=== PATIENT | female | born 1940 | race Caucasian/White ===

== ENCOUNTER 2025-01-14 09:18 | Inpatient (IN) | payer OTHER ==
[2025-01-14] MEDS ORDERED: FAMOTIDINE 20 MG/2 ML VIAL IV ONE (09:40)
[2025-01-14] MEDS ORDERED: NA CHLORIDE 0.9% 1,000 ML ONE (09:40)
[2025-01-14 09:49] LABS: Absolute Lymphocytes (CBC) 0.6 K/uL (0.7-4.9); Absolute Monocytes 1.3 K/uL (0.1-1.3); Absolute Neutrophil 11.1 K/uL (1.8-8.0); Basophils % 0.2 % (0-1.3); Hemoglobin 16.8 g/dL (12.0-15.0); Lymphocytes % 4.7 % (15.3-44.8); MCH 31.3 pg (27.0-35.0); MCHC 34.3 g/dL (32.0-36.0); MCV 91.4 fL (80-100); Monocytes % 9.6 % (3.3-12.3); Neutrophils % 85.5 % (41.7-73.7); Nucleated Red Blood Cells % 0.1 % (0-0); Platelets 222 thou/uL (152-406); RBC Red Blood Cell Count 5.37 M/uL (3.86-4.86); Red Cell Distribution Width 13.2 % (12.1-15.2)
[2025-01-14 09:55] LABS: PT Prothrombin Time 12.5 SECONDS (10-13.0); Protime INR 1.1
[2025-01-14 10:16] LABS: Albumin 3.7 g/dL (3.4-5.0); Albumin/Globulin Ratio 0.9 (1.1-1.8); Anion Gap 11.5 mEq/L (5.0-15.0); Bilirubin Direct 0.7 mg/dL (0-0.2); Bilirubin Indirect, Calculated 1.1 mg/dL (0.2-0.8); Bilirubin Total 1.8 mg/dL (0.2-1.0); Magnesium 2.1 mg/dL (1.6-2.4); Potassium 3.5 mEq/L (3.5-5.1); Protein, Total 7.7 g/dL (6.4-8.2); Troponin High Sensitivity 14.8 pg/mL (<58.9)
--- NOTE | 2025-01-14 10:21 | RAD REPORT ---
Procedure: Chest Single View HISTORY: Abdominal pain COMPARISON: 2020 FINDINGS: The lungs appear clear of acute infiltrate. Lungs are mildly to moderately hyperaerated. No significant pleural effusion noted. The heart is normal size. IMPRESSION: No acute abnormality is displayed.
--- NOTE | 2025-01-14 10:50 | RAD REPORT ---
EXAMINATION: CT ABDOMEN AND PELVIS WITH CONTRAST CLINICAL INDICATION: Abdominal pain TECHNIQUE: CT abdomen and pelvis was performed, after the administration of 100 cc Isovue-300.. Sagit bill and coronal reconstructions were obtained. One or more of the following dose reduction techniques were used: Automated exposure control, adjustment of the mA and kV according to patient si ze, and iterative reconstruction. Unless otherwise specified, incidental findings do not require dedicated imaging follow-up. [id number]. Oral contrast was not given which limits evaluation of bowel and appendix. COMPARISON: .None FINDINGS: Liver, spleen, pancreas, adrenals and kidneys appear unremarkable No evidence of diverticulitis. Hysterectomy. Normal appendix. Moderate dilatation of jejunum and portion of ileum. Ileum enters a right inguinal hernia with a thomas sition point. Remainder of the ileum is decompressed. No free air. No abscess. Small amount of free fluid within the pelvis. Abdominal aorta 2.9 cm. Moderate anterior subluxation L5 on S1. Spondylolysis L5.. Mild chronic compression deformity L2 : IMPRESSION: Ileal obstruction as it enters a right inguinal hernia
[2025-01-14] MEDS ORDERED: PIPERACIL/TAZO 3.375 GM VIAL IV ONE (12:26)
[2025-01-14] MEDS ORDERED: NA CHLORIDE 0.9% 100 ML ONE (12:27)
--- NOTE | 2025-01-14 12:42 | EDPHYS ---
Physician Documentation [facility] Name: Carie Pham Age: 84 yrs Sex: Female : 1940 Arrival Date: 01/14/2025 Time: 09:18 Bed 19 Private MD: ED Physician Torres Bella HPI: 01/14 12:31 This 84 yrs old Female presents to ER via Ambulatory with complaints of js Abdominal Pain, Vomiting, not eating or drinking. 12:31 The patient presents to the emergency department with nausea, that is moderate, js vomiting, that is continuous. Historical: - Allergies: 09:29 No Known Allergies; ll1 - Home Meds: 09:57 Albuterol Inhl 1 inhalation every 4 Hours as needed [Active]; atorvastatin 20 mg oral aa5 tablet every day at bedtime [Active]; Breztri Aerosphere 160-9-4.8 mcg/actuation inhalation HFA Aerosol Inhaler 2 inhalations 2 times per day [Active]; dicyclomine 10 mg Oral capsule [Active]; meloxicam 15 mg oral tablet daily [Active]; Zofran Oral 4 mg PRN [Active]; propranolol 60 mg Oral tablet daily [Active]; Repatha SureClick 140 mg/mL subcutaneous Pen Injector 140 mg every 2 weeks [Active]; ropinirole 1 mg oral tablet every day at bedtime for restless leg syndrome [Active]; trazodone 50 mg oral tablet every day at bedtime [Active]; nicotine 21 mg/24 hr TD patch, transdermal 24 hours daily [Active]; acetaminophen 650 mg oral tablet, extended release every 12 hours for arthritic pain [Active]; - PMHx: 09:30 COPD; Hypertensive disorder; Hypercholesterolemia; Osteoarthritis; Acid Reflux; aa5 09:57 RLS; T1 Vertebral Fracture; aa5 - PSHx: 09:30 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 - Infectious Disease History:: Denies. - Social history:: Smoking status: Patient reports the use of cigarette tobacco products, smokes one pack cigarettes per day. ROS: 12:33 Constitutional: Negative for fever, chills, and weight loss, Eyes: Negative for injury, js pain, redness, and discharge, ENT: Negative for injury, pain, and discharge, Neck: Negative for injury, pain, and swelling, Cardiovascular: Negative for chest pain, palpitations, and edema, Respiratory: Negative for shortness of breath, cough, wheezing, and pleuritic chest pain, Back: Negative for injury and pain, : Negative for injury, bleeding, discharge, and swelling, MS/Extremity: Negative for injury and deformity, Skin: Negative for injury, rash, and discoloration, Neuro: Negative for headache, weakness, numbness, tingling, and seizure, Psych: Negative for depression, anxiety, suicide ideation, homicidal ideation, and hallucinations, Allergy/Immunology: Negative for hives, rash, and allergies, Endocrine: Negative for neck swelling, polydipsia, polyuria, polyphagia, and marked weight changes, Hematologic/Lymphatic: Negative for swollen nodes, abnormal bleeding, and unusual bruising, 12:33 Abdomen/GI: Positive for abdominal pain, nausea and vomiting, of the right lower quadrant, Exam: 12:33 Constitutional: This is a well developed, well nourished patient who is awake, alert, js and in no acute distress. Head/Face: Normocephalic, atraumatic. Eyes: Pupils equal round and reactive to light, extra-ocular motions intact. Lids and lashes normal. Conjunctiva and sclera are non-icteric and not injected. Cornea within normal limits. Periorbital areas with no swelling, redness, or edema. ENT: Nares patent. No nasal discharge, no septal abnormalities noted. Tympanic membranes are normal and external auditory canals are clear. Oropharynx with no redness, swelling, or masses, exudates, or evidence of obstruction, uvula midline. Mucous membranes moist. Neck: Trachea midline, no thyromegaly or masses palpated, and no cervical lymphadenopathy. Supple, full range of motion without nuchal rigidity, or vertebral point tenderness. No Meningismus. Chest/axilla: Normal chest wall appearance and motion. Nontender with no deformity. No lesions are appreciated. Cardiovascular: Regular rate and rhythm with a normal S1 and S2. No gallops, murmurs, or rubs. Normal PMI, no JVD. No pulse deficits. Respiratory: Lungs have equal breath sounds bilaterally, clear to auscultation and percussion. No rales, rhonchi or wheezes noted. No increased work of breathing, no retractions or nasal flaring. Back: No spinal tenderness. No costovertebral tenderness. Full range of motion. Skin: Warm, dry with normal turgor. Normal color with no rashes, no lesions, and no evidence of cellulitis. MS/ Extremity: Pulses equal, no cyanosis. Neurovascular intact. Full, normal range of motion., bilateral aka Neuro: Awake and alert, GCS 15, oriented to person, place, time, and situation. Cranial nerves II-XII grossly intact. Motor strength 5/5 in all extremities. Sensory grossly intact. Cerebellar exam normal. Normal gait. Psych: Awake, alert, with orientation to person, place and time. Behavior, mood, and affect are within normal limits. 12:33 ECG was reviewed by the Attending Physician. 12:33 Abdomen/GI: Inspection: abdomen appears normal, Bowel sounds: active, Palpation: moderate abdominal tenderness, in the left lower quadrant, Vital Signs: 09:29 BP 144 / 87; Pulse 104; Resp 18; Temp 98.1; Pulse Ox 99% ; Weight 58.97 kg; Height 5 ll1 ft. 2 in. ; Pain 10/10; 14:00 BP 127 / 75; Pulse 89; Resp 16; Pulse Ox 93% on R/A; jb4 09:29 Body Mass Index 23.78 (58.97 kg, 157.48 cm) ll1 09:29 Pain Scale: Adult ll1 MDM: 09:24 Medical Screening Exam initiated js 12:37 Differential diagnosis: Nonspecific abd pain, viral gastroenteritis. Data reviewed: [facility] vital signs, nurses notes, lab test result(s), EKG, radiologic studies, CT scan, plain films. Consideration of Admission/Observation Escalation of care including admission/observation considered. I considered the following discharge prescriptions or medication management in the emergency department Medications were administered in the Emergency Department. See MAR. Independent interpretation of the following test(s) in the Emergency Department EKG: See my EKG interpretation above. Test considered but Not performed: Ultrasound no abd usg. Historians other than the Patient: Family Member: multiple family members. Care significantly affected by the following chronic conditions: Hypertension, Chronic Obstructive Pulmonary Disease, gerd, high cholesterol. Counseling: I had a detailed discussion with the patient and/or guardian regarding the historical points, exam findings, and any diagnostic results supporting the discharge/admit diagnosis, lab results, radiology results, the need for further work-up and treatment in the hospital. 01/14 09:25 Order name: Basic Metabolic Panel; Complete Time: 12:02 js 01/14 09:25 Order name: CBC with Diff; Complete Time: 12:02 01/14 09:25 Order name: LFT's; Complete Time: 12:02 01/14 09:25 Order name: Magnesium; Complete Time: 12:02 js 01/14 09:25 Order name: NT PRO-BNP; Complete Time: 12:02 01/14 09:25 Order name: PT-INR; Complete Time: 12:02 01/14 09:25 Order name: Troponin HS; Complete Time: 12:02 js 01/14 09:25 Order name: Lipase; Complete Time: 12:02 js 01/14 09:25 Order name: Urinalysis w/ reflexes js 01/14 13:06 Order name: CBC with Automated Diff EDMS 01/14 13:06 Order name: CBC with Automated Diff EDMS 01/14 13:06 Order name: CBC with Automated Diff EDMS 01/14 13:06 Order name: CBC with Automated Diff EDMS 01/14 13:06 Order name: CBC with Automated Diff EDMS 01/14 13:06 Order name: Comprehensive Metabolic Panel EDMS 01/14 13:06 Order name: Comprehensive Metabolic Panel EDMS 01/14 13:06 Order name: Comprehensive Metabolic Panel EDMS 01/14 13:06 Order name: Comprehensive Metabolic Panel EDMS 01/14 13:06 Order name: Comprehensive Metabolic Panel EDMS 01/14 13:06 Order name: Magnesium EDMS 01/14 13:06 Order name: Magnesium EDMS 01/14 13:06 Order name: Magnesium EDMS 01/14 13:06 Order name: Magnesium EDMS 01/14 13:06 Order name: Magnesium EDMS 01/14 09:25 Order name: XRAY Chest (1 view); Complete Time: 12:02 js 01/14 09:25 Order name: CT Abd/Pelvis - IV Contrast Only; Complete Time: 12:02 js 01/14 09:25 Order name: Cardiac monitoring; Complete Time: 09:55 01/14 09:25 Order name: EKG - Nurse/Tech; Complete Time: 09:55 01/14 09:25 Order name: IV Saline Lock; Complete Time: 09:55 01/14 09:25 Order name: Labs collected and sent; Complete Time: : [facility] 01/14 09:25 Order name: O2 Per Protocol; Complete Time: [facility] 01/14 09:25 Order name: O2 Sat Monitoring; Complete Time: [facility] 01/14 12:29 Order name: NPO; Complete Time: 12:57 js EC:33 Rate is 96 beats/min. Rhythm is regular. QRS [place] is Normal. MT interval is normal. QRS js interval is normal. QT interval is normal. No Q waves. T waves are Normal. No ST changes noted. Clinical impression: NSR w/ Non-specific ST/T Changes and No evidence of ischemia. Interpreted by me. Reviewed by me. Administered Medications: : Drug: NS 0.9% IV 1000 ml IV at 1000 ml once; to be given as a bolus over 60 minutes aa5 Route: IV; Rate: 1000 ml; Site: right antecubital; 09:55 Drug: Famotidine IVP 20 mg IVP once; dilute with 10 mL 0.9% NaCl; give over 2 minutes aa5 Route: IVP; Site: right antecubital; 13:03 Drug: Piperacillin-Tazobactam IVPB 3.375 grams IVPB once over 60 mins; (mix in NS 100 jb4 mL) Route: IVPB; Infused Over: 60 mins; Site: right antecubital; 13:40 Drug: morphine IVP or IV 2 mg IVP once over 4 mins Route: IVP; Infused Over: 4 mins; jb4 Site: right antecubital; 13:40 Drug: Ondansetron IVP 4 mg IVP once; over 2 minutes Route: IVP; Site: right antecubital;jb4 15:13 Not Given (Patient Refused): morphineor iv 2 mg IVP once over 4 mins jb4 Disposition Summary: 01/14/25 12:42 Hospitalization Ordered Notes: Hospitalization Status: Inpatient Admission js Provider: Sherwin Uriostegui cha Location: Telemetry/MedSurg (Inpatient) js Condition: Stable js Problem: new js Symptoms: have improved js Bed/Room Type: Standard [facility] Room Assignment: js Diagnosis - Abdominal tenderness js - Other specified abdominal hernia with obstruction, without gangrene - right js inguinal , ileal obstruction - Vomiting js - COPD/ Chronic obstructive pulmonary disease with (acute) exacerbation js Forms: - Medication Reconciliation Form js - SBAR form js - Leadership Thank You Letter js Signatures: Dispatcher [employer] EDTorres De La Paz MD MD cha Calderon, Audri, RN RN aa5 Rodriguez Aly, RN RN jb4 Ranjit Maciel, SCARLETT RN ll1 Corrections: (The following items were deleted from the chart) 09: 09:25 BASIC METABOLIC PANEL+C.LAB.BRZ ordered. EDMS EDMS 09: 09:25 CBC+H.LAB.BRZ ordered. EDMS EDMS 09: 09:25 HEPATIC FUNCTION+C.LAB.BRZ ordered. EDMS EDMS 09: 09:25 MAGNESIUM+C.LAB.BRZ ordered. EDMS EDMS 09: 09:25 PROBNP+C.LAB.BRZ ordered. EDMS EDMS 09: 09:25 PROTIME (+INR)+COAG.LAB.BRZ ordered. EDMS EDMS 09: 09:25 Troponin High Sensitivity+C.LAB.BRZ ordered. EDMS EDMS 09: 09:25 LIPASE+C.LAB.BRZ ordered. EDMS EDMS 09: 09:25 Urinalysis+U.LAB.BRZ ordered. EDMS EDMS 09: 09:26 Chest Single View+RAD.RAD.BRZ ordered. EDMS EDMS 09: 09:26 Abdomen Pelvis W Con+CT.RAD.BRZ ordered. EDMS EDMS
--- NOTE | 2025-01-14 12:42 | ER ---
Nurse's Notes [facility] Name: Carie Pham Age: 84 yrs Sex: Female : 1940 Arrival Date: 01/14/2025 Time: 09:18 Bed 19 Private MD: Diagnosis: Abdominal tenderness;Other specified abdominal hernia with obstruction, without gangrene-right inguinal , ileal obstruction;Vomiting;COPD/ Chronic obstructive pulmonary disease with (acute) exacerbation Presentation: 01/14 09:29 Chief complaint: Patient states: Abdominal pain with N/V, and not eating well for 5 ll1 days. Coronavirus screen: Client denies travel out of the [place] in the last 14 days. At this time, the client does not indicate any symptoms associated with coronavirus-19. Ebola Screen: Patient denies travel to an Ebola-affected area in the 21 days before illness onset. Initial Sepsis Screen: Does the patient meet any 2 criteria? No. Patient's initial sepsis screen is negative. Does the patient have a suspected source of infection? No. Patient's initial sepsis screen is negative. Risk Assessment: Do you want to hurt yourself or someone else? Patient reports no desire to harm self or others. Onset of symptoms was January 09, 2025. 09:29 Method Of Arrival: Ambulatory ll1 09:29 Acuity: HI 3 ll1 Triage Assessment: 09:31 General: Appears uncomfortable, ill, slender, Behavior is calm, cooperative, ll1 appropriate for age. Pain: Complains of pain in abdomen Quality of pain is described as aching, crampy. Neuro: Reports weakness. GI: Reports lower abdominal pain, upper abdominal pain, bloating, cramping, nausea, vomiting. Historical: - Allergies: 09:29 No Known Allergies; ll1 - Home Meds: 09:57 Albuterol Inhl 1 inhalation every 4 Hours as needed [Active]; atorvastatin 20 mg oral aa5 tablet every day at bedtime [Active]; Breztri Aerosphere 160-9-4.8 mcg/actuation inhalation HFA Aerosol Inhaler 2 inhalations 2 times per day [Active]; dicyclomine 10 mg Oral capsule [Active]; meloxicam 15 mg oral tablet daily [Active]; Zofran Oral 4 mg PRN [Active]; propranolol 60 mg Oral tablet daily [Active]; Repatha SureClick 140 mg/mL subcutaneous Pen Injector 140 mg every 2 weeks [Active]; ropinirole 1 mg oral tablet every day at bedtime for restless leg syndrome [Active]; trazodone 50 mg oral tablet every day at bedtime [Active]; nicotine 21 mg/24 hr TD patch, transdermal 24 hours daily [Active]; acetaminophen 650 mg oral tablet, extended release every 12 hours for arthritic pain [Active]; - PMHx: 09:30 COPD; Hypertensive disorder; Hypercholesterolemia; Osteoarthritis; Acid Reflux; aa5 09:57 RLS; T1 Vertebral Fracture; aa5 - PSHx: 09:30 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 - Infectious Disease History:: Denies. - Social history:: Smoking status: Patient reports the use of cigarette tobacco products, smokes one pack cigarettes per day. Screenin:30 [facility] ED Fall Risk Assessment (Adult) History of falling in the last 3 months, aa5 including since admission No falls in past 3 months (0 pts) Confusion or Disorientation No (0 pts) Intoxicated or Sedated No (0 pts) Impaired Gait No (0 pts) Mobility Assist Device Used No (0 pt) Altered Elimination No (0 pt) Score/Fall Risk Level 0 - 2 = Low Risk Oriented to surroundings, Maintained a safe environment, Educated pt \T\ family on fall prevention, incl call for assistance when getting out of bed, Assessed \T\ reinforced patient's understanding of fall precautions. Abuse screen: Denies threats or abuse. Nutritional screening: No deficits noted. Tuberculosis screening: No symptoms or risk factors identified. Assessment: 09:30 General: Appears uncomfortable, Behavior is calm, cooperative. Pain: Complains of pain aa5 in right lower quadrant and left lower quadrant Pain currently is 10 out of 10 on a pain scale. Quality of pain is described as sharp, Pain began 2-3 days ago. Is continuous. Neuro: Level of Consciousness is awake, alert, obeys commands, Oriented to person, place, time, situation. Cardiovascular: Heart tones S1 S2 present Patient's skin is warm and dry. Rhythm is regular. Respiratory: Airway is patent Respiratory effort is even, unlabored, Respiratory pattern is regular, symmetrical. GI: Abdomen is round non-distended, Bowel sounds present X 4 quads. Abd is soft and non tender X 4 quads. Reports nausea, vomiting, decreased appetite x 5 days ago. : No signs and/or symptoms were reported regarding the genitourinary system. EENT: No signs and/or symptoms were reported regarding the EENT system. Derm: Skin is pink, warm \T\ dry. Musculoskeletal: Range of motion: intact in all extremities. 10:31 Reassessment: Patient is alert, oriented x 3, equal unlabored respirations, skin aa5 warm/dry/pink. Pt back from CT. Call light remains within reach. . 12:00 Reassessment: Patient appears in no apparent distress at this time. Patient and/or jb4 family updated on plan of care and expected duration. Pain level reassessed. Patient is alert, oriented x 3, equal unlabored respirations, skin warm/dry/pink. Vital Signs: 09:29 BP 144 / 87; Pulse 104; Resp 18; Temp 98.1; Pulse Ox 99% ; Weight 58.97 kg; Height 5 ll1 ft. 2 in. ; Pain 10/10; 14:00 BP 127 / 75; Pulse 89; Resp 16; Pulse Ox 93% on R/A; jb4 09:29 Body Mass Index 23.78 (58.97 kg, 157.48 cm) ll1 09:29 Pain Scale: Adult ll1 ED Course: 09:22 Patient arrived in ED. al6 09:23 Arm band placed on Patient placed in an exam room, on a stretcher. ll1 09:24 Torres Bella MD is Attending Physician. js 09:29 Bibiana Wall, RN is Primary Nurse. aa5 09:30 Patient has correct armband on for positive identification. Bed in low position. Call aa5 light in reach. 09:31 Triage completed. ll1 10:13 XRAY Chest (1 view) In Process Unspecified. EDMS 10:28 CT Abd/Pelvis - IV Contrast Only In Process Unspecified. EDMS 10:29 No provider procedures requiring assistance completed. aa5 12:00 Report given to Rodriguez Day RN. aa5 12:40 Sherwin Uriostegui MD is Hospitalizing Provider. [facility] 14:00 Provided Education on: need for admit. jb4 14:00 Patient admitted, IV remains in place. jb4 Administered Medications: 09:55 Drug: NS 0.9% IV 1000 ml IV at 1000 ml once; to be given as a bolus over 60 minutes aa5 Route: IV; Rate: 1000 ml; Site: right antecubital; 09:55 Drug: Famotidine IVP 20 mg IVP once; dilute with 10 mL 0.9% NaCl; give over 2 minutes aa5 Route: IVP; Site: right antecubital; 13:03 Drug: Piperacillin-Tazobactam IVPB 3.375 grams IVPB once over 60 mins; (mix in NS 100 jb4 mL) Route: IVPB; Infused Over: 60 mins; Site: right antecubital; 13:40 Drug: morphine IVP or IV 2 mg IVP once over 4 mins Route: IVP; Infused Over: 4 mins; jb4 Site: right antecubital; 13:40 Drug: Ondansetron IVP 4 mg IVP once; over 2 minutes Route: IVP; Site: right antecubital;jb4 15:13 Not Given (Patient Refused): morphineor iv 2 mg IVP once over 4 mins jb4 Medication: 10:29 VIS not applicable for this client. aa5 Outcome: 12:42 Decision to Hospitalize by Provider. js 14:00 Admitted to OR accompanied by nurse, via stretcher, jb4 14:00 Condition: stable 14:00 Discharge instructions given to patient, family, Instructed on the need for admit, Demonstrated understanding of instructions, 15:15 Patient left the ED. jb4 Signatures: Dispatcher [employer] Torres Walsh MD MD cha Calderon, Audri RN RN aa5 Rodriguez Aly RN RN jb4 Ranjit Maciel RN RN ll1 Chelly Merritt ne6
[2025-01-14] MEDS ORDERED: MORPHINE 2 MG/ML SYR IV PRN (13:02)
[2025-01-14] MEDS ORDERED: ONDANSETRON 4 MG/2 ML VIAL ONE ×2 (13:35→17:14)
[2025-01-14] MEDS ORDERED: MORPHINE 2 MG/ML SYR ONE (13:35)
[2025-01-14] MEDS: Ringers Lactate 1,000 ML IV ONE ×2 (14:58→19:32)
--- NOTE | 2025-01-14 15:41 | P.HP ---
Certification for Inpatient Patient admitted to: Inpatient With expected LOS: >2 Midnights Patient will require the following post-hospital care: None Practitioner: I am a practitioner with admitting privileges, knowledge of patient current condition, hospital course, and medical plan of care. Services: Services provided to patient in accordance with Admission requirements found in Title 42 Section 412.3 of the Code of Federal Regulations Patient History Date of Service: 01/14/25 Reason for admission: SBO/hernia History of Present Illness: 84-year-old female with history of COPD, hypertension, osteoarthritis, GERD presents to the emergency department chief complaint of abdominal pain, nausea and poor oral intake for the past few days. She was evaluated in the emergency department and her labs were significant for a white blood cell count of 13 hemoglobin 16.8 hematocrit 49.0 sodium 135 chloride 93 bicarb 34 glucose 156 T. bili 1.8 BNP 579 EKG shows normal sinus rhythm. CT of the abdomen pelvis was performed which demonstrated ileal obstruction as it enters a right inguinal hernia. General surgery was contacted by emergency department staff who has evaluated patient at bedside and will be taking him to the operating room for surgical intervention. Allergies No Known Allergies Allergy (Unverified 03/03/12 14:41) - Past Medical/Surgical History -: COPD -: Hyperlipidemia -: Osteoarthritis -: GERD -: Partial hysterectomy -: Stomach mass removal-noncancerous Psychosocial/ Personal History: Lives at home with her daughter - Family History Family History: Reviewed- Non-Contributory - Social History Alcohol use: No CD- Drugs: No Caffeine use: Yes Place of Residence: Home Review of Systems 10-point ROS is otherwise unremarkable Gastrointestinal: Nausea, Vomiting, Abdominal Pain Physical Examination - Vital Signs Temperature: 97.6 F Blood Pressure: 131/66 Pulse: 86 Respirations: 18 - Physical Exam General: Alert, In no apparent distress, Oriented x3 HEENT: Atraumatic, PERRLA, EOMI Neck: Supple, 2+ carotid pulse no bruit, No LAD Respiratory: Clear to auscultation bilaterally, Normal air movement Cardiovascular: Regular rate/rhythm, Normal S1 S2 Gastrointestinal: Normal bowel sounds, Tenderness (Moderate generalized abdominal tenderness) Musculoskeletal: No tenderness Integumentary: No rashes Neurological: Normal speech, Normal strength at 5/5 x4 extr, Normal affect - Studies Laboratory Data (last 24 hrs) 01/14/25 01/14/25 01/14/25 09:37 09:37 09:37 WBC 13.00 H Hgb 16.8 H Hct 49.0 H Plt Count 222 PT 12.5 INR 1.10 Sodium 135 L Potassium 3.5 BUN 30 H Creatinine 0.84 Glucose 156 H Magnesium 2.1 Total Bilirubin 1.8 H AST 24 ALT 19 Alkaline Phosphatase 79 Lipase 17 Assessment and Plan - Plan Assessment: Ileal obstruction/right inguinal hernia History of COPD Hyperlipidemia Osteoarthritis GERD Plan: Ileal obstruction/right inguinal hernia Taken to operating room for operative management Continue empiric antibiotics with Zosyn IV fluids, as needed pain medications and antiemetics Further planning per general surgery History of COPD As needed nebulizer treatments Hyperlipidemia Osteoarthritis GERD Continue home medications when verified DVT PPX:SCD Code status:Full Discharge Plan: Home Plan to discharge in: Greater than 2 days - Advance Directives Does patient have a Living Will: No Does patient have a Durable POA for Healthcare: No - Code Status/Comfort Care Code Status Assessed: Yes (Full code) Critical Care: No Time Spent Managing Pts Care (In Minutes): 65
--- NOTE | 2025-01-14 15:50 | P.CNS ---
Date of Consult: 01/14/25 Reason for consult: Abdominal pain History of present illness: Patient is a 84-year-old female comes in with 4-day history of diffuse abdominal pain localizing in the right lower quadrant. Patient has had nausea and vomiting. Patient denies any bowel movement or flatus for the last 4 days. Patient denies any blood per rectum, dysuria or hematuria. Patient denies any sore throat, runny nose, cough, headache, dizziness, chest pain, fever or chills. Review of systems: Otherwise unremarkable Past medical history: COPD, hyperlipidemia, GERD and osteoarthritis Past surgical history: Partial hysterectomy and removal of a large mass via Pfannenstiel incision 15 years ago. Patient and family do not remember the pathology report but were told it was benign. Allergies: None none Social history: She does smoke 1 pack a day for the last 70+ yearspatient was counseled, patient denies drinking alcohol Family history: Noncontributory Vital signs: Stable, afebrile Physical exam: Awake, alert and oriented x 3 Head and neck exam: No neck masses, no JVD, throat clear and neck supple Chest: Clear Heart: S1-S2 Abdomen: Soft, hypoactive bowel sounds, minimal distention with diffuse tenderness and right lower quadrant/right groin hard mass with red skin extremely tender and tense Extremity: Neurovascular intact Neuro: Nonfocal Diagnostic data: CT of the abdomen and pelvis reviewed. Findings are consistent with a incarcerated right inguinal hernia with ileum as a transition point. White count is 13,000 with a left shift remainder of laboratory data reviewed Assessment: Incarcerated right inguinal hernia with possible strangulation given the clinical findings Plan/recommendation: Admit, n.p.o., aggressive hydration and IV antibiotics. To the OR for diagnostic laparoscopy possible exploratory laparotomy possible bowel resection and repair of incarcerated possible strangulated right inguinal hernia. Patient and family understand risk, benefits and alternatives and agreed to procedure. CC:
[2025-01-14] MEDS ORDERED: ROCURONIUM 50 MG/5 ML VIAL IV ONE (16:03)
[2025-01-14] MEDS ORDERED: FENTANYL CITR 250 MCG/5 ML ONE (16:03)
[2025-01-14] MEDS ORDERED: propofoL 200 MG/20 ML VIAL IV ONE (16:03)
[2025-01-14] MEDS: CEFOXITIN SODIUM 1 GM/VIAL ONE (16:23)
[2025-01-14] MEDS ORDERED: dexAMETHasone 4 MG/ML VIAL ONE (17:14)
[2025-01-14] MEDS ORDERED: NEOSTIGMINE 1 MG/ML -10 ML VIAL ONE (17:18)
[2025-01-14] MEDS ORDERED: GLYCOPYRROLATE 0.2 MG/ML SYR ONE (17:19)
--- NOTE | 2025-01-14 17:44 | P.OP ---
Date of Service: 01/14/25 Preop diagnosis: Abdominal pain, incarcerated right inguinal hernia Postop diagnosis: Same with extensive adhesions Procedure performed: Diagnostic laparoscopy, extensive lysis of adhesion, repair of incarcerated right inguinal hernia Surgeon: Ronnie Stovall MD Escalator Mechanic: Cony DIAMOND Estimated blood loss: Minimal Specimen: Hernia sac Findings: As above Anesthesia: General Complications: None Drains: None Fluids and blood products: Nonapplicable Disposition: Recovery room Operative note: Patient brought to the OR and placed in the supine position. General anesthesia began. Patient prepped and draped in usual sterile fashion. Marcaine 0.5% infiltrated locally for postop pain control. 15 blade used to make 1 cm supraumbilical midline incision. Subcutaneous tissue divided and fascia identified and divided. Bleeding controlled cautery. #1 Vicryl stay suture placed. Peritoneal cavity entered with sharp and blunt dissection. 12 mm trocar placed into the peritoneal cavity under direct vision. Pneumoperitoneum established. And under direct vision two 5 mm trocars placed 1 in the right middle quadrant and the other in the right lower quadrant. Laparoscopy revealed extensive adhesions in the midline and the right lower quadrant. LigaSure, scissors and blunt dissection utilized to lyse all of the adhesions for an extended period of time. Bowel was carefully handled while being dissected. The right inguinal hernia was identified. There was incarcerated ileum in the hernia with proximal dilatation and distal collapse. Gentle manipulation of the intestines was utilized to reduce the hernia intraperitonealy. The reduced bowel was carefully examined. There was good color and motility noted. The proximal dilatation began to reduce itself. There was no evidence of bleeding or bowel injury appreciated. Subsequently all trocars were removed under direct vision. Stay sutures were tied to each other to reapproximate the fascial defect. Subcu is wound irrigated and bleeding controlled cautery. 3-0 chromic used to approximate subcutaneous tissue and close skin. A 4 cm incision was made over the hernia site in the right groin. There was still a palpable mass in the right groin. This was the remaining hernia sac. Subcutaneous tissue divided and Chloe's fascia identified and d ivided. Bleeding controlled cautery. Aponeurosis of the external abdominal bleak was greatly attenuated. The hernia sac however was hemorrhagic and had areas of necrosis. The entire hernia sac was excised and sent to pathology as specimen. A 2 cm defect remained. A Marlex mesh plug was placed and secured with absorbable stapler. Onlay mesh was placed on top of the plug and secured with absorbable stapler as well. Complete coverage of the hernia site was accomplished. 3-0 chromic was used to reapproximate Chloe's fascia. 3-0 chromic was also used to close skin. Sterile dressing applied and patient awakened. Patient taken to recovery room in good general condition. CC:
[2025-01-14] MEDS: NA CHLORIDE 0.9% 1,000 ML IV SCH (18:54)
[2025-01-14] MEDS: ONDANSETRON 4 MG/2 ML VIAL IV PRN (18:56)
[2025-01-14] MEDS: PIPER TAZO 3.375 GM in NA CHLORIDE 0.9% 100 ML IV SCH (18:56)
[2025-01-14] MEDS: SUCCINYLCHOLINE 20 MG/ML (10 ML) IV ONE (19:33)
[2025-01-14] MEDS: HYDROMORPHONE HCL 1 MG/ML INJ IV PRN (19:43)
[2025-01-15 06:08] LABS: Absolute Lymphocytes (CBC) 0.3 K/uL (0.7-4.9); Absolute Monocytes 0.5 K/uL (0.1-1.3); Absolute Neutrophil 4.5 K/uL (1.8-8.0); Albumin 2.6 g/dL (3.4-5.0); Albumin/Globulin Ratio 0.9 (1.1-1.8); Anion Gap 11.3 mEq/L (5.0-15.0); Basophils % 0.5 % (0-1.3); Bilirubin Total 1.7 mg/dL (0.2-1.0); Eosinophils % 0.1 % (0-4.4); Hematocrit 42.6 % (36.0-45.0); Hemoglobin 14.6 g/dL (12.0-15.0); Lymphocytes % 5.8 % (15.3-44.8); MCH 31.5 pg (27.0-35.0); MCHC 34.2 g/dL (32.0-36.0); MCV 92.1 fL (80-100); MPV 9.4 fL (7.6-11.3); Magnesium 1.7 mg/dL (1.6-2.4); Monocytes % 9.4 % (3.3-12.3); Neutrophils % 84.2 % (41.7-73.7); Phosphorus 4.4 mg/dL (2.5-4.9); Platelets 181 thou/uL (152-406); Potassium 3.3 mEq/L (3.5-5.1); Protein, Total 5.6 g/dL (6.4-8.2); RBC Red Blood Cell Count 4.63 M/uL (3.86-4.86); Red Cell Distribution Width 13.3 % (12.1-15.2)
[2025-01-15 06:35] LABS: Specific Gravity > 1.030 (1.005-1.030); Urine Bacteria None Seen /HPF (<20); Urine Bilirubin 1+ (Negative); Urine Blood Trace (Negative); Urine Clarity Extremely Turbid (Clear); Urine Color Yellow (Yellow); Urine Culture Reflex Order REFLEXED; Urine Glucose TRACE (Negative); Urine Ketones 1+ (Negative); Urine Microscopic Reflex YN ORDER UMIC; Urine Nitrite NEGATIVE (Negative); Urine Protein 1+ (Negative); Urine Urobilinogen Normal (Normal); Urine pH 5.5 (5.0-7.0)
[2025-01-15 08:00] LABS: Differential Total Cells Count 100; Lymphocytes 12 % (15-42); Monocytes 11 % (0-10); Platelet Estimate ADEQ; Segmented Neutrophils 77 % (40-80)
[2025-01-15 08:01] LABS: Blood Morphology Comment NOT SEEN (NOT SEEN)
[2025-01-15] MEDS: POTASSIUM CL SA 10 MEQ TAB PO ONE (08:31)
--- NOTE | 2025-01-15 09:35 | P.PN ---
Date of Service: 01/15/25 Subjective: Doing well overnight Reports some abdominal soreness but better than yesterday Tolerating clear liquids ROS: 10 point ROS as noted above, otherwise negative Physical exam GEN: Alert, oriented, NAD HEENT: Normal conjunctiva, sclera anicteric CV: Regular rate and rhythm, no edema Pulm: Nonlabored respirations on room air ABD: Soft, mild generalized abdominal tenderness, nondistended, surgical dressings in place MSK: No joint tenderness Integumentary: No rashes Neuro: Normal speech, normal affect Vitals reviewed Assessment: Incarcerated right inguinal hernia with small bowel obstruction status post laparoscopy, adhesion lysis, repair of incarcerated right inguinal hernia 01/14 History of COPD Hyperlipidemia Osteoarthritis GERD Plan: Incarcerated right inguinal hernia with small bowel obstruction status post laparoscopy, adhesion lysis, repair of incarcerated right inguinal hernia 01/14 Status post surgical intervention 01/14 Procedure was able to be done laparoscopically Patient doing well postoperatively, tolerating clear liquids at this time Likely stable for downgrade from ICU pending surgical evaluation Per general surgery, possible discharge in 1 to 2 days History of COPD As needed nebulizer treatments Hyperlipidemia Osteoarthritis GERD Continue home medications DVT PPX:SCD Code status:Full Discharge Plan: Home Plan to discharge in: 1-2 days Time Spent Managing Pts Care (In Minutes): 35
--- NOTE | 2025-01-15 10:40 | PN ---
Date of Progress Note: 01/15/2025 Subjective: The patient is awake, alert. Complaining of incisional pain. Tolerating clear liquids. Has not had a bowel movement or passed any gas yet. Her white count is normal. H and H are stabl e. She was dehydrated, and her H and H had dropped a little bit secondary to hydration. Objective: Vital Signs: Stable. She is afebrile. Abdomen: Soft, nondistended. Positive bowel sounds. Dressings are clean, dry, intact. There is mi nimal incisional tenderness. There is no evidence of peritonitis. Assessment: Status post diagnostic laparoscopy, lysis of adhesions, and repair of incarcerated right inguinal hernia. Recommendation: Clear liquids today. Transfer to regular floor. Continue incentive spirometry and DVT prophylaxis with Lovenox and SCDs. PT if needed for ambulation. The patient is clinically stabl e, slowly improving. Hopefully home in 24 to 48 hours. /MODL Voice ID: [id number] Report ID: [id number]
[2025-01-15] MEDS: ENOXAPARIN 40 MG/0.4 ML SQ SCH (11:25)
[2025-01-15] MEDS: MAGNESIUM SULFATE 1 gm IVPB 1 GM/100 ML BAG IV ONE (11:25)
[2025-01-15] MEDS: HYDROCODONE/APAP 7.5/325 MG TAB PO PRN (11:27)
--- NOTE | 2025-01-15 14:19 | EKG ---
Test Date: 2025-01-14 Test Time: 09:49:19 Machine Carton Marker: DEB MEASUREMENT RESULTS: Intervals: Rate: 96 ND: 132 QRSD: 76 QT: 346 QTc: 437 [place]: P: 74 ND: 132 QRS: 23 T: 12 INTERPRETIVE STATEMENTS: Sinus rhythm Nonspecific ST abnormality Abnormal ECG Compared to ECG 06/28/2009 12:17:55 ST (T wave) deviation now present Sinus bradycardia no longer present Electronically Signed On 01-15-25 14:13:51 CDT by Ethan Earl
[2025-01-15] MEDS: PANTOPRAZOLE 40MG TABLET PO SCH (23:30)
[2025-01-16 05:45] LABS: Hematocrit 41.6 % (36.0-45.0); Hemoglobin 14.2 g/dL (12.0-15.0); MCH 31.9 pg (27.0-35.0); MCHC 34.2 g/dL (32.0-36.0); MCV 93.2 fL (80-100); MPV 10.2 fL (7.6-11.3); Nucleated Red Blood Cells % 0.1 % (0-0); Platelets 164 thou/uL (152-406); RBC Red Blood Cell Count 4.46 M/uL (3.86-4.86); Red Cell Distribution Width 13.3 % (12.1-15.2)
[2025-01-16 06:05] LABS: AST/SGOT 22 U/L (15-37); Albumin 2.3 g/dL (3.4-5.0); Albumin/Globulin Ratio 0.7 (1.1-1.8); Alkaline Phosphatase 49 U/L (45-117); Anion Gap 15.2 mEq/L (5.0-15.0); BUN Blood Urea Nitrogen 53 mg/dL (7-18); Bicarbonate 24 mEq/L (21-32); Bilirubin Total 2.3 mg/dL (0.2-1.0); Globulin 3.3 g/dL (2.3-3.5); Glomerular Filtration Rate 21 ml/min (=/>90); Glucose Level 88 mg/dL (74-106); Potassium 4.2 mEq/L (3.5-5.1); Protein, Total 5.6 g/dL (6.4-8.2); Sodium Level 128 mEq/L (136-145)
[2025-01-16 06:08] LABS: ALT/SGPT < 14 U/L (13-56)
[2025-01-16 08:45] LABS: Band Neutrophils 54 % (0-1); Differential Total Cells Count 100; Lymphocytes 7 % (15-42); Monocytes 8 % (0-10); Myelocytes 2 % (0-0); Segmented Neutrophils 29 % (40-80)
[2025-01-16 08:46] LABS: Blood Morphology Comment NOT SEEN (NOT SEEN); Platelet Estimate ADEQ; Platelets, Giant PRESENT
[2025-01-16] MEDS: BREZTRI IH SCH (09:36)
--- NOTE | 2025-01-16 10:05 | PN ---
Date of Progress Note: 01/16/2025 Subjective: The patient is awake, alert, tolerating clear liquids. No nausea, no vomiting. She is passing gas now. Objective: Vital Signs: Stable. She is afebrile. General: She is awake and alert. Abdomen: Soft, nondistended. Positive bowel sounds. Minimal incisional tenderness. No peritonitis . Dressings are clean, dry, intact. Assessment: Status post diagnostic laparoscopy, lysis of adhesions, and repair of incarcerated right inguinal hernia. Recommendations: Advance diet. Encourage ambulation. Incentive spirometry. The patient is clinica lly improving. Hopefully discharge tomorrow morning if she continues to progress. Please note, I re viewed her laboratory data. White count is normal. /MODL Voice ID: [id number] Report ID: [id number]
[2025-01-16 15:45] VITALS: BMI 23.9
[2025-01-16 15:56] LABS: Anion Gap 13.2 mEq/L (5.0-15.0); Potassium 4.2 mEq/L (3.5-5.1)
[2025-01-16] MEDS: NA CHLORIDE 0.9% 500 ML IV ONE (17:08)
--- NOTE | 2025-01-16 18:03 | RAD REPORT ---
EXAMINATION: US RENAL CLINICAL INDICATION: Acute renal insufficiency TECHNIQUE: Real-time ultrasonography of the kidneys performed. COMPARISON: January 14, 2025 FINDINGS: Right kidney measures 10 cm with a normal echotexture. Left kidney measures 9 cm with normal echotexture. No hydronephrosis No gross abnormality bladder. IMPRESSION: No significant abnormalities displayed
--- NOTE | 2025-01-16 19:03 | P.PN ---
Date of Service: 01/16/25 Subjective: Feeling better, reportedly sits at the bedside chair but leaning forward Creatinine worsening no new complaints ROS: 10 point ROS as noted above, otherwise negative Physical exam GEN: Alert, oriented, NAD HEENT: Normal conjunctiva, sclera anicteric CV: mild tachycardia, no edema Pulm: Nonlabored respirations on room air ABD: mild generalized abdominal tenderness, surgical dressings CDI MSK: No joint tenderness Integumentary: No rashes Neuro: Normal speech, normal affect Vitals reviewed Assessment: Incarcerated right inguinal hernia with small bowel obstruction status post laparoscopy, adhesion lysis, repair of incarcerated right inguinal hernia 01/14 History of COPD Hyperlipidemia Osteoarthritis GERD Plan: Incarcerated right inguinal hernia with small bowel obstruction status post laparoscopy, adhesion lysis, repair of incarcerated right inguinal hernia 01/14 Status post surgical intervention 01/14 Procedure was able to be done laparoscopically Patient doing well postoperatively, tolerating clear liquids at this time Likely stable for downgrade from ICU pending surgical evaluation Per general surgery, possible discharge in 1 to 2 days FRANCIE -Worsening creatinine, 500 ml bolus -redraw BMP at 2000 -bladder scan showing 350 ml -urine output monitoring for the need of a diaz -US bilateral kidney reports "Right kidney measures 10 cm with a normal echotexture. Left kidney measures 9 cm with normal echotexture. No hydronephrosis No gross abnormality bladder." -nephrology consulted History of COPD As needed nebulizer treatments Hyperlipidemia Osteoarthritis GERD Continue home medications DVT PPX:SCD Code status:Full Discharge Plan: Home Plan to discharge in: 1-2 days Time Spent Managing Pts Care (In Minutes): 35
[2025-01-16 20:26] LABS: Anion Gap 14.3 mEq/L (5.0-15.0)
[2025-01-16 20:27] LABS: Potassium 5.3 mEq/L (3.5-5.1)
[2025-01-16] MEDS: D10W 250 ML IV ONE (20:43)
[2025-01-16] MEDS: D10W 125 ML IV PRN (20:45)
[2025-01-16] MEDS ORDERED: D10W 250 ML BAG IV PRN (20:49)
[2025-01-16] MEDS ORDERED: GLUCAGON 1 MG/VIAL IM PRN (20:53)
[2025-01-16 21:59] LABS: Anion Gap 14.2 mEq/L (5.0-15.0); Potassium 4.2 mEq/L (3.5-5.1)
[2025-01-16] MEDS ORDERED: PANTOPRAZOLE 40MG TABLET PO SCH (23:19)
[2025-01-17] MEDS: D5 0.9 NS 1,000 ML IV SCH (00:35)
[2025-01-17 05:55] LABS: Albumin 1.7 g/dL (3.4-5.0); Albumin/Globulin Ratio 0.5 (1.1-1.8); Anion Gap 13.9 mEq/L (5.0-15.0); Bilirubin Total 1.5 mg/dL (0.2-1.0); Globulin 3.2 g/dL (2.3-3.5); Magnesium 1.7 mg/dL (1.6-2.4); Potassium 3.9 mEq/L (3.5-5.1); Protein, Total 4.9 g/dL (6.4-8.2)
[2025-01-17 06:06] LABS: Absolute Lymphocytes (CBC) 0.3 K/uL (0.7-4.9); Absolute Monocytes 0.1 K/uL (0.1-1.3); Absolute Neutrophil 5.4 K/uL (1.8-8.0); Basophils % 0.1 % (0-1.3); Eosinophils % 0.9 % (0-4.4); Hematocrit 34.4 % (36.0-45.0); Hemoglobin 11.9 g/dL (12.0-15.0); Lymphocytes % 4.7 % (15.3-44.8); MCHC 34.4 g/dL (32.0-36.0); MCV 93.1 fL (80-100); MPV 9.9 fL (7.6-11.3); Monocytes % 0.9 % (3.3-12.3); Neutrophils % 93.4 % (41.7-73.7); Nucleated Red Blood Cells % 0.1 % (0-0); Platelets 78 thou/uL (152-406); Red Cell Distribution Width 13.4 % (12.1-15.2)
[2025-01-17] MEDS: POTASSIUM 25 MEQ EFFERV TAB PO ONE (08:25)
[2025-01-17 08:36] LABS: Band Neutrophils 41 % (0-1); Blood Morphology Comment NOT SEEN (NOT SEEN); Differential Total Cells Count 100; Lymphocytes 5 % (15-42); Monocytes 2 % (0-10); Myelocytes 2 % (0-0); Platelet Estimate DECR; Segmented Neutrophils 50 % (40-80); Toxic Granulation 1+
[2025-01-17 08:39] LABS: Dohle Bodies PRESENT
[2025-01-17] MEDS: ATROPINE SULF 1 MG/10 ML SYR IV ONE (09:30)
--- NOTE | 2025-01-17 10:16 | PN ---
Date of Progress Note: 01/17/2025 Subjective: The patient is awake and alert. She is tolerating her regular diet. Objective: Vital Signs: Stable. Blood pressure is a little bit on the low side with systolics betw een 97 and 107, otherwise unremarkable and she is afebrile. She has had decreased urine output, but the urine that she is having is clear. Laboratory Data: Reviewed. Her white count is normal. Her platelet count went down to 78,000 and h er glucose was went down to 59. Sodium is low at 128. Her BUN and creatinine are up at 52 and 3.01. She did have a renal ultrasound done, which showed right kidney and left kidney with normal echotex ture. No hydronephrosis. No gross abnormality in the bladder. No significant abnormalities were fo und. Her abdomen is benign. Her dressing is clean, dry, intact. She does not have peritonitis. Ab domen is not distended, soft. Positive bowel sounds. Please note, she is passing gas and has not saldana d a bowel movement. Assessment: Status post repair of incarcerated right inguinal hernia with acute renal failure/diseas e. Etiology unclear at this time. Appears to be prerenal. Recommendations: We will continue current medical management. Awaiting Nephrology recommendations. From a surgical standpoint, I would encourage the patient to ambulate and use incentive spirometry. Again, this may be related to medications or prerenal. The ultrasound of the abdomen does not show any etiology related to surgery at this time. However, we will follow this patient closely. Plan of care discussed in detail with the hospitalist team and family as well as the patient. /MODL Voice ID: [id number] Report ID: [id number]
--- NOTE | 2025-01-17 11:07 | P.PN ---
Date of Service: 01/17/25 Subjective: Awake eating with family in the room Family is concerned that she is not eating enough Kidney function and sodium level decreased Hypoglycemic overnight, decreased PO intake, changed IVF ROS: 10 point ROS as noted above, otherwise negative Physical exam GEN: Alert andoriented x2, NAD HEENT: Normal conjunctiva, sclera anicteric CV: mild tachycardia, no edema Pulm: Symmetrical chest wall movement, on 2LNC ABD: mild generalized abdominal tenderness, surgical dressings CDI MSK: No joint tenderness Integumentary: No rashes Neuro: Normal speech, normal affect Vitals reviewed Assessment: Incarcerated right inguinal hernia with small bowel obstruction status post laparoscopy, adhesion lysis, repair of incarcerated right inguinal hernia 01/14 FRANCIE Hyponatremia Decreased PO intake Hypoglycemic History of COPD Hyperlipidemia Osteoarthritis GERD Plan: Incarcerated right inguinal hernia with small bowel obstruction status post laparoscopy, adhesion lysis, repair of incarcerated right inguinal hernia 01/14 -Status post surgical intervention 01/14 -Procedure was able to be done laparoscopically -Patient doing well postoperatively, tolerating clear liquids at this time -Likely stable for downgrade from ICU pending surgical evaluation -Per general surgery, possible discharge in 1 to 2 days FRANCIE Hyponatremia -Worsening creatinine, 500 ml bolus -repeat BMP in the afternoon -Diaz catheter in place -US bilateral kidney reports "Right kidney measures 10 cm with a normal echotexture. Left kidney measures 9 cm with normal echotexture. No hydronephrosis No gross abnormality bladder." -nephrology consulted, sodium tablets Decreased PO intake Hypoglycemic -Encourage po intake -Ensure TID -D5 NS IVF History of COPD -As needed nebulizer treatments Hyperlipidemia Osteoarthritis GERD -Continue home medications DVT PPX:SCD Code status:Full Discharge Plan: Home Plan to discharge in: 1-2 days Time Spent Managing Pts Care (In Minutes): 35 <Ally Blair - Last Filed: 01/17/25 15:56> DOS: 01/17/25 Patient seen and examined on rounds 01/17 morning. I performed a substantial part of the MDM during this patient's care today as noted above in the plan of care. I agree with plan of care as noted above with the following additions / corrections: Renal function seems to be plateauing urine starting to become clear this morning unclear etiology of FRANCIE - urine was reportedly very dark pre-op, now starting to clear, could be very behind UOP low renal U/S - unremarkable diaz placed 01/16 nephrology following <Sherwin Uriostegui - Last Filed: 01/18/25 06:50>
[2025-01-17 13:47] LABS: Albumin 1.7 g/dL (3.4-5.0); Albumin/Globulin Ratio 0.5 (1.1-1.8); Anion Gap 11.5 mEq/L (5.0-15.0); Bilirubin Total 1.3 mg/dL (0.2-1.0); Globulin 3.1 g/dL (2.3-3.5); Potassium 4.5 mEq/L (3.5-5.1); Protein, Total 4.8 g/dL (6.4-8.2)
[2025-01-17] MEDS: SODIUM CHLORIDE 1 GM TAB PO SCH (16:16)
[2025-01-17] MEDS: HEPARIN 5000 UNIT/ML 1 ML VIAL SQ SCH (20:36)
--- NOTE | 2025-01-17 21:02 | CON ---
Date of Consultation: 01/17/2025 Chief Complaint: Acute kidney injury. History Of Present Illness: The patient is an 84-year-old woman with history of COPD, hypertension, osteoarthritis, GERD, who presented to emergency room because of abdominal pain, nausea, and decrease d p.o. intake of at least 3-4 days' duration. She was evaluated in the emergency room and her lab wo rk was significant for elevated white count of 13, hemoglobin 16.8, hematocrit 49. Sodium level 135, chloride 93, bicarbonate 34, glucose 156. CT scan of the abdomen and pelvis was performed which dem onstrated ileal obstruction as it enters to right inguinal hernia. General Surgery was consulted by emergency department for ileal obstruction with hernia complication. Review of Systems: Constitutional: The patient denies fevers, chills. Eyes: Denies vision changes. Ears, Nose, Mouth, and Throat: Denies sore throat, earache. Respiratory: Denies PND, orthopnea. Cardiovascular: Denies syncope. GI: Denies nausea, vomiting. She has had abdominal pain. : Denies dysuria or hematuria. All other systems reviewed and all are negative. Past Medical History: COPD, hyperlipidemia, osteoarthritis EB/MODL Voice ID: [id number] Report ID: [id number]
[2025-01-18 01:45] LABS: Specific Gravity 1.011 (1.005-1.030); Urine Bacteria <20 /HPF (<20); Urine Bilirubin NEGATIVE (Negative); Urine Blood 2+ (Negative); Urine Clarity Extremely Turbid (Clear); Urine Color Yellow (Yellow); Urine Culture Reflex Order NOT NEEDED; Urine Glucose NEGATIVE (Negative); Urine Granular Casts >20 /LPF (None Seen); Urine Ketones NEGATIVE (Negative); Urine Microscopic Reflex YN ORDER UMIC; Urine Mucus Slight /HPF (None Seen); Urine Nitrite NEGATIVE (Negative); Urine Protein 1+ (Negative); Urine Urobilinogen Normal (Normal); Urine WBC <5 /HPF (<5); Urine pH 5.5 (5.0-7.0)
[2025-01-18 04:52] LABS: Albumin 1.6 g/dL (3.4-5.0); Albumin/Globulin Ratio 0.5 (1.1-1.8); Anion Gap 11.8 mEq/L (5.0-15.0); Bilirubin Total 1.3 mg/dL (0.2-1.0); Globulin 3.5 g/dL (2.3-3.5); Magnesium 1.8 mg/dL (1.6-2.4); Potassium 3.8 mEq/L (3.5-5.1); Protein, Total 5.1 g/dL (6.4-8.2)
[2025-01-18 07:21] LABS: Absolute Eosinophils 0.1 K/uL (0-0.5); Absolute Lymphocytes (CBC) 0.3 K/uL (0.7-4.9); Absolute Monocytes 0.1 K/uL (0.1-1.3); Absolute Neutrophil 9.6 K/uL (1.8-8.0); Basophils % 0.1 % (0-1.3); Eosinophils % 1.1 % (0-4.4); Hematocrit 33.8 % (36.0-45.0); Hemoglobin 11.6 g/dL (12.0-15.0); Lymphocytes % 2.5 % (15.3-44.8); MCH 31.5 pg (27.0-35.0); MCHC 34.2 g/dL (32.0-36.0); MCV 92.1 fL (80-100); MPV 10.5 fL (7.6-11.3); Monocytes % 0.9 % (3.3-12.3); Neutrophils % 95.4 % (41.7-73.7); Nucleated Red Blood Cells % 0.1 % (0-0); RBC Red Blood Cell Count 3.67 M/uL (3.86-4.86); Red Cell Distribution Width 13.5 % (12.1-15.2)
[2025-01-18 07:25] LABS: Platelets 32 thou/uL (152-406)
[2025-01-18 08:56] LABS: Blood Morphology Comment NOT SEEN (NOT SEEN); Platelet Estimate DECR; White Blood Cell Scan OK (OK)
[2025-01-18 16:10] LABS: Absolute Basophils 0.4 K/uL (0-0.5); Absolute Eosinophils 0.1 K/uL (0-0.5); Absolute Lymphocytes (CBC) 0.3 K/uL (0.7-4.9); Absolute Neutrophil 9.9 K/uL (1.8-8.0); Basophils % 3.8 % (0-1.3); Eosinophils % 0.8 % (0-4.4); Hemoglobin 13.8 g/dL (12.0-15.0); Lymphocytes % 2.9 % (15.3-44.8); MCH 34.8 pg (27.0-35.0); MCHC 37.9 g/dL (32.0-36.0); MCV 91.8 fL (80-100); MPV 9.6 fL (7.6-11.3); Monocytes % 0.2 % (3.3-12.3); Neutrophils % 92.3 % (41.7-73.7); Nucleated Red Blood Cells % 0.2 % (0-0); Platelets 62 thou/uL (152-406); RBC Red Blood Cell Count 3.96 M/uL (3.86-4.86); Red Cell Distribution Width 13.9 % (12.1-15.2)
[2025-01-18 16:11] LABS: Blood Morphology Comment NOT SEEN (NOT SEEN); Platelet Estimate DECR; White Blood Cell Scan OK (OK)
[2025-01-18 16:12] LABS: Hematocrit 38.3 % (36.0-45.0)
--- NOTE | 2025-01-18 16:21 | PN ---
Date of Progress Note: 01/18/2025 Subjective: Patient is awake and alert. Having urine now. Tolerating diet. Pain is well controlle d. Objective: Vital Signs: Stable. She is afebrile. Abdomen: Soft. Dressing is clean, dry, intact. There is no peritonitis. Laboratory Data: Reviewed. White count is 10.1, platelets are still low at 32, and neutrophil perce ntages are high. Her chemistry shows a BUN and creatinine have stabilized at 62 and 3.09. Assessment: Status post diagnostic laparoscopy, lysis of adhesions, and repair of incarcerated right inguinal hernia. Recommendations: Continue medical management. Discussed with the hospitalist team regarding the nee d for possible CT to make sure everything is fine intraperitoneally as her neutrophil percentage is h igh and platelets are low and glucose was on the low side, a day ago. Clinically, she looks better t ramirez her numbers, but we will continue to monitor her until she is stabilized prior to consideration f or discharge. /MODL Voice ID: [id number] Report ID: [id number]
[2025-01-18 16:29] LABS: Anion Gap 12.7 mEq/L (5.0-15.0); Potassium 3.7 mEq/L (3.5-5.1)
--- NOTE | 2025-01-18 16:40 | P.PN ---
Date of Service: 01/18/25 Subjective: awake, eating breakfast in the bedside chair no new complaints attempt to wean oxygen, likely order home oxygen Thrombocytopenia Afternoon rounds, family reports more confusion and hallucinations Nurse reports hypoxia while ambulating to the bathroom ROS: 10 point ROS as noted above, otherwise negative Physical exam GEN: AAOx2, afebrile CV: mild tachycardia, no edema Pulm: Clear BBS, on 2LNC ABD: soft on palpation, surgical dressings CDI MSK: No joint tenderness Integumentary: No rashes Neuro: Normal speech, normal affect Vitals reviewed Assessment: Incarcerated right inguinal hernia with small bowel obstruction status post laparoscopy, adhesion lysis, repair of incarcerated right inguinal hernia 01/14 Hypoxia Thrombocytopenia FRANCIE Hyponatremia Decreased PO intake Hypoglycemic History of COPD Hyperlipidemia Osteoarthritis GERD Plan: Incarcerated right inguinal hernia with small bowel obstruction status post laparoscopy, adhesion lysis, repair of incarcerated right inguinal hernia 01/14 -Status post surgical intervention 01/14 -Procedure was able to be done laparoscopically -Patient doing well postoperatively, tolerating clear liquids at this time -Likely stable for downgrade from ICU pending surgical evaluation -Per general surgery, possible discharge in 1 to 2 days -CT abd/pelvis ordered, results pending Hypoxia -Continue oxygen protocol -Chest xray ordered, result pending Thrombocytopenia -Stop heparin -redraw labs this afternoon and in the AM FRANCIE Hyponatremia -continue D5 NS 75ml/hr -repeat BMP in the afternoon -Rocha catheter in place -US bilateral kidney reports "Right kidney measures 10 cm with a normal echotexture. Left kidney measures 9 cm with normal echotexture. No hydronephrosis No gross abnormality bladder." -nephrology consulted, sodium tablets Decreased PO intake Hypoglycemic -Encourage po intake -Ensure TID -D5 NS IVF History of COPD -As needed nebulizer treatments Hyperlipidemia Osteoarthritis GERD -Continue home medications DVT PPX:SCD Code status:Full Discharge Plan: Home Plan to discharge in: 1-2 days Time Spent Managing Pts Care (In Minutes): 35
--- NOTE | 2025-01-18 20:43 | RAD REPORT ---
EXAMINATION: ONE VIEW CHEST XR CLINICAL INDICATION: Female, 84 years old.,hypoxia / dyspnea on exertion TECHNIQUE: Frontal chest projection is submitted. Examination is limited by patient positioning and t echnique. COMPARISON: 01/14/2025 FINDINGS: Bibasilar hazy opacities and layering effusions larger on the left. Elevation of the left hemidiaphra gm, which appears new since the prior exam. No pneumothorax. The heart is normal in size. Mediastinal contours are unremarkable. IMPRESSION: Bibasilar airspace opacities with effusions larger on the left, could reflect ongoing pulmonary edema . Underlying pneumonia cannot be excluded.
--- NOTE | 2025-01-18 23:32 | RAD REPORT ---
EXAM: CT CHEST, ABDOMEN AND PELVIS WITHOUT CONTRAST CLINICAL INDICATION: Female, 84 years old. [facility] MA[facility] aliza, s/p hernia repair, dyspnea, hypoxia TECHNIQUE: CT chest, abdomen and pelvis was performed, without IV contrast, as per department protoco l. Axial, sagittal and coronal reconstructions were obtained. One or more of the following dose reduction techniques were used: Automated exposure control, adjustment of the mA and/or kV according to the patient size, and/or iterative reconstruction. Unless otherwise specified, incidental findings do not require dedicated imaging follow-up. COMPARISON: 01/14/2025 CT abdomen and pelvis FINDINGS: The lack of intravenous contrast limits the sensitivity of this exam for evaluation of solid visceral organs, vascular structures, and retroperitoneum. Chest: LOWER NECK/CHEST WALL: Visualized thyroid gland and soft tissues are normal. LUNGS AND AIRWAYS: Airways are clear. Left basal subsegmental airspace opacification. Background mode rate centrilobular emphysematous changes.. PLEURA: Small bilateral layering pleural effusions. No pneumothorax. Hemidiaphragms are normally posi tioned. MEDIASTINUM AND LYMPH NODES: No mediastinal mass or fluid collection. Normal size mediastinal, hilar, and axillary lymph nodes. THORACIC AORTA: Normal caliber and configuration. PULMONARY ARTERIES: Normal caliber. HEART: Unremarkable. Abdomen/Pelvis LIVER: Normal in size and contour. No focal lesion. GALLBLADDER/BILE DUCTS: Layering hyperdense sludge. No biliary ductal dilatation. PANCREAS: No mass, ductal dilation, or meredith-pancreatic fluid. SPLEEN: Normal size. No focal lesion. ADRENALS: Normal; no mass. KIDNEYS AND URETERS: Normal size and contour. No hydronephrosis. GASTROINTESTINAL TRACT: Stomach is non-dilated. Proximal small bowel dilation especially along the le ft flank, with progressive gradual transition to nondistended small bowel in the right lower quadrant.. No colonic wall thickening or pericolonic inflammatory changes. PERITONEUM: Trace pelvic free fluid. LYMPH NODES: No lymphadenopathy. ABDOMINAL AORTA AND OTHER VESSELS: Normal caliber aorta and IVC. URINARY BLADDER: Decompressed limiting evaluation. REPRODUCTIVE ORGANS: No pathologic process. MUSCULOSKELETAL: Grade 1 spondylolisthesis at L5-S1. Mild to moderate superior endplate compression d eformities most notably at T4, T7, and L2. The L2 finding appears stable. ADDITIONAL FINDINGS: Moderate diffuse body wall edema. Sequelae of right inguinal hernia repair, with no localized collections or hernias of bowel in the region of the repair. IMPRESSION: Proximal small bowel dilation along the left flank progressive gradual transition to nondistended bow el, suggesting ileus. Bilateral pleural effusions. Left basal subsegmental airspace opacification, favoring atelectasis. No evidence of complications in the right inguinal hernia repair bed. An incidental findings as above .
--- NOTE | 2025-01-19 00:56 | PN ---
Date of Progress Note: 01/18/2025 Chief Complaint: Acute kidney injury. History Of Present Illness: The patient is an 84-year-old woman with history of COPD, hypertension, osteoarthritis, and GERD, who presented to emergency room because of abdominal pain, nausea, and decr eased p.o. intake of at least 3-4 days' duration. She was evaluated in the emergency room and workup showed elevated white count of 13, hemoglobin 16.8, hematocrit 49. Sodium level was 135, chloride 9 3, bicarbonate 34, glucose 156. CT scan of the abdomen and pelvis was performed, which demonstrated ileal obstruction as it enters to right inguinal hernia. Surgery consulted by emergency department f or ileal obstruction with hernia complication. The patient underwent surgery. Review of Systems: Denies chest pain, palpitation. Physical Examination: Lungs: Clear to auscultation bilaterally. HEART: S1 and S2. Abdomen: Soft, benign. Extremities: No edema. Impression And Plan: Acute kidney injury secondary to acute tubular necrosis. Monitor renal functio n and electrolytes. Continue IV fluids. Avoid nephrotoxic medication. Avoid IV contrast exposure. Renal ultrasound will be done to rule out obstructive uropathy. Urinalysis shows hematuria and workup is pending, although patient had a Rocha catheter, wh ich was removed. I discussed with the family further a workup for acute kidney injury. Urine cultur e also was obtained to monitor for urinary tract infection. Continue IV fluids for volume management. Monitor electrolytes daily. CK level checked to rule out rhabdomyolysis and CK level wa s to significant rhabdomyolysis . Continue normal saline. EB/MODL Voice ID: [id number] Report ID: [id number]
[2025-01-19 07:46] LABS: Absolute Eosinophils 0.1 K/uL (0-0.5); Absolute Lymphocytes (CBC) 0.4 K/uL (0.7-4.9); Absolute Monocytes 0.4 K/uL (0.1-1.3); Absolute Neutrophil 10.4 K/uL (1.8-8.0); Basophils % 0.2 % (0-1.3); Eosinophils % 0.8 % (0-4.4); Hematocrit 33.5 % (36.0-45.0); Hemoglobin 11.5 g/dL (12.0-15.0); Lymphocytes % 3.6 % (15.3-44.8); MCH 31.2 pg (27.0-35.0); MCHC 34.2 g/dL (32.0-36.0); Monocytes % 3.6 % (3.3-12.3); Neutrophils % 91.8 % (41.7-73.7); Nucleated Red Blood Cells % 0.1 % (0-0); Platelets 37 thou/uL (152-406); RBC Red Blood Cell Count 3.68 M/uL (3.86-4.86); Red Cell Distribution Width 13.8 % (12.1-15.2)
[2025-01-19 08:00] LABS: Anion Gap 10.6 mEq/L (5.0-15.0); Phosphorus 3.3 mg/dL (2.5-4.9); Potassium 3.6 mEq/L (3.5-5.1)
[2025-01-19] MEDS: FUROSEMIDE 40 MG/4 ML VIAL IV ONE (09:26)
[2025-01-19] MEDS: POTASSIUM CL SA 10 MEQ TAB PO ONE (09:26)
[2025-01-19] MEDS: CALCIUM CARBONATE CHEW 500MG TAB PO PRN (10:01)
--- NOTE | 2025-01-19 10:25 | PN ---
Date of Progress Note: 01/19/2025 Subjective: The patient was admitted to the hospital with small bowel obstruction. The patient had acute kidney injury secondary to prerenal complicated with hyponatremia. Kidney function started imp roving. The patient is feeling better. Physical Examination: Vital Signs: Blood pressure 141/72, pulse of 81, afebrile. Chest: Clear to auscultation. Heart: S1, S2. Systolic murmur. Abdomen: Mild tenderness. Extremities: No edema. Neurologic: Alert. No focality. Laboratory Data: Sodium 135, potassium 3.6, bicarb 23, BUN 62, creatinine down to 2.6, GFR of 17, ca lcium 8.3, phosphorus 3.3, magnesium of 2, hemoglobin 11.5, WBC 11.3. Current Medications: The patient is on include: 1. Zosyn. 2. Calcium carbonate. 3. Lasix, given dose today. 4. Pantoprazole. 5. IV fluid. 6. KCl. Assessment And Plan: 1. Acute kidney injury secondary to prerenal. Continue to improve. I am going to continue to monito r the patient. The patient look on the wet side. I agree with dose of Lasix. We will discontinue I V fluid and we will monitor the patient. 2. Hyponatremia, depletional, resolved, discontinue IV fluid. 3. Hypokalemia. We will supplement. 4. Small bowel obstruction as by primary. ALEXIS Voice ID: [id number] Report ID: [id number]
--- NOTE | 2025-01-19 11:11 | PN ---
Date of Progress Note: 01/19/2025 Subjective: Patient is awake, alert, tolerating diet, ambulating with Physical Therapy, having bowel movements, passing gas. Objective: Vital Signs: Stable. She is afebrile. General: She is not in any pain. Abdomen: Benign. Dressing is clean, dry, intact Laboratory Data: Shows a white count 11.3, platelets are still low at 37, with a left shift. Her ch emistries reviewed. Her BUN and creatinine have improved to 62 and 2.64, and she has adequate urine output. Assessment: Status post repair of right inguinal incarcerated hernia. Recommendation: Please note that the patient did have a CT of the abdomen and pelvis, which did not show any intraabdominal source of infection. The patient does have some atelectasis, however. Zoe numiguel angel present management and medical management. Please consult Surgery on a p.r.n. basis. At this po int, there is no surgical intervention nor recommendation to be made. /MODL Voice ID: [id number] Report ID: [id number]
--- NOTE | 2025-01-19 18:01 | P.PN ---
Date of Service: 01/19/25 Subjective: Awake sitting in the chair home oxygen ordered likely discharge in the AM ROS: 10 point ROS as noted above, otherwise negative Physical exam GEN: Alert and orientedx2, NAD CV: mild tachycardia, no edema Pulm: nonlabored breathing, on 3 LNC ABD: soft on palpation, surgical dressings CDI MSK: No joint tenderness Integumentary: No rashes Neuro: Normal speech, normal affect Vitals reviewed Assessment: Incarcerated right inguinal hernia with small bowel obstruction status post lapa roscopy, adhesion lysis, repair of incarcerated right inguinal hernia 01/14 Hypoxia Thrombocytopenia FRANCIE Hyponatremia Decreased PO intake Hypoglycemic History of COPD Hyperlipidemia Osteoarthritis GERD Plan: Incarcerated right inguinal hernia with small bowel obstruction status post laparoscopy, adhesion lysis, repair of incarcerated right inguinal hernia 01/14 -Status post surgical intervention 01/14 -Procedure was able to be done laparoscopically -Patient doing well postoperatively, tolerating clear liquids at this time -Likely stable for downgrade from ICU pending surgical evaluation -Per general surgery, possible discharge in 1 to 2 days -CT abd/pelvis ordered, results pending Hypoxia -Continue oxygen protocol -Chest xray ordered, result pending -ordered home oxygen Thrombocytopenia -Stop heparin -redraw labs this afternoon and in the AM FRANCIE Hyponatremia -continue D5 NS 75ml/hr -repeat BMP in the afternoon -Rocha catheter in place -US bilateral kidney reports "Right kidney measures 10 cm with a normal echotexture. Left kidney measures 9 cm with normal echotexture. No hydronephrosis No gross abnormality bladder." -nephrology consulted, sodium tablets, stopped IVF, Decreased PO intake Hypoglycemic -Encourage po intake -Ensure TID -IVF stopped History of COPD -As needed nebulizer treatments Hyperlipidemia Osteoarthritis GERD -Continue home medications DVT PPX:SCD Code status:Full Discharge Plan: Home Plan to discharge in: 24hours
[2025-01-20 06:14] LABS: Absolute Eosinophils 0.1 K/uL (0-0.5); Absolute Lymphocytes (CBC) 0.6 K/uL (0.7-4.9); Absolute Monocytes 0.5 K/uL (0.1-1.3); Absolute Neutrophil 10.8 K/uL (1.8-8.0); Eosinophils % 0.8 % (0-4.4); Hematocrit 35.9 % (36.0-45.0); Hemoglobin 12.2 g/dL (12.0-15.0); Lymphocytes % 4.7 % (15.3-44.8); MCH 31.1 pg (27.0-35.0); MCHC 34.1 g/dL (32.0-36.0); MCV 91.1 fL (80-100); MPV 9.5 fL (7.6-11.3); Neutrophils % 90.5 % (41.7-73.7); Platelets 50 thou/uL (152-406); RBC Red Blood Cell Count 3.94 M/uL (3.86-4.86); Red Cell Distribution Width 13.8 % (12.1-15.2)
[2025-01-20 06:34] LABS: Magnesium 1.8 mg/dL (1.6-2.4); Phosphorus 3.2 mg/dL (2.5-4.9)
[2025-01-20] MEDS: POTASSIUM CL SA 10 MEQ TAB PO ONE ×3 (08:23→13:25)
[2025-01-20 08:47] VITALS: O2SAT 95
[2025-01-20 09:23] LABS: Band Neutrophils 2 % (0-1); Differential Total Cells Count 100; Eosinophils 2 % (0-3); Lymphocytes 6 % (15-42); Monocytes 4 % (0-10); Segmented Neutrophils 86 % (40-80)
[2025-01-20 09:24] LABS: Blood Morphology Comment NOT SEEN (NOT SEEN); Platelet Estimate ADEQ
[2025-01-20 10:51] LABS: Complement C3 81 mg/dL (***)
--- NOTE | 2025-01-20 11:36 | PN ---
Date of Progress Note: 01/20/2025 Subjective: The patient was admitted to the hospital with acute kidney injury, small bowel obstructi on. The patient is status post surgery. The patient had hypokalemic kidney function continue to imp rove. IV fluid has been discontinued. Physical Examination: Vital Signs: Blood pressure 130/61, pulse of 80, afebrile. Chest: Clear to auscultation. Heart: S1, S2. Regular. Abdomen: Soft, nontender. Extremities: Trace edema. Neurologic: Alert. No focality. Laboratory Data: WBC 11.9, hemoglobin 12.2. Sodium 134, potassium 3, bicarb 25, BUN 61, creatinine down to 2.1, GFR 22, calcium 8.6, phosphorus 3.2. Current Medications: The patient is on include Zosyn, heparin, Lasix 40, pantoprazole, Zofran, hydro morphone, KCl. Assessment And Plan: 1. Acute kidney injury secondary to prerenal, slightly on the over volume side. I am going to give e xtra dose of Lasix today of hydration. The patient cleared from the renal standpoint for discharge tameka contreras. Follow up in the office in 2 to 3 weeks. 2. Hypokalemia. Continue supplement orally. 3. Small bowel obstruction. The patient cleared from surgical standpoint. 4. Hyponatremia, depletional, resolved. ALEXIS Voice ID: [id number] Report ID: [id number]
[2025-01-20 12:29] VITALS: BP 132/62; TEMP 97.9
[2025-01-20] MEDS: FUROSEMIDE 40 MG/4 ML VIAL IV ONE ×2 (13:02→13:25)
[2025-01-20 13:38] LABS: Complement (CH50), Total 36 U/mL (31-60)
--- NOTE | 2025-01-20 13:57 | P.DS ---
Admission Date: 01/14/25 Discharge Date: 01/20/25 Disposition: ROUTINE DISCHARGE Discharge Condition: GOOD Reason for Admission: SBO/hernia Brief History of Present Illness: Diagnosis Incarcerated right inguinal hernia with small bowel obstruction status post laparoscopy, adhesion lysis, repair of incarcerated right inguinal hernia 01/14 Hypoxia Thrombocytopenia FRANCIE Hyponatremia Decreased PO intake Hypoglycemic History of COPD Hyperlipidemia Osteoarthritis GERD HPI 01/14/25 84-year-old female with history of COPD, hypertension, osteoarthritis, GERD presents to the emergency department chief complaint of abdominal pain, nausea and poor oral intake for the past few days. She was evaluated in the emergency department and her labs were significant for a white blood cell count of 13 hemoglobin 16.8 hematocrit 49.0 sodium 135 chloride 93 bicarb 34 glucose 156 T. bili 1.8 BNP 579 EKG shows normal sinus rhythm. CT of the abdomen pelvis was performed which demonstrated ileal obstruction as it enters a right inguinal hernia. General surgery was contacted by emergency department staff who has evaluated patient at bedside and will be taking him to the operating room for surgical intervention. Hospital Course: Carie was admitted and treated for the following diagnoses Incarcerated right inguinal hernia with small bowel obstruction status post la paroscopy, adhesion lysis, repair of incarcerated right inguinal hernia 01/14 Hypoxia Thrombocytopenia FRANCIE Hyponatremia Decreased PO intake Hypoglycemic-resolved History of COPD Hyperlipidemia Osteoarthritis GERD Diagnostic laparoscopy, extensive lysis of adhesion, repair of incarcerated right inguinal hernia with Dr. Stovall (01/14) Able to tolerate PO intake advancement Repeat CT abd/pelvis reports "Proximal small bowel dilation along the left flank progressive gradual transition to nondistended bowel, suggesting ileus. Bilateral pleural effusions. Left basal subsegmental airspace opacification, favoring atelectasis. No evidence of complications in the right inguinal hernia repair bed. An incidental findings as above." Oxygen protocol, Carie reports using oxygen in the past, set up home oxygen for discharge Chest xray reports "Bibasilar airspace opacities with effusions larger on the left, could reflect ongoing pulmonary edema. Underlying pneumonia cannot be excluded." Stopped heparin continue D5 NS 75ml/hr Rocha catheter removed with appropriate UOP US bilateral kidney reports "Right kidney measures 10 cm with a normal echotexture. Left kidney measures 9 cm with normal echotexture. No hydronephrosis No gross abnormality bladder." nephrology recommended, sodium tablets, stopped IVF Encourage po intake, Ensure TID As needed nebulizer treatments provided Continued home medications On 01/20/25, Carie was seen on morning rounds hemodynamically stable. Dr. Romero has evaluated and cleared her for discharge with follow-up to his clinic in 2 weeks. Amoxicillin and Protonix prescribed. Follow-up with Dr. Turner, Dr. Romero, and Dr. Stovall. Physical exam GEN: AAO x2, NAD CV: RRR, no edema Pulm: Symmetrical chest wall movement, on 3 LNC ABD: soft on palpation, surgical dressings CDI MSK: No joint tenderness Integumentary: No rashes Neuro: Normal speech, normal affect Vital Signs/Physical Exam: Temp Pulse Resp BP Pulse Ox 97.9 F 69 14 132/62 92 01/20/25 12:00 01/20/25 12:00 01/20/25 12:00 01/20/25 12:00 01/20/25 12:00 Laboratory Data at Discharge: WBC 11.90 thou/uL (4.3-10.9) H 01/20/25 06:08 Hgb 12.2 g/dL (12.0-15.0) 01/20/25 06:08 Hct 35.9 % (36.0-45.0) L 01/20/25 06:08 Plt Count 50 thou/uL (152-406) L D 01/20/25 06:08 PT 12.5 SECONDS (10-13.0) 01/14/25 09:37 INR 1.10 01/14/25 09:37 Sodium 134 mEq/L (136-145) L 01/20/25 06:08 Potassium 3.0 mEq/L (3.5-5.1) L D 01/20/25 06:08 BUN 61 mg/dL (7-18) H 01/20/25 06:08 Creatinine 2.14 mg/dL (0.55-1.02) H 01/20/25 06:08 Glucose 123 mg/dL (74-106) H 01/20/25 06:08 Phosphorus 3.2 mg/dL (2.5-4.9) 01/20/25 06:08 Magnesium 1.8 mg/dL (1.6-2.4) 01/20/25 06:08 Total Bilirubin 1.3 mg/dL (0.2-1.0) H 01/18/25 04:18 AST 42 U/L (15-37) H 01/18/25 04:18 ALT 20 U/L (13-56) 01/18/25 04:18 Alkaline Phosphatase 75 U/L (45-117) D 01/18/25 04:18 Lipase 17 U/L (13-75) 01/14/25 09:37 Home Medications: Budesonide/Glycopyr/Formoterol [Breztri Aerosphere Inhaler] 2 puff IH DAILY 01/16/25 Acetaminophen [8 Hour Pain Relief] 650 mg PO 12 PRN 01/17/25 Propranolol [Inderal LA*] 60 mg PO DAILY 01/17/25 Ropinirole HCl [Requip*] 1 mg PO 1X 01/17/25 Amox/Clavulanate [Augmentin 875-125 Tab] 875 mg PO BID 5 Days #10 tab 01/20/25 Pantoprazole [Protonix Tab*] 40 mg PO DAILYAC 30 Days #30 tab 01/20/25 New Medications: Amox/Clavulanate [Augmentin 875-125 Tab] 875 mg PO BID 5 Days #10 tab Pantoprazole [Protonix Tab*] 40 mg PO DAILYAC 30 Days #30 tab Physician Discharge Instructions: 1. Please call and schedule a follow-up appointment with your PCP in 3-5 days - Please follow-up with your PCP for medication refills/adjustments 2. Please call and schedule a follow-up appointment with Dr. Turner in one week -Dr. Turner will manage your oxygen use 3. Please call and schedule a follow-up appointment with Dr. Stovall in one week 4. Please call and schedule a follow-up appointment with Dr. Romero in 2 weeks for monitoring kidney function 5. Continue heart healthy diet 6. activity restrictions fall precautions 7. Return to the ED if symptoms worsen New medications Protonix 40 mg daily Augmentin 875m g twice daily x 5 days Patient may shower Keep Steri-Strips on at all times Incentive spirometry as instructed Follow-up office 1 week, call for appointment Antibiotics per hospitalist team No heavy lifting or strenuous exercise Diet: AHA Activity: Fall precautions Followup: Gerardo Turner MD [ACTIVE - CAN ADMIT] - 1 Week Conor Romero MD [ACTIVE - CAN ADMIT] - 1 Week NONE,NONE [Primary Care Provider] - Ronnie Stovall MD [ACTIVE - CAN ADMIT] - 1 Week
[2025-01-21 20:54] LABS: C-ANCA Anti-Proteinase 3 <1.0 AI (<1.0); P-ANCA Anti-Myeloperoxidase Ab <1.0 AI (<1.0)
== END 2025-01-20 15:45 | disposition home or self-care (01) | DRG 335 ==
LOC: ER 09:18 → ERHOLD 13:01 → 3RD-ICU 16:00 → 2ND 01-17 15:52
PROVIDERS: ADMIT Hospitalist; ATTEND Internal Medicine
PROC: 0YQ50ZZ Repair Right Inguinal Region, Open Approach (ICD-10-PCS; 2025-01-14)
PROC: 0T9B70Z Drainage of Bladder with Drainage Device, Via Natural or Artificial Opening (ICD-10-PCS; 2025-01-14)
PROC: 0DNW4ZZ Release Peritoneum, Percutaneous Endoscopic Approach (ICD-10-PCS; principal; 2025-01-14 15:30)
DX: K40.30 Unilateral inguinal hernia, with obstruction, without gangrene, not specified as recurrent (principal); N17.0 Acute kidney failure with tubular necrosis; E87.1 Hypo-osmolality and hyponatremia; I10 Essential (primary) hypertension; E87.6 Hypokalemia; E78.00 Pure hypercholesterolemia, unspecified; G25.81 Restless legs syndrome; D69.6 Thrombocytopenia, unspecified; M19.90 Unspecified osteoarthritis, unspecified site; J44.9 Chronic obstructive pulmonary disease, unspecified; K21.9 Gastro-esophageal reflux disease without esophagitis; K66.0 Peritoneal adhesions (postprocedural) (postinfection); E11.649 Type 2 diabetes mellitus with hypoglycemia without coma; F17.210 Nicotine dependence, cigarettes, uncomplicated; R31.9 Hematuria, unspecified; Z71.6 Tobacco abuse counseling; Z79.899 Other long term (current) drug therapy
CPT/HCPCS: 36415; 71045; 71250; 74176; 74177; 76770; 80048; 80053; 80076; 81001; 82550; 82570; 82947; 83690; 83735; 83880; 84100; 84156; 84484; 85025; 85610; 86021; 86038; 86160; 86162; 86225; 87086; 87088; 88302; 93005; 94010; 96374; 96375; 97110; 97116; 97161; 97530; 99285; J0461; J0694; J1100; J1171; J1644; J1650; J1938; J2270; J2405; J2543; J2704; J2710; J3010; J3475; J7030; J7042; J7120; Q9967

== ENCOUNTER 2025-01-28 21:59 | Inpatient (IN) | payer OTHER ==
[2025-01-28] MEDS ORDERED: ALBUTEROL 2.5 MG/3 ML NEB SOL NEB PRN (23:16)
[2025-01-28] MEDS ORDERED: SODIUM CHLORIDE 0.9% 10ML INJ IV PRN (23:16)
[2025-01-28] MEDS: METRONIDAZOLE 500mg IVPB 500 MG/100 ML BAG IV SCH (23:25)
[2025-01-28] MEDS ORDERED: VANCOMYCIN 1.5 GM in NA CHLORIDE 0.9% 500 ML IVPB SCH (23:25)
--- NOTE | 2025-01-28 23:28 | P.HP ---
Certification for Inpatient Patient admitted to: Inpatient With expected LOS: >2 Midnights Practitioner: I am a practitioner with admitting privileges, knowledge of patient current condition, hospital course, and medical plan of care. Services: Services provided to patient in accordance with Admission requirements found in Title 42 Section 412.3 of the Code of Federal Regulations Patient History Date of Service: 01/28/25 Reason for admission: Wound dehiscence History of Present Illness: Patient is a 84-year-old female with a past medical history of COPD, hypertension and osteoarthritis and GERD. She returned to the hospital 8 days after recent surgery for right inguinal hernia. Patient underwent laparoscopic lysis of adhesion and repair of her incarcerated hernia on 01/14. She now returns with abdominal pain, feculent discharge out of the surgical site. She initially went to an outside hospital where a CT abdomen and pelvis revealed right inguinal peripherally enhancing fluid collection containing gas. This is concerning for abscess. Patient also has peripherally enhancing fluid collection in the posterior pelvis, also concerning for abscess. CT also shows mildly dilated loops of small bowel concerning for ileus, and abdominal aortic aneurysm measuring 3 cm. Surveillance ultrasound recommended in 3 years Allergies No Known Allergies Allergy (Unverified 03/03/12 14:41) Home Medications: Budesonide/Glycopyr/Formoterol [Breztri Aerosphere Inhaler] 2 puff IH DAILY 01/16/25 Acetaminophen [8 Hour Pain Relief] 650 mg PO 12 PRN 01/17/25 Propranolol [Inderal LA*] 60 mg PO DAILY 01/17/25 Ropinirole HCl [Requip*] 1 mg PO 1X 01/17/25 Amox/Clavulanate [Augmentin 875-125 Tab] 875 mg PO BID 5 Days #10 tab 01/20/25 Pantoprazole [Protonix Tab*] 40 mg PO DAILYAC 30 Days #30 tab 01/20/25 - Past Medical/Surgical History Diabetic: No -: COPD -: Hyperlipidemia -: Osteoarthritis -: GERD -: Partial hysterectomy -: Stomach mass removal-noncancerous -: Hernia repair 01/14 Psychosocial/ Personal History: Lives at home with her daughter - Social History Alcohol use: No CD- Drugs: No Caffeine use: Yes Physical Examination - Vital Signs Temperature: 97.7 F Blood Pressure: 116/56 Pulse: 63 Respirations: 18 Pulse Ox (%): 98 - Physical Exam General: In no apparent distress HEENT: Atraumatic, Normocephalic Respiratory: Clear to auscultation bilaterally, Normal air movement Cardiovascular: No edema, Normal pulses, Regular rate/rhythm, Normal S1 S2 Gastrointestinal: Other (Right lower quadrant with feculent drainage.), Distended, Tenderness Neurological: Normal speech Assessment and Plan - Problems (Diagnosis) (1) Wound dehiscence Current Visit: Yes Status: Acute (2) Abscess, intra-abdominal, postoperative Current Visit: Yes Status: Acute (3) Small bowel obstruction Current Visit: Yes Status: Acute (4) Abdominal aortic aneurysm Current Visit: Yes Status: Acute (5) COPD (chronic obstructive pulmonary disease) Current Visit: Yes Status: Acute (6) Hypertension Current Visit: Yes Status: Acute (7) GERD (gastroesophageal reflux disease) Current Visit: Yes Status: Acute - Plan Assessment This is a 84-year-old female 7 days postop after she required laparoscopic lysis of adhesion and hernia repair for strangulated right inguinal hernia. She now returns to the hospital complaining of abdominal pain and purulent drainage out of the right lower quadrant. CT abdomen pelvis at an outside hospital revealed multifocal areas of abscess collection, and possible small bowel obstruction. Patient had a WBC of more than 12,000 at the outside hospital. She received ciprofloxacin and Flagyl prior to arrival. During my evaluation, she is hemodynamically stable, alert and awake. Postoperative intra-abdominal abscess Small bowel obstruction Abdominal aortic aneurysm COPD Hypertension Osteoarthritis GERD Plan: Will admit inpatient telemetry Start patient on broad-spectrum antibiotics including cefepime, vancomycin and Flagyl IV fluid infusion Obtain blood culture Repeat blood work including lactic acid Multimodal pain regimen Consult general surgery N.p.o. after midnight - Advance Directives Does patient have a Living Will: No Does patient have a Durable POA for Healthcare: No
[2025-01-28] MEDS: NA CHLORIDE 0.9% 1,000 ML IV SCH (23:45)
[2025-01-29] MEDS: HYDROMORPHONE HCL 1 MG/ML INJ IV PRN (00:30)
[2025-01-29 00:46] LABS: Absolute Neutrophil 8.5 K/uL (1.8-8.0); Basophils % 0.4 % (0-1.3); Eosinophils % 0.3 % (0-4.4); Hemoglobin 11.5 g/dL (12.0-15.0); Lymphocytes % 9.1 % (15.3-44.8); MCH 31.3 pg (27.0-35.0); MCV 92.1 fL (80-100); MPV 8.7 fL (7.6-11.3); Monocytes % 9.5 % (3.3-12.3); Neutrophils % 80.7 % (41.7-73.7); Platelets 313 thou/uL (152-406); RBC Red Blood Cell Count 3.69 M/uL (3.86-4.86); Red Cell Distribution Width 13.7 % (12.1-15.2)
[2025-01-29 00:55] LABS: Anion Gap 5.8 mEq/L (5.0-15.0); Magnesium 1.5 mg/dL (1.6-2.4); Phosphorus 3.4 mg/dL (2.5-4.9); Potassium 2.8 mEq/L (3.5-5.1)
[2025-01-29] MEDS: CEFEPIME 1 GM in NA CHLORIDE 0.9% 100 ML IV SCH (01:42)
[2025-01-29] MEDS: VANCOMYCIN 1 GM in NA CHLORIDE 0.9% 250 ML IVPB ONE (02:42)
[2025-01-29] MEDS ORDERED: POTASSIUM CL 40 MEQ in NA CHLORIDE 0.9% 500 ML IV SCH (04:00)
[2025-01-29] MEDS: Magnesium Sulfate 2gm IVPB 2 G/50 ML BAG IV ONE (04:38)
[2025-01-29] MEDS: KCL 20 MEQ/100 mL IVPB 100 ML IV SCH (05:43)
[2025-01-29] MEDS: SUCCINYLCHOLINE 20 MG/ML (10 ML) IV ONE (06:01)
[2025-01-29] MEDS ORDERED: ROCURONIUM 50 MG/5 ML VIAL IV ONE (06:09)
[2025-01-29] MEDS ORDERED: propofoL 200 MG/20 ML VIAL IV ONE (06:09)
[2025-01-29] MEDS ORDERED: FENTANYL CITR 100 MCG/2 ML ONE (06:09)
--- NOTE | 2025-01-29 06:16 | P.CNS ---
Date of Consult: 01/29/25 Reason for consult: Enterocutaneous fistula and intra-abdominal abscess, status for post diagnostic laparoscopy, lysis of adhesion and repair of incarcerated right inguinal hernia on 01/14/2025 History of present illness: Patient is a 84-year-old female who had diagnostic laparoscopy, lysis of adhesions and repair of incarcerated right inguinal hernia with small bowel reduction on 01/14. Postoperatively, her stay in the hospital was prolonged because her kidney function went up but they slowly came back down. 5 days after surgery she had a CT of the chest abdomen pelvis which did not show any evidence of surgical complications at that time. She was doing well up until a couple of days ago in [place], [place]. However yesterday she started having increasing right lower quadrant pain associated with a feculent discharge. She went to the ER in [place], [place] and was evaluated. I was contacted by the emergency room with the following findings: Intra-abdominal and intrapelvic abscess and early small bowel obstruction. Patient denies any nausea, vomiting, diarrhea, constipation, blood in her stool, dysuria or hematuria. Patient denies any sore throat, runny nose, cough, headache, dizziness, chest pain, fever or chills. As this is a known surgical complication, I accepted the patient to our hospital for further management and treatment. Patient was flown from [place] to our hospital in the middle of the night. She is awake and alert and in no distress at this time. Her vitals have remained stable. Her potassium is low and is being replaced. Review of systems: Otherwise unremarkable Past medical history: COPD, hyperlipidemia, osteoarthritis, GERD Past surgical history: Partial hysterectomy and mass of unknown etiology that was removed many years ago from the abdomen and the recent hernia repair per HPI Allergies: None Social history: Patient does not smoke or drink alcohol Family history: Noncontributory Vital signs: Stable, afebrile Physical exam: Awake, alert and oriented x 3 Head and neck exam: No neck masses, no JVD, throat clear and neck supple Chest: Clear Heart: S1-S2 Abdomen: Soft, minimal distention, hypoactive bowel sounds, tenderness in the lower abdomen more on the right side but no evidence of peritonitis : Right inguinal region has a indurated wound with small opening and succus entericus exiting on pressure. There is surrounding erythema. Extremity: Neurovascular intact Neuro: Nonfocal Diagnostic data: Laboratory data reviewed potassium is low is being replaced. 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 Then, diagnostic laparoscopy, possible exploratory laparotomy possible bowel resection, drainage of intra-abdominal pelvic abscess and removal of mesh in the right groin. Patient and daughter understand risk, benefits and alternatives and agreed to procedure. CC:
[2025-01-29] MEDS ORDERED: Phenylephrine HCl 10 MG/ML 1 ML VIAL ONE (06:32)
[2025-01-29] MEDS: CEFOXITIN SODIUM 1 GM/VIAL ONE (06:36)
[2025-01-29] MEDS ORDERED: BUPIVACAINE 0.5% PF 10 ML VIAL ONE (06:44)
[2025-01-29] MEDS ORDERED: dexAMETHasone 4 MG/ML VIAL ONE (06:57)
[2025-01-29] MEDS ORDERED: ONDANSETRON 4 MG/2 ML VIAL ONE (06:57)
[2025-01-29] MEDS ORDERED: EPHEDRINE SULF 50 MG/ML VIAL ONE (07:38)
[2025-01-29] MEDS ORDERED: GLYCOPYRROLATE 0.2 MG/ML SYR ONE (07:45)
[2025-01-29] MEDS ORDERED: NEOSTIGMINE 1 MG/ML -10 ML VIAL ONE (07:45)
--- NOTE | 2025-01-29 07:58 | P.OP ---
Date of Service: 01/29/25 Preop diagnosis: Enterocutaneous fistula, abdominal and pelvic abscess, status post diagnostic lap, lysis of adhesion, repair of incarcerated right inguinal hernia with 2 weeks ago Postop diagnosis: Same Procedure performed: Diagnostic laparoscopy, lysis of adhesions, exploratory laparotomy, drainage of intra-abdominal abscess, exploration of right groin wound and removal of mesh Surgeon: Ronnie Stovall MD Fruit Harvester Machine Operator: Cony DIAMOND Estimated blood loss: Minimal Specimen: Manage for culture and sensitivity Findings: As above Anesthesia: General Complications: None Drains: None none Fluids and blood products: Nonapplicable Disposition: Recovery room Operative note: Patient brought to the OR placed in supine position. General anesthesia began. Patient prepped and draped in usual sterile fashion. Marcaine 0.5% gel locally. 15 blade used to make a 1 cm supraumbilical midline incision. Subcutaneous tissue divided and bleeding controlled with cautery. Fascia identified and divided. #1 Vicryl stay suture placed. Peritoneal cavity entered with sharp and blunt dissection. 12 mm trocar placed into the perit gonzales cavity under direct vision. Pneumoperitoneum established. A 5 mm trocar placed in the right upper quadrant, left upper quadrant and left lower quadrant. Laparoscopy revealed extensive adhesions to the midline. LigaSure was used to divide as much as the omental adhesions safely that we could. Enough adhesions were taken down so midline incision in the lower abdomen could be made. 10 tita de used to extend the umbilicus incision down to near the pubis. Subcutaneous tissue divided and fascia identified and divided. Bleeding controlled cautery. Upon exploration of the abdomen, it was apparent there was extensive inflammation in the tissue and the bowel was very soft the abscess in the right lower quadrant was accessed and pus was evacuated, it was mostly succus entericus. It was the same as succus material that was coming out of the right groin. The cavity was thoroughly irrigated with saline. As this seemed to be the safer route, I felt that more dissection would lead to more intestinal injuries. I considered the risk and benefits of proceeding with an attempt to identify the source of the small bowel injury. Based on the evidence I had at the time, I felt it was safer to drain the abscess and treat the patient medically rather than exploring further and risking more damage and injury to the patient's intestines. Ty-Guan drain #10 flat was placed in the ab scess cavity and secured with 3-0 nylon. The midline fascia was closed with #2 nylon. Subcutaneous wound irrigated and bleeding controlled cautery. Staple used to close skin. The right groin wound was then opened. There was succus entericus present. The mesh was identified and removed. Entire wound was thoroughly irrigated. A small drain, Ty-Guan drain #10 flat was placed and secured with 3-0 nylon. Wound irrigated bleeding controlled cautery. 3-0 chromic used approximate subcutaneous tissue. Luis Antonio used to close the skin loosely. Sterile dressing applied. Patient awakened and taken to recovery room in good general condition. All surgical findings and plan of care was discussed with the daughters in detail. CC:
[2025-01-29] MEDS: Ringers Lactate 1,000 ML IV ONE (08:24)
--- NOTE | 2025-01-29 08:52 | RAD REPORT ---
Exam:Abdomen 1 View (KUB) Clinical history: Nasogastric tube placement FINDINGS: Tip of a nasogastric tube lies 4 cm into the stomach. It should be advanced.
[2025-01-29] MEDS ORDERED: AMINO AC 8 %/D10W/ELECTROLYTES 2,000 ML IV.SOLN IV SCH (09:00)
--- NOTE | 2025-01-29 09:26 | RAD REPORT ---
Exam:Abdomen 1 View (KUB) Clinical history: Nasogastric tube placement FINDINGS: Tip of a nasogastric tube lies 3.7 cm into the stomach. It should be advanced.
[2025-01-29] MEDS: PANTOPRAZOLE 40 MG INJ IVP SCH (10:44)
[2025-01-29 12:10] LABS: Anion Gap 7.1 mEq/L (5.0-15.0); Potassium 4.1 mEq/L (3.5-5.1)
--- NOTE | 2025-01-29 12:16 | P.PN ---
Date of Service: 01/29/25 Subjective: Sitting upright in daughter at bedside. We discussed starting TPN after obtaining PICC. No new complaints. Denies fevers and chills Review of system: 10 point review of systems otherwise negative - Past Medical/Surgical History Diabetic: No -: COPD -: Hyperlipidemia -: Osteoarthritis -: GERD -: Partial hysterectomy -: Stomach mass removal-noncancerous -: Hernia repair 01/14 Psychosocial/ Personal History: Lives at home with her daughter - Social History Alcohol use: No CD- Drugs: No Caffeine use: Yes Physical Examination - Vital Signs Temperature: 97.7 F Blood Pressure: 116/56 Pulse: 63 Respirations: 18 Pulse Ox (%): 98 - Physical Exam General: In no apparent distress HEENT: Atraumatic, Normocephalic Respiratory: Clear to auscultation bilaterally, Normal air movement Cardiovascular: No edema, Normal pulses, Regular rate/rhythm, Normal S1 S2 Gastrointestinal: Other (Right lower quadrant with feculent drainage.), Distended, Tenderness Neurological: Normal speech Assessment and Plan - Problems (Diagnosis) (1) Wound dehiscence Current Visit: Yes Status: Acute (2) Abscess, intra-abdominal, postoperative Current Visit: Yes Status: Acute (3) Small bowel obstruction Current Visit: Yes Status: Acute (4) Abdominal aortic aneurysm Current Visit: Yes Status: Acute (5) COPD (chronic obstructive pulmonary disease) Current Visit: Yes Status: Acute (6) Hypertension Current Visit: Yes Status: Acute (7) GERD (gastroesophageal reflux disease) Current Visit: Yes Status: Acute - Plan Assessment This is a 84-year-old female 7 days postop after she required laparoscopic lysis of adhesion and hernia repair for strangulated right inguinal hernia. She now returns to the hospital complaining of abdominal pain and purulent drainage out of the right lower quadrant. CT abdomen pelvis at an outside hospital revealed multifocal areas of abscess collection, and possible small bowel obstruction. Patient had a WBC of more than 12,000 at the outside hospital. She received ciprofloxacin and Flagyl prior to arrival. During my evaluation, she is hemodynamically stable, alert and awake. Postoperative intra-abdominal abscess Small bowel obstruction Abdominal aortic aneurysm COPD Hypertension Osteoarthritis GERD Plan: Insert PICC line Start TPN Start patient on broad-spectrum antibiotics including cefepime, vancomycin and Flagyl Obtain blood culture Repeat blood work including lactic acid Multimodal pain regimen Appreciate surgery recommendations Pain control with IV Dilaudid - Advance Directives Does patient have a Living Will: No Does patient have a Durable POA for Healthcare: No
--- NOTE | 2025-01-29 12:34 | RAD REPORT ---
Exam:Abdomen 1 View (KUB) Clinical history: Nasogastric tube placement FINDINGS: A nasogastric tube has its tip 2 cm into the stomach. The upper portion of the image demonstrates lacho t a portion of the tube may be coiled within the upper tracheal esophagus.
[2025-01-29] MEDS: AA 5%/D20W/ELECTROLYTES-TPN 2,000 ML, Lipids 20% 250 ML with MULTIVITAMINS INJ 10 ML IV SCH (16:38)
--- NOTE | 2025-01-29 17:35 | RAD REPORT ---
EXAMINATION: ONE VIEW CHEST XR CLINICAL INDICATION: Female, 84 years old.,PICC line placement (right side) TECHNIQUE: Frontal chest projection is submitted. Examination is limited by patient positioning and t echnique. COMPARISON: 01/29/2025 FINDINGS: Right arm PICC in place with tip at the level of the distal SVC. The lungs are well inflated. Central interstitial prominence and perihilar/basilar fluffy opacities.. No pneumothorax or sizable effusion. The heart is normal in size. Mediastinal contours are unremarkable. IMPRESSION: Satisfactory right arm PICC positioning. Interstitial and basilar opacities, concerning for a degree of pulmonary edema.
[2025-01-29] MEDS: NA CHLORIDE 0.9% 1,000 ML IV SCH (19:00)
[2025-01-29] MEDS: Mupirocin NASAL 2 APPL/1 GM TUBE NAS SCH (20:32)
[2025-01-30] MEDS: VANCOMYCIN 1 GM in NA CHLORIDE 0.9% 250 ML IVPB SCH (02:39)
[2025-01-30] MEDS: HYDROMORPHONE HCL 1 MG/ML INJ IV PRN (03:39)
[2025-01-30 05:19] LABS: Absolute Lymphocytes (CBC) 0.8 K/uL (0.7-4.9); Absolute Monocytes 0.8 K/uL (0.1-1.3); Absolute Neutrophil 7.8 K/uL (1.8-8.0); Basophils % 0.4 % (0-1.3); Eosinophils % 0.5 % (0-4.4); Hematocrit 27.3 % (36.0-45.0); Hemoglobin 9.1 g/dL (12.0-15.0); Lymphocytes % 8.9 % (15.3-44.8); MCH 31.5 pg (27.0-35.0); MCHC 33.2 g/dL (32.0-36.0); MCV 94.8 fL (80-100); MPV 8.9 fL (7.6-11.3); Monocytes % 8.3 % (3.3-12.3); Neutrophils % 81.9 % (41.7-73.7); Nucleated Red Blood Cells % 0.1 % (0-0); Platelets 257 thou/uL (152-406); RBC Red Blood Cell Count 2.88 M/uL (3.86-4.86); Red Cell Distribution Width 13.6 % (12.1-15.2)
[2025-01-30 05:36] LABS: Anion Gap 8.1 mEq/L (5.0-15.0); Magnesium 1.9 mg/dL (1.6-2.4); Potassium 3.1 mEq/L (3.5-5.1)
[2025-01-30] MEDS: KCL 20 MEQ/100 mL IVPB 20 MEQ/100 ML BAG IV SCH ×2 (06:23→22:14)
[2025-01-30 06:29] LABS: Specific Gravity 1.021 (1.005-1.030); Sqamous Epithelial <5 /HPF (None Seen); Urine Bacteria <20 /HPF (<20); Urine Bilirubin NEGATIVE (Negative); Urine Blood Negative (Negative); Urine Clarity Extremely Turbid (Clear); Urine Color Yellow (Yellow); Urine Culture Reflex Order REFLEXED; Urine Glucose NEGATIVE (Negative); Urine Ketones NEGATIVE (Negative); Urine Microscopic Reflex YN ORDER UMIC; Urine Mucus 2+ /HPF (None Seen); Urine Nitrite NEGATIVE (Negative); Urine Protein 1+ (Negative); Urine Urobilinogen Normal (Normal); Urine WBC 20-50 /HPF (<5); Urine Yeast (Budding) Many /HPF (None Seen); Urine pH 5.5 (5.0-7.0)
--- NOTE | 2025-01-30 07:49 | P.PN ---
Date of Service: 01/30/25 Subjective: She denies pain. Sitting upright in daughter at bedside. PICC in place. started TPN. no new complaints. Denies fevers and chills. Discussed with ICU nursing staff Review of system: 10 point review of systems otherwise negative - Past Medical/Surgical History Diabetic: No -: COPD -: Hyperlipidemia -: Osteoarthritis -: GERD -: Partial hysterectomy -: Stomach mass removal-noncancerous -: Hernia repair 01/14 Psychosocial/ Personal History: Lives at home with her daughter - Social History Alcohol use: No CD- Drugs: No Caffeine use: Yes Physical Examination - Vital Signs Temperature: 97.7 F Blood Pressure: 116/56 Pulse: 63 Respirations: 18 Pulse Ox (%): 98 - Physical Exam General: In no apparent distress HEENT: Atraumatic, Normocephalic Respiratory: Clear to auscultation bilaterally, Normal air movement Cardiovascular: No edema, Normal pulses, Regular rate/rhythm, Normal S1 S2 Gastrointestinal: Other (Right lower quadrant with feculent drainage.), Distended, Tenderness Neurological: Normal speech Assessment and Plan - Problems (Diagnosis) (1) Wound dehiscence Current Visit: Yes Status: Acute (2) Abscess, intra-abdominal, postoperative Current Visit: Yes Status: Acute (3) Small bowel obstruction Current Visit: Yes Status: Acute (4) Abdominal aortic aneurysm Current Visit: Yes Status: Acute (5) COPD (chronic obstructive pulmonary disease) Current Visit: Yes Status: Acute (6) Hypertension Current Visit: Yes Status: Acute (7) GERD (gastroesophageal reflux disease) Current Visit: Yes Status: Acute - Plan Assessment This is a 84-year-old female 7 days postop after she required laparoscopic lysis of adhesion and hernia repair for strangulated right inguinal hernia. She now returns to the hospital complaining of abdominal pain and purulent drainage out of the right lower quadrant. CT abdomen pelvis at an outside hospital revealed multifocal areas of abscess collection, and possible small bowel obstruction. Patient had a WBC of more than 12,000 at the outside hospital. She received ciprofloxacin and Flagyl prior to arrival. During my evaluation, she is hemodynamically stable, alert and awake. Postoperative intra-abdominal abscess Small bowel obstruction Abdominal aortic aneurysm COPD Hypertension Osteoarthritis GERD Plan: Continue TPN Continue cefepime, Vanc, and Flagyl Blood cultures and urine culture pending Abnormal urinalysis Elevated procalcitonin and CRP, continue antibiotics Multimodal pain regimen Dr. Stovall following and appreciate recommendations Pain control with IV Dilaudid IV calcium gluconate Replace potassium DVT prophylaxis with SCDs - Advance Directives Does patient have a Living Will: No Does patient have a Durable POA for Healthcare: No
[2025-01-30] MEDS: ENOXAPARIN 40 MG/0.4 ML SQ SCH (07:54)
[2025-01-30] MEDS: CALCIUM GLUCONATE 1 GM IVPB 1 GM/50 ML BAG IV ONE (09:06)
--- NOTE | 2025-01-30 09:20 | PN ---
Date of Progress Note: 01/30/2025 Subjective: The patient is awake, alert, no nausea. NG tube came out, we did not replace it as the patient requested not to and was very uncomfortable for her in several attempts. She states that she is passing a little bit of gas, but no bowel movement. Her vital signs are stable. She is afebrile. Her laboratory data reviewed. Her white count is 9.6, there is slight left shift. Chemistry reviewed. Potassium is at 3.1, being replaced. C-reactive and procalcitonin are elevated. Her abdomen is benign. DENNIS output shows 30 cc of dark fluid, but no succus entericus and noted probably some purulence that was in the abscess cavity. Assessment: Status post exploratory laparotomy, drainage of intraabdominal abscess, and removal of infected mesh. Recommendation: Continue present care, IV antibiotics, TPN, n.p.o. It will be discussed with the radiologist on Saturday-- regarding doing either a small bowel series or CAT scan of the abdomen and pelvis to assess the integrity of the small bowel and see if there is damage that needs further intervention or not. This is a complex case and we will move accordingly based on the patient's progress and condition. DAMIEN/MODPaul Voice ID: [id number] Report ID: [id number] EVANS
[2025-01-30] MEDS: AA 5%/D20W/ELECTROLYTES-TPN 2,000 ML IV SCH (16:48)
[2025-01-30] MEDS ORDERED: AA 5%/D20W/ELECTROLYTES-TPN 2,000 ML, Lipids 20% 250 ML with MULTIVITAMINS INJ 10 ML IV SCH (17:00)
[2025-01-30 21:22] LABS: Anion Gap 6.6 mEq/L (5.0-15.0); Potassium 3.6 mEq/L (3.5-5.1)
[2025-01-31 05:46] LABS: Absolute Eosinophils 0.2 K/uL (0-0.5); Absolute Monocytes 1.2 K/uL (0.1-1.3); Absolute Neutrophil 7.8 K/uL (1.8-8.0); Basophils % 0.4 % (0-1.3); Eosinophils % 2.1 % (0-4.4); Hematocrit 25.6 % (36.0-45.0); Hemoglobin 8.5 g/dL (12.0-15.0); Lymphocytes % 9.7 % (15.3-44.8); MCH 31.1 pg (27.0-35.0); MCHC 33.3 g/dL (32.0-36.0); MCV 93.5 fL (80-100); MPV 9.2 fL (7.6-11.3); Monocytes % 11.8 % (3.3-12.3); Platelets 206 thou/uL (152-406); RBC Red Blood Cell Count 2.73 M/uL (3.86-4.86); Red Cell Distribution Width 13.4 % (12.1-15.2)
[2025-01-31 05:58] LABS: Anion Gap 5.8 mEq/L (5.0-15.0); Potassium 3.8 mEq/L (3.5-5.1)
[2025-01-31 05:59] LABS: Magnesium 1.9 mg/dL (1.6-2.4)
[2025-01-31] MEDS: KCL 20 MEQ/100 mL IVPB 20 MEQ/100 ML BAG IV SCH (08:37)
--- NOTE | 2025-01-31 09:11 | PN ---
Date of Progress Note: 01/31/2025 Subjective: The patient is awake, alert. Complaining of incisional pain. No nausea or vomiting. H as not had a bowel movement yet. She thinks she is passing some gas. Her vitals are stable. She is afebrile. Her laboratory data reviewed, shows a white count of 10.2, H and H are 8.5 and 25.6. The left shift is improved. Her abdomen is soft. Hypoactive bowel sounds. Wound is clean, dry, intact in all of them except the wound in the right groin, which has slight opening. It may be brownish li quid, may be bowel contents. Succus entericus coming in mixed in with the purulence is draining. Th ere is no surrounding erythema or warmth. It is draining through the drain as well as through the sm all opening in the incision. The skin was then closed very tightly. This was expected. Assessment: Status post exploratory laparotomy, drainage of intraabdominal abscess, and removal of m esh. Recommendation: I discussed the case with the hospitalist, and we are going to start octreotide that did diminish the small bowel output and I will discuss the case with the radiologist to see which te st is most appropriate; CAT scan or small bowel series and proceed accordingly. In the meantime, we will continue TPN and p.o. and broad-spectrum antibiotics. /MODL Voice ID: [id number] Report ID: [id number]
[2025-01-31] MEDS: OCTREOTIDE ACETATE 100 MCG/ML IV SCH (11:05)
--- NOTE | 2025-01-31 16:59 | P.PN ---
Date of Service: 01/31/25 Subjective: Has more pain today. Daughter remains at bedside. Discussed with Dr. Stovall this morning. No fevers and. Review of system: 10 point review of systems otherwise negative - Past Medical/Surgical History Diabetic: No -: COPD -: Hyperlipidemia -: Osteoarthritis -: GERD -: Partial hysterectomy -: Stomach mass removal-noncancerous -: Hernia repair 01/14 Psychosocial/ Personal History: Lives at home with her daughter - Social History Alcohol use: No CD- Drugs: No Caffeine use: Yes Physical Examination - Vital Signs Temperature: 97.7 F Blood Pressure: 116/56 Pulse: 63 Respirations: 18 Pulse Ox (%): 98 - Physical Exam General: In no apparent distress HEENT: Atraumatic, Normocephalic Respiratory: Clear to auscultation bilaterally, Normal air movement Cardiovascular: No edema, Normal pulses, Regular rate/rhythm, Normal S1 S2 Gastrointestinal: Other (Right lower quadrant with feculent drainage.), Distended, Tenderness Neurological: Normal speech Assessment and Plan - Problems (Diagnosis) (1) Wound dehiscence Current Visit: Yes Status: Acute (2) Abscess, intra-abdominal, postoperative Current Visit: Yes Status: Acute (3) Small bowel obstruction Current Visit: Yes Status: Acute (4) Abdominal aortic aneurysm Current Visit: Yes Status: Acute (5) COPD (chronic obstructive pulmonary disease) Current Visit: Yes Status: Acute (6) Hypertension Current Visit: Yes Status: Acute (7) GERD (gastroesophageal reflux disease) Current Visit: Yes Status: Acute - Plan Assessment This is a 84-year-old female 7 days postop after she required laparoscopic lysis of adhesion and hernia repair for strangulated right inguinal hernia. She now returns to the hospital complaining of abdominal pain and purulent drainage out of the right lower quadrant. CT abdomen pelvis at an outside hospital revealed multifocal areas of abscess collection, and possible small bowel obstruction. Patient had a WBC of more than 12,000 at the outside hospital. She received ciprofloxacin and Flagyl prior to arrival. During my evaluation, she is hemodynamically stable, alert and awake. Postoperative intra-abdominal abscess Small bowel obstruction Abdominal aortic aneurysm COPD Hypertension Osteoarthritis GERD Plan: Continue TPN Continue cefepime, Vanc, and Flagyl Blood cultures and urine culture pending Abnormal urinalysis Elevated procalcitonin and CRP, continue antibiotics Multimodal pain regimen Dr. Stovall following and appreciate recommendations Pain control with IV Dilaudid IV calcium gluconate Replace potassium Start octreotide to decrease small bowel output, pending CT or small bowel series DVT prophylaxis with SCDs - Advance Directives Does patient have a Living Will: No Does patient have a Durable POA for Healthcare: No
[2025-01-31] MEDS: FUROSEMIDE 20 MG/ 2ML VIAL IV ONE (17:33)
--- NOTE | 2025-01-31 19:20 | RAD REPORT ---
EXAMINATION: ONE VIEW CHEST XR CLINICAL INDICATION: Dyspnea TECHNIQUE: Frontal chest projection is submitted. Examination is limited by patient positioning and t echnique. COMPARISON: 01/29/2025 FINDINGS: Moderate airspace opacity is seen in the right lung base likely pneumonia. The heart is mildly promin ent in size. Right-sided venous catheters tip in SVC. IMPRESSION: Moderate airspace opacity in the right lung base likely pneumonia.
[2025-02-01 05:50] LABS: Absolute Basophils 0.1 K/uL (0-0.5); Absolute Eosinophils 0.3 K/uL (0-0.5); Absolute Lymphocytes (CBC) 1.3 K/uL (0.7-4.9); Absolute Monocytes 1.2 K/uL (0.1-1.3); Basophils % 0.6 % (0-1.3); Hematocrit 26.2 % (36.0-45.0); Hemoglobin 8.8 g/dL (12.0-15.0); Lymphocytes % 15.1 % (15.3-44.8); MCH 31.4 pg (27.0-35.0); MCHC 33.7 g/dL (32.0-36.0); MCV 93.2 fL (80-100); MPV 8.8 fL (7.6-11.3); Monocytes % 13.8 % (3.3-12.3); Neutrophils % 67.5 % (41.7-73.7); Platelets 187 thou/uL (152-406); RBC Red Blood Cell Count 2.81 M/uL (3.86-4.86); Red Cell Distribution Width 13.8 % (12.1-15.2)
[2025-02-01 06:11] LABS: Anion Gap 5.9 mEq/L (5.0-15.0); Magnesium 1.8 mg/dL (1.6-2.4); Potassium 3.9 mEq/L (3.5-5.1)
[2025-02-01] MEDS: FUROSEMIDE 20 MG/ 2ML VIAL IV ONE (08:07)
[2025-02-01] MEDS: KCL 20 MEQ/100 mL IVPB 20 MEQ/100 ML BAG IV SCH ×2 (11:35→23:12)
[2025-02-01] MEDS: MAGNESIUM SULFATE 1 gm IVPB 1 GM/100 ML BAG IV ONE ×2 (11:36→23:13)
--- NOTE | 2025-02-01 12:01 | P.PN ---
Subjective Date of Service: 02/01/25 Chief Complaint: Wound dehiscence Subjective: No chest pain or shortness of breath. No nausea or vomiting. c/o abdominal pain. No obvious bleeding. Looks comfortable in the bed. Objective: General appearance: Alert and comfortable CVS: Normal S1 and S2 Lungs: Clear to auscultation bilaterally Abdomen: Soft, dresing present Extremities: mild lower extremity edema Physical Examination - Vital Signs Temperature: 98.9 F Blood Pressure: 171/87 Pulse: 93 Respirations: 22 Pulse Ox (%): 100 - Studies Laboratory Data (last 24 hrs) 02/01/25 02/01/25 02/01/25 Unknown 05:00 05:00 WBC 8.80 Hgb 8.8 L Hct 26.2 L Plt Count 187 Sodium 144 Potassium Cancelled 3.9 BUN 23 H Creatinine 0.52 L Glucose 170 H Magnesium 1.8 Microbiology Data (last 24 hrs): 01/30/25 05:41 Clean Catch Urine [place] Count - Final No growth. 01/30/25 05:41 Clean Catch Urine - Final No growth. Assessment And Plan - Plan This is a 84-year-old female s/p laparoscopic lysis of adhesion and hernia repair for strangulated right inguinal hernia. She now returns to the hospital complaining of abdominal pain and purulent drainage out of the right lower quadrant. CT abdomen pelvis at an outside hospital revealed multifocal areas of abscess collection, and possible small bowel obstruction. Patient had a WBC of more than 12,000 at the outside hospital. She received ciprofloxacin and Flagyl prior to arrival. 1. Postoperative intra-abdominal abscess: s/p surgery and drainage of the absc ess, cultures e.coli - Currently on TPN, IV antibiotics, surgery is following -Started on octreotide to decrease small bowel output, 2. Small bowel obstruction: s/p surgery, repeat CT scan pending today 3. Abdominal aortic aneurysm: Follow-up with PCP 4. COPD: Continue inhalers/nebs 5. Hypertension: As needed IV medications for now. 6. Osteoarthritis: As needed pain medications 7. GERD: cont PPI 8. Acute blood loss anemia: Monitor closely 9. Pneumonia versus CHF: Could be volume overload, stop fluids, give Lasix, already on IV antibiotics. Plan discussed with patient and family at bedside, discussed with nursing staff. Discussed with surgical team.
--- NOTE | 2025-02-01 12:22 | PN ---
Date of Progress Note: 02/01/2025 Subjective: The patient is awake, alert. No new complaints. Objective: Vital Signs: Stable. She is afebrile. Abdomen: Benign. She was started on octreotide yesterday and she has minimal output from her DENNIS génesis in. Her abdomen is soft, nondistended, nontender. Positive bowel sounds. Dressing is clean, dry, i ntact. Laboratory Data: Reviewed. White count is 8.8, left shift has normalized. Electrolytes reviewed. Assessment: Status post exploratory laparotomy and drainage of intraabdominal abscess. Patient with enterocutaneous fistula. Recommendation: We will continue antibiotics, octreotide, TPN. We will get a CT of the abdomen and pelvis. I discussed this with the radiologist and we will make further recommendations after the CAT scan is done. DAMIEN/MAXWELLL Voice ID: [id number] Report ID: [id number]
--- NOTE | 2025-02-01 14:28 | P.CNS ---
Date of Consult: 02/01/25 Chief Complaint: Wound dehiscence History of Present Illness: Patient with no significant PMH presented with abdominal pain, incarcerated inguinal hernia, s/p abscess drainage and surgery, cardiology were consulted due to arrhythmia on tele, patient denies having any cardiac symptoms, no chest pain, no palpitations, no dizzy spells, no syncope. Allergies No Known Allergies Allergy (Unverified 03/03/12 14:41) Home medications list reviewed: Yes Home Medications: Budesonide/Glycopyr/Formoterol [Breztri Aerosphere Inhaler] 2 puff IH DAILY 01/16/25 Acetaminophen [8 Hour Pain Relief] 650 mg PO 12 PRN 01/17/25 Propranolol [Inderal LA*] 60 mg PO DAILY 01/17/25 Ropinirole HCl [Requip*] 1 mg PO BEDTIME 01/17/25 Pantoprazole [Protonix Tab*] 40 mg PO DAILYAC 30 Days #30 tab 01/20/25 - Past Medical/Surgical History Diabetic: No -: COPD -: Hyperlipidemia -: Osteoarthritis -: GERD -: hernia -: Partial hysterectomy -: Stomach mass removal-noncancerous -: Hernia repair 01/14 Psychosocial/ Personal History: Lives at home with her daughter - Social History Smoking Status: Current every day smoker Alcohol use: No CD- Drugs: No Caffeine use: Yes Place of Residence: Home Review of Systems 10-point ROS is otherwise unremarkable Physical Examination Temp Pulse Resp BP Pulse Ox 98.9 F 70 16 152/57 H 100 02/01/25 12:01 02/01/25 14:00 02/01/25 14:00 02/01/25 14:00 02/01/25 14:00 General: Alert, In no apparent distress HEENT: Atraumatic, PERRLA, Mucous membr. moist/pink, EOMI, Sclerae nonicteric Neck: Supple, 2+ carotid pulse no bruit, No LAD, Without JVD or thyroid abnormality Respiratory: Clear to auscultation bilaterally, Normal air movement Cardiovascular: Regular rate/rhythm, Normal S1 S2 Gastrointestinal: Normal bowel sounds, No tenderness Musculoskeletal: No tenderness Integumentary: No rashes Neurological: Normal gait, Normal speech, Normal tone, Normal affect Lymphatics: No axilla or inguinal lymphadenopathy Laboratory Data (last 24 hrs) 02/01/25 02/01/25 02/01/25 Unknown 05:00 05:00 WBC 8.80 Hgb 8.8 L Hct 26.2 L Plt Count 187 Sodium 144 Potassium Cancelled 3.9 BUN 23 H Creatinine 0.52 L Glucose 170 H Magnesium 1.8 - Problems (1) Sinus arrhythmia Current Visit: Yes Status: Acute Plan: EKG reviewed and shows sinus rhythm with sinus arrhythmia recommend IV metoprolol 2.5 mg q6 hours if patient able to take PO then start Lopressor 25 mg po BID Continue to monitor on tele get echo (2) Swelling of lower extremity Current Visit: Yes Status: Acute Plan: continue lasix, continue to monitor input and output and electrolytes get echo (3) Hypertension Current Visit: Yes Status: Acute Plan: as above.
[2025-02-01] MEDS ORDERED: DEXTROSE IVPB SCH ×2 (16:00)
[2025-02-01] MEDS ORDERED: SMZ IVPB SCH ×2 (16:00)
[2025-02-01] MEDS ORDERED: WATER IVPB SCH ×2 (16:00)
[2025-02-01] MEDS ORDERED: TMP IVPB SCH ×2 (16:00)
[2025-02-01] MEDS: HYDRALAZINE HCL 20 MG/ML VIAL IV PRN (16:08)
[2025-02-01] MEDS: MICAFUNGIN SODIUM 100 MG in NA CHLORIDE 0.9% 100 ML IV SCH (16:08)
[2025-02-01] MEDS: FUROSEMIDE 20 MG/ 2ML VIAL IV SCH (16:08)
[2025-02-01] MEDS: WATER IVPB SCH (17:50)
[2025-02-01] MEDS: TMP IVPB SCH (17:50)
[2025-02-01] MEDS: SMZ IVPB SCH (17:50)
[2025-02-01] MEDS: DEXTROSE IVPB SCH (17:50)
--- NOTE | 2025-02-01 18:20 | RAD REPORT ---
EXAMINATION: CT Abdomen Pelvis W Contrast CLINICAL INDICATION: Female, 84 years old. Abdominal Surgery TECHNIQUE: CT abdomen and pelvis was performed, after the administration of IV contrast, as per depar tment protocol. Axial, sagittal and coronal reconstructions were obtained. One or more of the following dose reduction techniques were used: Automated exposure control, adjustment of the mA and k V according to patient size, and iterative reconstruction. Unless otherwise specified, incidental findings do not require dedicated imaging follow-up. COMPARISON: 01/18/2025 and 01/14/[address] FINDINGS: LOWER CHEST: Stable small layering pleural effusions with underlying atelectasis. LIVER: Normal in size and contour. No focal lesion. BILIARY SYSTEM: No suspicious abnormalities. SPLEEN: Normal size. No focal lesion. PANCREAS: No mass, ductal dilation, or meredith-pancreatic fluid. ADRENALS: Normal; no mass. KIDNEYS: Normal size and contour. No hydronephrosis. URINARY BLADDER: Decompressed with Rocha catheter in place.. GASTROINTESTINAL TRACT: Postsurgical changes centered on the right inguinal region, with interval barry cement of surgical drains. The uppermost right flank drain extends through the peritoneum, but terminates within the lower aspect of a sizable collection of fluid and gas within the layers of the anterior abdominal wall, centered on the right rectus abdominis, measuring 8.9 x 4.4 x 9.8 cm in greatest transverse, AP, and CC dimensions. Contrast opacification of the dependent aspect of the col lection. A small tract extends caudally from the lateral posterior aspect of the collection (see series 203 images 60-63), communicating with a surgical tract that extends near the right inguinal ri ng, along the course of the lowermost surgical drain, nearly extending towards the right inguinal skin christine. No clear opacified tract between the bowel and the dominant collection component, altho ugh focal wall prominence of small bowel is seen on axial image 63 series 201, beyond which the course of the bowel cannot be clearly followed Small volume of intra-abdominal free air along the right flank and suprahepatic space. Trace free flu id in the deep dependent pelvis, and trace fluid along the paracolic gutters. No evidence of bowel obstruction or abscess. APPENDIX: Appendix not visualized, but no inflammatory changes in region of appendix. LYMPH NODES: No lymphadenopathy. MUSCULOSKELETAL: No acute or suspicious osseous abnormality. Stable grade 1 anterolisthesis of L5 ove r S1. Stable mild superior endplate compression deformity at L2. ADDITIONAL FINDINGS: Stable mild fusiform infrarenal aneurysmal dilation of the abdominal aorta.. IMPRESSION: Postsurgical changes centered on the right inguinal region. Collection of fluid and gas seen within t he anterior abdominal wall, measuring up to 8.9 x 9.8 x 4.4 cm, containing an air-fluid level, with some contrast opacification. No clear tract between the collection and bowel lumen. Small tract extending from the posterior lateral aspect of the collection towards the more caudal werner gical tract, along the course of the inferior surgical drain, towards the subcutaneous right inguinal region. Bilateral layering small pleural effusions. Other findings as above.
[2025-02-01] MEDS ORDERED: NALOXONE 0.4 MG/ML VIAL IV PRN (19:06)
--- NOTE | 2025-02-01 20:36 | P.CNS ---
Date of Consult: 02/01/25 Chief Complaint: Wound dehiscence History of Present Illness: Patient is a 84-year-old female who had diagnostic laparoscopy, lysis of adhesions and repair of incarcerated right inguinal hernia with small bowel reduction on 01/14. 5 days after surgery she had a CT of the chest abdomen pelvis which did not show any evidence of surgical complications at that time. Family report pt was having RLQ pain and feculent discharge from her surgery area. She went to the ER in [place], [place] and these are the following findings: Intra-abdominal and intrapelvic abscess and early small bowel obstruction. Patient denies any nausea, vomiting, diarrhea, constipation, blood in her stool, dysuria or hematuria. Allergies No Known Drug Allergies - Past Medical/Surgical History Diabetic: No -: COPD -: Hyperlipidemia -: Osteoarthritis -: GERD -: hernia -: Partial hysterectomy -: Stomach mass removal-noncancerous -: Hernia repair 01/14 Psychosocial/ Personal History: Lives at home with her daughter - Social History Smoking Status: Current every day smoker Alcohol use: No CD- Drugs: No Caffeine use: Yes Place of Residence: Home Review of Systems 10-point ROS is otherwise unremarkable except pain in abdomen Physical Examination Temp Pulse Resp BP Pulse Ox 98.9 F 83 28 H 141/51 H 99 02/01/25 18:00 02/01/25 18:00 02/01/25 19:30 02/01/25 17:00 02/01/25 19:30 General: Alert, In no apparent distress HEENT: Atraumatic, PERRLA, Mucous membr. moist/pink, EOMI, Sclerae nonicteric Neck: Supple, 2+ carotid pulse no bruit, No LAD, Without JVD or thyroid abnormality Respiratory: Clear to auscultation bilaterally, Normal air movement Cardiovascular: Regular rate/rhythm, Normal S1 S2 Gastrointestinal: tenderness to RLQ. DENNIS drain and surgical dressing noted Extremity: mild lower extremity edema Neurological: AO x 3 Laboratory Data (last 24 hrs) 02/01/25 02/01/25 02/01/25 Unknown 05:00 05:00 WBC 8.80 Hgb 8.8 L Hct 26.2 L Plt Count 187 Sodium 144 Potassium Cancelled 3.9 BUN 23 H Creatinine 0.52 L Glucose 170 H Magnesium 1.8 Chest xray: Moderate airspace opacity in the right lung base likely pneumonia Assessment and Planning 1. Postoperative intra-abdominal abscess s/p surgery and drainage of the abscess 2. Small bowel obstruction 3.Abdominal aortic aneurysm 4. PNA 5. COPD vs CHF Tissue right groin culture grew E coli, Staph Aureus and María Albican CT abdomen and pelvis pending Pt was tx with cefepime and flagyl for 4 days. Recommend Bactrim and Micafungin due to culture sensitivity. End date january 12. Dr rAiza aware of abx changes and agreed to plan. blood culture negative monitor WBC and fever trend case round and in agreement with Dr barahona thank you for the consult
[2025-02-01] MEDS: HYDROMORPHONE/PCA 10 MG/50 ML SYR IV PRN (21:08)
[2025-02-01 22:35] LABS: Albumin 1.6 g/dL (3.4-5.0); Albumin/Globulin Ratio 0.4 (1.1-1.8); Alkaline Phosphatase 73 U/L (45-117); Anion Gap 4.6 mEq/L (5.0-15.0); BUN Blood Urea Nitrogen 22 mg/dL (7-18); Bicarbonate 34 mEq/L (21-32); Bilirubin Total 0.3 mg/dL (0.2-1.0); Glomerular Filtration Rate 89 ml/min (=/>90); Glucose Level 207 mg/dL (74-106); Potassium 3.6 mEq/L (3.5-5.1); Protein, Total 5.6 g/dL (6.4-8.2); Sodium Level 140 mEq/L (136-145)
[2025-02-01 22:38] LABS: ALT/SGPT < 14 U/L (13-56); AST/SGOT < 10 U/L (15-37)
[2025-02-02] MEDS: TMP IVPB SCH (01:00)
[2025-02-02] MEDS: SMZ IVPB SCH (01:00)
[2025-02-02] MEDS: D5 NS IVPB SCH (01:00)
[2025-02-02] MEDS: ALBUTEROL 2.5 MG/3 ML NEB SOL NEB PRN (02:40)
[2025-02-02] MEDS: IPRATROPIUM BROM 0.5MG/2.5ML NEB PRN (02:40)
[2025-02-02 05:35] LABS: Absolute Basophils 0.1 K/uL (0-0.5); Absolute Eosinophils 0.2 K/uL (0-0.5); Absolute Lymphocytes (CBC) 1.2 K/uL (0.7-4.9); Absolute Monocytes 1.9 K/uL (0.1-1.3); Absolute Neutrophil 6.5 K/uL (1.8-8.0); Basophils % 0.7 % (0-1.3); Eosinophils % 1.6 % (0-4.4); Hematocrit 28.5 % (36.0-45.0); Hemoglobin 9.6 g/dL (12.0-15.0); Lymphocytes % 11.9 % (15.3-44.8); MCH 31.2 pg (27.0-35.0); MCHC 33.7 g/dL (32.0-36.0); MCV 92.6 fL (80-100); MPV 8.5 fL (7.6-11.3); Monocytes % 19.3 % (3.3-12.3); Neutrophils % 66.5 % (41.7-73.7); Platelets 197 thou/uL (152-406); RBC Red Blood Cell Count 3.08 M/uL (3.86-4.86); Red Cell Distribution Width 13.3 % (12.1-15.2)
[2025-02-02 06:44] LABS: Atypical Lymphocytes 2 %; Differential Total Cells Count 100; Eosinophils 3 % (0-3); Lymphocytes 12 % (15-42); Monocytes 14 % (0-10); Segmented Neutrophils 69 % (40-80)
[2025-02-02 06:45] LABS: Blood Morphology Comment NOT SEEN (NOT SEEN); Platelet Estimate ADEQ
[2025-02-02] MEDS: NA CHLORIDE 0.9% 500 ML ONE (08:11)
[2025-02-02] MEDS: ONDANSETRON 4 MG/2 ML VIAL IV PRN (08:19)
[2025-02-02] MEDS ORDERED: D5 NS IVPB SCH (09:00)
[2025-02-02] MEDS ORDERED: SMZ IVPB SCH (09:00)
[2025-02-02] MEDS ORDERED: TMP IVPB SCH (09:00)
[2025-02-02] MEDS: CIPROFLOXACIN 400 MG/200 ML IVPB IV SCH (09:08)
[2025-02-02] MEDS: METRONIDAZOLE 500mg IVPB 500 MG/100 ML BAG IV SCH (09:09)
--- NOTE | 2025-02-02 09:23 | ECHO ---
HEIGHT: 5 ft 2 in WEIGHT: 166 lb 6.4 oz DATE OF STUDY: 02/01/[address]: Ethan Earl MD 2-DIMENSIONAL: YES M.MODE: YES DOPPLER: YES COLOR FLOW: YES TDS: YES PORTABLE: YES DEFINITY: BUBBLE STUDY: DIAGNOSIS: HEART FUNCTION CARDIAC HISTORY: CATHERIZATION: NO SURGERY: NO PROSTHETIC VALVE: NO PACEMAKER: NO MEASUREMENTS (cm) DIASTOLIC (NORMALS) SYSTOLIC (NORMALS) IVSd 1.0 (0.6-1.2) LA Diam 2.2 (1.9-4.0) LVEF 60-65% LVIDd 2.6 (3.5-5.7) LVIDs 1.7 (2.0-3.5) %FS 37% LVPWd 1.1 (0.6-1.2) Ao Diam 2.2 (2.0-3.7) 2 DIMENSIONAL ASSESSMENT: RIGHT ATRIUM: NORMAL LEFT ATRIUM: NORMAL RIGHT VENTRICLE: NORMAL LEFT VENTRICLE: NORMAL TRICUSPID VALVE: TRACE TRICUSPID REGURGITATION MITRAL VALVE: NORMAL PULMONIC VALVE: NORMAL AORTIC VALVE: NORMAL PERICARDIAL EFFUSION: NONE AORTIC ROOT: NORMAL LEFT VENTRICULAR WALL MOTION: NORMAL DOPPLER/COLOR FLOW: NORMAL COMMENTS: 1. NORMAL LEFT VENTRICULAR SYSTOLIC FUNCTION, EJECTION FRACTION 60-65%, NORMAL WALL MOTION TECHNOLOGIST: CAITLIN PEARCE
[2025-02-02 10:04] LABS: Anion Gap 7.7 mEq/L (5.0-15.0); Potassium 3.7 mEq/L (3.5-5.1)
[2025-02-02] MEDS: KCL 20 MEQ/100 mL IVPB 20 MEQ/100 ML BAG IV SCH (10:33)
--- NOTE | 2025-02-02 10:46 | P.PN ---
Subjective Date of Service: 02/02/25 Chief Complaint: Wound dehiscence Subjective: No new changes Review of Systems 10-point ROS is otherwise unremarkable Physical Examination - Vital Signs Temperature: 97.0 F Blood Pressure: 147/68 Pulse: 76 Respirations: 18 Pulse Ox (%): 94 - Physical Exam General: Alert, In no apparent distress HEENT: Atraumatic, PERRLA, EOMI Neck: Supple, JVD not distended Respiratory: Clear to auscultation bilaterally, Normal air movement Cardiovascular: Regular rate/rhythm, Normal S1 S2 Gastrointestinal: Normal bowel sounds, No tenderness Musculoskeletal: No tenderness Integumentary: No rashes Neurological: Normal speech, Normal tone, Normal affect Lymphatics: No axilla or inguinal lymphadenopathy - Studies Laboratory Data (last 24 hrs) 02/02/25 02/02/25 02/02/25 05:15 05:15 05:15 WBC 9.70 Hgb 9.6 L D Hct 28.5 L Plt Count 197 Sodium 141 Potassium 3.7 BUN 21 H Creatinine 0.58 Glucose 152 H Magnesium 2.0 Total Bilirubin AST ALT Alkaline Phosphatase 02/01/25 02/01/25 02/01/25 Unknown 22:10 22:10 WBC Hgb Hct Plt Count Sodium 140 Potassium Cancelled 3.6 BUN 22 H Creatinine 0.60 Glucose 207 H Magnesium 1.7 Total Bilirubin 0.3 AST < 10 L ALT < 14 Alkaline Phosphatase 73 02/01/25 15:05 WBC Hgb Hct Plt Count Sodium 143 Potassium 4.0 BUN 23 H Creatinine 0.59 Glucose 177 H Magnesium Total Bilirubin AST ALT Alkaline Phosphatase Microbiology Data (last 24 hrs): 01/29/25 07:25 Tissue - Right Groin Gram Stain - Final 01/29/25 07:25 Tissue - Right Groin Culture & Sensitivity - Final Escherichia Coli Staph Aureus María Albicans 01/30/25 05:41 Clean Catch Urine [place] Count - Final No growth. 01/30/25 05:41 Clean Catch Urine - Final No growth. Medications List Reviewed: Yes Assessment And Plan - Current Problems (Diagnosis) (1) Sinus arrhythmia Current Visit: Yes Status: Acute Plan: EKG reviewed and shows sinus rhythm with sinus arrhythmia recommend IV metoprolol 2.5 mg q6 hours if patient able to take PO then start Lopressor 25 mg po BID Continue to monitor on tele get echo (2) Swelling of lower extremity Current Visit: Yes Status: Acute Plan: continue lasix, continue to monitor input and output and electrolytes get echo (3) Hypertension Current Visit: Yes Status: Acute Plan: as above.
--- NOTE | 2025-02-02 11:40 | P.PN ---
Subjective Date of Service: 02/02/25 Chief Complaint: Wound dehiscence Subjective: No chest pain or shortness of breath. No nausea or vomiting. c/o abdominal pain. No obvious bleeding. Looks comfortable in the bed. Objective: General appearance: Alert and comfortable CVS: Normal S1 and S2 Lungs: Clear to auscultation bilaterally Abdomen: Soft, BS+, dresing present, tendeerness present Extremities: mild lower extremity edema Physical Examination - Vital Signs Temperature: 97.0 F Blood Pressure: 147/68 Pulse: 76 Respirations: 18 Pulse Ox (%): 94 - Studies Laboratory Data (last 24 hrs) 02/02/25 02/02/25 02/02/25 05:15 05:15 05:15 WBC 9.70 Hgb 9.6 L D Hct 28.5 L Plt Count 197 Sodium 141 Potassium 3.7 BUN 21 H Creatinine 0.58 Glucose 152 H Magnesium 2.0 Total Bilirubin AST ALT Alkaline Phosphatase 02/01/25 02/01/25 02/01/25 22:10 22:10 15:05 WBC Hgb Hct Plt Count Sodium 140 143 Potassium 3.6 4.0 BUN 22 H 23 H Creatinine 0.60 0.59 Glucose 207 H 177 H Magnesium 1.7 Total Bilirubin 0.3 AST < 10 L ALT < 14 Alkaline Phosphatase 73 Microbiology Data (last 24 hrs): 01/29/25 07:25 Tissue - Right Groin Gram Stain - Final 01/29/25 07:25 Tissue - Right Groin Culture & Sensitivity - Final Escherichia Coli Staph Aureus María Albicans 01/30/25 05:41 Clean Catch Urine [place] Count - Final No growth. 01/30/25 05:41 Clean Catch Urine - Final No growth. Medications List Reviewed: Yes Assessment And Plan - Plan This is a 84-year-old female s/p laparoscopic lysis of adhesion and hernia repair for strangulated right inguinal hernia. She now returns to the hospital complaining of abdominal pain and purulent drainage out of the right lower quadrant. CT abdomen pelvis at an outside hospital revealed multifocal areas of abscess collection, and possible small bowel obstruction. Patient had a WBC of more than 12,000 at the outside hospital. She received ciprofloxacin and Flagyl prior to arrival. 1. Postoperative intra-abdominal abscess: s/p surgery and drainage of the abscess, cultures e.coli, staph and maría - Currently on TPN, IV antibiotics, surgery and ID is following -Started on octreotide to decrease small bowel output, 2. Small bowel obstruction: s/p surgery, repeat CT scan 02/01 showe stable abscess 3. Abdominal aortic aneurysm: Follow-up with PCP 4. COPD: Continue inhalers/nebs 5. Hypertension: schedule IV metoprolol 6. Osteoarthritis: As needed pain medications 7. GERD: cont PPI 8. Acute blood loss anemia: Monitor closely 9. Pneumonia versus CHF: Could be volume overload, stopped fluids, continue Lasix, already on IV antibiotics, check lower extremity doppler. Plan discussed with patient, discussed with nursing staff. Discussed with surgical team, need LTACH.
--- NOTE | 2025-02-02 11:47 | EKG ---
Test Date: 2025-02-01 Test Time: 10:54:05 Chemical Checker: HOLLY MEASUREMENT RESULTS: Intervals: Rate: 72 WI: 138 QRSD: 76 QT: 372 QTc: 407 King: P: 91 WI: 138 QRS: -3 T: 33 INTERPRETIVE STATEMENTS: Sinus rhythm with premature atrial complexes Otherwise normal ECG Compared to ECG 01/17/2025 03:03:45 Myocardial infarct finding no longer present Electronically Signed On 02-02-25 11:46:29 CDT by Ethan Earl
[2025-02-02] MEDS: METOPROLOL TARTRATE 5 MG/5 ML INJ IV SCH (12:09)
[2025-02-02] MEDS: FUROSEMIDE 40 MG/4 ML VIAL IV SCH (12:09)
--- NOTE | 2025-02-02 15:28 | PN ---
Date of Progress Note: 02/02/2025 Subjective: The patient is awake, alert. 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 Her CT of the abdomen and pelvis was reviewed with the radiologist and basically it shows a collection of fluid and gas within the anterior abdominal wall measuring up to 8.9 x 9.8 x 4.4 cm containing air-fluid level with some contrast deposition. No clear tract between the collection and bowel movement. Small tract extends from the posterior lateral aspect of the collection toward the more caudal surgical tract along the course of the inferior surgical drain toward the subcutaneous right inguinal region. Bilateral layering of the small pleural effusion. So it appears that the drain is in the right place for drainage purposes. Objective: Vital Signs: Stable. She is afebrile. Her I's and O's are reviewed. Her drains put out 190 cc in the last 24 hours. Abdomen: Benign. Laboratory Data: Reviewed. Her white count is 9.7. There is no left shift. Chemistry reviewed, essentially unremarkable. Her cultures are growing out E coli, Staph aureus, and María albicans. ID has seen the patient and adjusted the antibiotics accordingly. Assessment: A low output enterocutaneous fistula. Recommendations: Continue IV antibiotics per ID, TPN, octreotide. Discussed in detail the plan with the family. The patient is appropriate for LTAC for all of her needs. I would recommend a trial of conservative treatment prior to any consideration for surgical intervention as she has a very difficult abdomen to operate in. /MODL Voice ID: [id number] Report ID: [id number] [facility]ITALKelly
--- NOTE | 2025-02-02 17:37 | RAD REPORT ---
EXAMINATION: US LOWER EXTREMITY VENOUS DOPPLER BILATERAL CLINICAL INDICATION: Female, 84 years old.swelling lower extremeties TECHNIQUE: Complete bilateral duplex sonography of the lower extremity veins was performed. The exami nation included compression for vein patency, color Doppler imaging and flow augmentation in response to distal compression of the distal external iliac, common femoral, femoral, popliteal, sheila ten, tibial and great saphenous veins. [id number]. COMPARISON: No prior exams FINDINGS: Duplex sonography imaging demonstrates all deep examined to be fully compressible with spontaneous, p hasic and augmented flow bilaterally. IMPRESSION: No evidence of deep venous thrombosis seen in either lower extremity.
--- NOTE | 2025-02-02 22:44 | PN ---
Subjective: The patient is lying in bed, in ICU bed 1. Daughter by the bedside. Opens eyes spontan eously. Continued to have abdominal discomfort. No chest pain or shortness of breath. No nausea, v omiting. According to staff, the patient has not passed any bowel or gas since the surgery. Objective: Vital Signs: Temperature 97, pulse 75, respirations 18, blood pressure 132/46. Lungs: Basal crackles. Heart: S1, S2. Regular. Abdomen: Soft, nontender. Bowel sounds present. Extremities: Trace edema. Laboratory Data: WBC 9.7, hemoglobin 9.6, platelets are 197. Chemistry shows BUN of 21, creatinine 0.5. CT abdomen and pelvis done yesterday showed the patient has postsurgical changes centered on th e right inguinal region, collection of fluid and gas seen within the anterior abdominal wall, measuri ng up to 8.9 x 9.8 x 4.4 cm, containing an air-fluid level with some contrast opacification. No maru r tract between the collection and bowel lumen. A small tract extending from the posterolateral aspe ct of the collection toward the more caudal surgical tract along the course of the inferior surgical drain towards the subcutaneous right inguinal region. Bilateral layering small pleural effusions not ed. Assessment And Plan: The patient is status post laparoscopy, lysis of adhesion, and hernia repair fo r strangulated right inguinal hernia, who came back to hospital with abdominal discomfort to the righ t lower quadrant. CT scan is showing that the patient has multifocal area of abscess collection and small bowel obstruction. Currently on IV antibiotics, including cefoxitin, Cipro, Flagyl, and vancom ycin. We will recommend to either stop cefoxitin, or stop Cipro and Flagyl, and continue cefoxitin a nd vancomycin. Anemia of chronic disease, pyuria, hematuria, severe protein-calorie malnourishment. The patient is currently on TPN. Pending LTAC transfer. We will continue to follow. Monitor the patient closely. No other recommendation. NF/MODL Voice ID: [id number] Report ID: [id number]
[2025-02-03 05:26] LABS: Absolute Basophils 0.1 K/uL (0-0.5); Absolute Eosinophils 0.3 K/uL (0-0.5); Absolute Lymphocytes (CBC) 1.5 K/uL (0.7-4.9); Absolute Monocytes 1.6 K/uL (0.1-1.3); Absolute Neutrophil 5.4 K/uL (1.8-8.0); Eosinophils % 3.6 % (0-4.4); Hematocrit 27.3 % (36.0-45.0); Hemoglobin 9.4 g/dL (12.0-15.0); MCH 31.7 pg (27.0-35.0); MCHC 34.5 g/dL (32.0-36.0); MPV 8.9 fL (7.6-11.3); Monocytes % 18.1 % (3.3-12.3); Neutrophils % 60.3 % (41.7-73.7); Platelets 181 thou/uL (152-406); RBC Red Blood Cell Count 2.97 M/uL (3.86-4.86); Red Cell Distribution Width 13.5 % (12.1-15.2)
[2025-02-03 05:43] LABS: Anion Gap 4.3 mEq/L (5.0-15.0); Potassium 4.3 mEq/L (3.5-5.1)
--- NOTE | 2025-02-03 08:39 | P.PN ---
Subjective Date of Service: 02/03/25 Chief Complaint: Wound dehiscence Subjective: No new changes, No C/O voiced, Tolerating diet, Ambulating, Improving Review of Systems 10-point ROS is otherwise unremarkable Physical Examination - Vital Signs Temperature: 97.2 F Blood Pressure: 130/56 Pulse: 67 Respirations: 11 Pulse Ox (%): 96 - Physical Exam General: Alert, In no apparent distress HEENT: Atraumatic, PERRLA, EOMI Neck: Supple, JVD not distended Respiratory: Clear to auscultation bilaterally, Normal air movement Cardiovascular: Regular rate/rhythm, Normal S1 S2 Gastrointestinal: Normal bowel sounds, No tenderness Musculoskeletal: No tenderness Integumentary: No rashes Neurological: Normal speech, Normal tone, Normal affect Lymphatics: No axilla or inguinal lymphadenopathy - Studies Laboratory Data (last 24 hrs) 02/03/25 02/03/25 02/03/25 12:00 05:00 05:00 WBC 9.00 Hgb 9.4 L Hct 27.3 L Plt Count 181 Sodium Cancelled 139 Potassium Cancelled 4.3 D BUN Cancelled 21 H Creatinine Cancelled 0.53 L Glucose Cancelled 116 H 02/02/25 05:15 WBC Hgb Hct Plt Count Sodium 141 Potassium 3.7 BUN 21 H Creatinine 0.58 Glucose 152 H Microbiology Data (last 24 hrs): 01/29/25 00:15 Blood - Blood Aerobic Blood Culture - Final No growth in 5 days. 01/29/25 00:15 Blood - Blood Anaerobic Blood Culture - Final 01/28/25 23:59 Blood - Blood Aerobic Blood Culture - Final No growth in 5 days. 01/28/25 23:59 Blood - Blood Anaerobic Blood Culture - Final No growth in 5 days. Medications List Reviewed: Yes Assessment And Plan - Current Problems (Diagnosis) (1) Sinus arrhythmia Current Visit: Yes Status: Acute Plan: EKG reviewed and shows sinus rhythm with sinus arrhythmia Continue IV metoprolol 2.5 mg q6 hours if patient able to take PO then start Lopressor 25 mg po BID Continue to monitor on tele get echo (2) Swelling of lower extremity Current Visit: Yes Status: Acute Plan: continue lasix, continue to monitor input and output and electrolytes get echo (3) Hypertension Current Visit: Yes Status: Acute Plan: as above.
--- NOTE | 2025-02-03 12:00 | P.PN ---
Subjective Date of Service: 02/03/25 Chief Complaint: Wound dehiscence Subjective: No chest pain or shortness of breath. No nausea or vomiting. c/o abdominal pain. No obvious bleeding. Looks comfortable in the bed. Objective: General appearance: Alert and comfortable CVS: Normal S1 and S2 Lungs: Clear to auscultation bilaterally Abdomen: Soft, BS+, dresing present, tenderness present Extremities: mild lower extremity edema Physical Examination - Vital Signs Temperature: 97.2 F Blood Pressure: 130/56 Pulse: 67 Respirations: 11 Pulse Ox (%): 96 - Studies Laboratory Data (last 24 hrs) 02/03/25 02/03/25 02/03/25 12:00 05:00 05:00 WBC 9.00 Hgb 9.4 L Hct 27.3 L Plt Count 181 Sodium Cancelled 139 Potassium Cancelled 4.3 D BUN Cancelled 21 H Creatinine Cancelled 0.53 L Glucose Cancelled 116 H Microbiology Data (last 24 hrs): 01/29/25 00:15 Blood - Blood Aerobic Blood Culture - Final No growth in 5 days. 01/29/25 00:15 Blood - Blood Anaerobic Blood Culture - Final 01/28/25 23:59 Blood - Blood Aerobic Blood Culture - Final No growth in 5 days. 01/28/25 23:59 Blood - Blood Anaerobic Blood Culture - Final No growth in 5 days. Medications List Reviewed: Yes Assessment And Plan - Plan This is a 84-year-old female s/p laparoscopic lysis of adhesion and hernia repair for strangulated right inguinal hernia. She now returns to the hospital complaining of abdominal pain and purulent drainage out of the right lower quadrant. CT abdomen pelvis at an outside hospital revealed multifocal areas of abscess collection, and possible small bowel obstruction. Patient had a WBC of more than 12,000 at the outside hospital. She received ciprofloxacin and Flagyl prior to arrival. 1. Postoperative intra-abdominal abscess: s/p surgery and drainage of the abscess, cultures e.coli, staph and kayla - Currently on TPN, IV antibiotics/ antifungals, surgery and ID is following -Started on octreotide to decrease small bowel output, 2. Small bowel obstruction: s/p surgery, repeat CT scan 02/01 showed stable abscess 3. Abdominal aortic aneurysm: Follow-up with PCP 4. COPD: Continue inhalers/nebs 5. Hypertension: schedule IV metoprolol 6. Osteoarthritis: As needed pain medications 7. GERD: cont PPI 8. Acute blood loss anemia: Monitor closely 9. Pneumonia versus CHF: Could be volume overload, stopped fluids, continue Lasix, already on IV antibiotics, check lower extremity doppler. -echo normal EF, cardiology following Plan discussed with patient, discussed with nursing staff. Discussed with surgical team, need LTACH.
--- NOTE | 2025-02-03 13:58 | PN ---
Date of Progress Note: 02/03/2025 Subjective: The patient is awake, alert. Pain is much better controlled. 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 Objective: Vital Signs: Stable. She is afebrile. Her Is and Os reviewed. One of the drain in the right lower quadrant put out 230 cc, the other one 25 cc in the last shift. Abdomen: Benign. Dressing is clean, dry, intact and wound is clean. Per the nursing staff, there i s no sign of infection. Laboratory Data: Shows normal white count and there is no left shift. Chemistry is pending for afshan dylon. 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 Recommendations: Continue TPN, antibiotics as ordered by Infectious Disease and octreotide. Dischar ge planning is in place. The patient is being evaluated for LTAC. I will be out of town for the nex t [address] Pringle will cover me should there be any need for surgical evaluation of the patient . At this time patient is surgically very stable. The patient just needs medical management. I allan l discuss this with the hospitalist team. /MODL Voice ID: [id number] Report ID: [id number]
--- NOTE | 2025-02-03 14:19 | P.PN ---
Date of Service: 02/03/25 Subjective: Pt seen at bedside. Denied chest pain or shortness of breath, N&V. Does report abdominal cramping. Pt not in distress Objective: General appearance: Alert and comfortable CVS: Normal S1 and S2 Lungs: Clear to auscultation bilaterally Abdomen: Soft, BS+, surgical dressing soiled. Large brownish drainage on incision site. DENNIS drain noted. tenderness to abdominal area Extremities: mild lower extremity edema Temp Pulse Resp BP Pulse Ox 97.2 F 67 11 L 130/56 L 96 02/03/25 12:00 02/03/25 12:00 02/03/25 12:00 02/03/25 12:00 02/03/25 12:00 - Studies Laboratory Data (last 24 hrs) 02/03/25 02/03/25 02/03/25 12:00 05:00 05:00 WBC 9.00 Hgb 9.4 L Hct 27.3 L Plt Count 181 Sodium Cancelled 139 Potassium Cancelled 4.3 D BUN Cancelled 21 H Creatinine Cancelled 0.53 L Glucose Cancelled 116 H Microbiology Data (last 24 hrs): 01/29/25 00:15 Blood - Blood Aerobic Blood Culture - Final No growth in 5 days. 01/29/25 00:15 Blood - Blood Anaerobic Blood Culture - Final 01/28/25 23:59 Blood - Blood Aerobic Blood Culture - Final No growth in 5 days. 01/28/25 23:59 Blood - Blood Anaerobic Blood Culture - Final No growth in [address] abdomen and pelvis 02/01/25: CT abdomen and pelvis done yesterday showed the patient has postsurgical changes centered on the right inguinal region, collection of fluid and gas seen within the anterior abdominal wall, measuring up to 8.9 x 9.8 x 4.4 cm, containing an air-fluid level with some contrast opacification. No clear tract between the collection and bowel lumen. A small tract extending from the posterolateral aspect of the collection toward the more caudal surgical tract along the course of the inferior surgical drain towards the subcutaneous right inguinal region. Bilateral layering small pleural effusions noted. 01/29/25: Tissue right groin culture grew E coli, Staph Aureus and María Albican Assessment And Plan 1. Postoperative intra-abdominal abscess: s/p surgery and drainage of the abscess, cultures e.coli, staph and maría 2. Small bowel obstruction 3. Abdominal aortic aneurysm 4. COPD 5. Hypertension 6. anemia of chronic disease 7. severe protein calories malnourishment 8. PNA vs CHF CT scan is showing that the patient has multifocal area of abscess collection and small bowel obstruction. Pt's is tx with Ciprofloxacin, Flagyl, and Micafungin blood culture negative urine culture no growth monitor WBC and fever trend surgeon aware of drainage to incision site case round and in agreement with Dr barahona
[2025-02-04 05:19] LABS: Absolute Eosinophils 0.3 K/uL (0-0.5); Absolute Lymphocytes (CBC) 1.6 K/uL (0.7-4.9); Absolute Monocytes 1.3 K/uL (0.1-1.3); Absolute Neutrophil 5.6 K/uL (1.8-8.0); Basophils % 0.6 % (0-1.3); Eosinophils % 3.9 % (0-4.4); Hematocrit 26.4 % (36.0-45.0); Hemoglobin 8.9 g/dL (12.0-15.0); Lymphocytes % 17.7 % (15.3-44.8); MCH 31.2 pg (27.0-35.0); MCHC 33.6 g/dL (32.0-36.0); MCV 92.8 fL (80-100); MPV 8.6 fL (7.6-11.3); Neutrophils % 62.8 % (41.7-73.7); Platelets 142 thou/uL (152-406); RBC Red Blood Cell Count 2.85 M/uL (3.86-4.86); Red Cell Distribution Width 13.4 % (12.1-15.2)
--- NOTE | 2025-02-04 11:06 | P.PN ---
Subjective Date of Service: 02/04/25 Chief Complaint: Wound dehiscence Subjective: No new changes, No C/O voiced, Tolerating diet, Ambulating, Improving Review of Systems 10-point ROS is otherwise unremarkable Physical Examination - Vital Signs Temperature: 97.1 F Blood Pressure: 132/53 Pulse: 70 Respirations: 15 Pulse Ox (%): 93 - Physical Exam General: Alert, In no apparent distress HEENT: Atraumatic, PERRLA, EOMI Neck: Supple, JVD not distended Respiratory: Clear to auscultation bilaterally, Normal air movement Cardiovascular: Regular rate/rhythm, Normal S1 S2 Gastrointestinal: Normal bowel sounds, No tenderness Musculoskeletal: No tenderness Integumentary: No rashes Neurological: Normal speech, Normal tone, Normal affect Lymphatics: No axilla or inguinal lymphadenopathy - Studies Laboratory Data (last 24 hrs) 02/04/25 02/04/25 04:50 04:50 WBC 8.90 Hgb 8.9 L Hct 26.4 L Plt Count 142 L Sodium 139 Potassium 4.0 BUN 20 H Creatinine 0.47 L Glucose 138 H Medications List Reviewed: Yes Assessment And Plan - Current Problems (Diagnosis) (1) Sinus arrhythmia Current Visit: Yes Status: Acute Plan: EKG reviewed and shows sinus rhythm with sinus arrhythmia Continue IV metoprolol 2.5 mg q6 hours if patient able to take PO then start Lopressor 25 mg po BID Continue to monitor on tele (2) Swelling of lower extremity Current Visit: Yes Status: Acute Plan: continue lasix, continue to monitor input and output and electrolytes Echo shows normal LV systolic function and fabian motion (3) Hypertension Current Visit: Yes Status: Acute Plan: as above.
--- NOTE | 2025-02-04 12:58 | P.PN ---
Subjective Date of Service: 02/04/25 Chief Complaint: Wound dehiscence Subjective: No chest pain or shortness of breath. No nausea or vomiting. abdominal pain controlled. No obvious bleeding. Looks comfortable in the bed. Objective: General appearance: Alert and comfortable CVS: Normal S1 and S2 Lungs: Clear to auscultation bilaterally Abdomen: Soft, BS+, dresing present, tenderness present Extremities: mild lower extremity edema Physical Examination - Vital Signs Temperature: 97.1 F Blood Pressure: 132/53 Pulse: 70 Respirations: 15 Pulse Ox (%): 93 - Studies Laboratory Data (last 24 hrs) 02/04/25 02/04/25 04:50 04:50 WBC 8.90 Hgb 8.9 L Hct 26.4 L Plt Count 142 L Sodium 139 Potassium 4.0 BUN 20 H Creatinine 0.47 L Glucose 138 H Medications List Reviewed: Yes Assessment And Plan - Plan This is a 84-year-old female s/p laparoscopic lysis of adhesion and hernia repair for strangulated right inguinal hernia. She now returns to the hospital complaining of abdominal pain and purulent drainage out of the right lower quadrant. CT abdomen pelvis at an outside hospital revealed multifocal areas of abscess collection, and possible small bowel obstruction. Patient had a WBC of more than 12,000 at the outside hospital. She received ciprofloxacin and Flagyl prior to arrival. 1. Postoperative intra-abdominal abscess: s/p surgery and drainage of the abscess, cultures e.coli, staph and kayla - Currently on TPN, IV antibiotics/ antifungals, surgery and ID is following - on octreotide to decrease small bowel output, 2. Small bowel obstruction: s/p surgery, repeat CT scan 02/01 showed stable abscess 3. Abdominal aortic aneurysm: Follow-up with PCP 4. COPD: Continue inhalers/nebs 5. Hypertension: scheduled IV metoprolol 6. Osteoarthritis: As needed pain medications 7. GERD: cont PPI 8. Acute blood loss anemia: Monitor closely 9. Pneumonia versus CHF: Could be volume overload, stopped fluids, continue Lasix, already on IV antibiotics, lower extremity doppler neg. -echo normal EF, cardiology following 10. Thrombocytopenia: Probably due to acute illness and antibiotics, monitor closely, consider to hold Lovenox tomorrow if counts drops more. Plan discussed with patient, discussed with nursing staff. Need LTACH.
[2025-02-04] MEDS: NA CHLORIDE 0.9% 500 ML ONE (20:42)
--- NOTE | 2025-02-04 21:25 | PN ---
Subjective: The patient's family is by the bedside. The patient denies any discomfort. Able to nabor athe without any problem on room air. Objective: Vital Signs: Temperature 97, pulse 62, respirations 18, blood pressure 111/52. Lungs: Basal crackles. Heart: S1, S2. Regular. Abdomen: Bowel sounds present. Surgical incisions noted. No redness, erythematous changes, and sma ll amount of yellow discharge noted at the inguinal site. Laboratory Data: Shows WBC 8.9, hemoglobin 8.9, platelets 142. BUN of 20, creatinine 0.4. Right gr oin cultures are growing E coli, Staphylococcus aureus, and María albicans. The patient is current ly being treated with Cipro, Flagyl, and micafungin. Assessment And Plan: 1. Status post laparoscopic lysis of admission and hernia repair for strangulated right hernia. The patient is currently on TPN with some abdominal discomfort and purulent drainage. No bowel movement. 2. Abdominal abscess noted on CT scan. 3. Small bowel obstruction, status post surgical intervention. 4. Chronic obstructive pulmonary disease. 5. Thrombocytopenia. 6. Anemia of chronic disease. 7. Severe protein-calorie malnourishment. 8. Continue supportive care and wound care as per surgical team. Continue IV antibiotic, pending long-term acute care. We will follow the patient as needed. NF/MODL Voice ID: [id number] Report ID: [id number]
[2025-02-05 05:20] LABS: Absolute Basophils 0.1 K/uL (0-0.5); Absolute Eosinophils 0.5 K/uL (0-0.5); Absolute Lymphocytes (CBC) 1.4 K/uL (0.7-4.9); Absolute Monocytes 1.1 K/uL (0.1-1.3); Absolute Neutrophil 6.7 K/uL (1.8-8.0); Eosinophils % 5.2 % (0-4.4); Hematocrit 26.5 % (36.0-45.0); Hemoglobin 8.8 g/dL (12.0-15.0); Lymphocytes % 14.4 % (15.3-44.8); MCH 30.9 pg (27.0-35.0); MCHC 33.3 g/dL (32.0-36.0); MCV 92.6 fL (80-100); MPV 8.4 fL (7.6-11.3); Monocytes % 11.3 % (3.3-12.3); Neutrophils % 68.1 % (41.7-73.7); Platelets 131 thou/uL (152-406); RBC Red Blood Cell Count 2.86 M/uL (3.86-4.86); Red Cell Distribution Width 13.5 % (12.1-15.2)
[2025-02-05 05:47] LABS: Anion Gap 6.1 mEq/L (5.0-15.0); Potassium 4.1 mEq/L (3.5-5.1)
[2025-02-05 06:17] VITALS: BMI 28.3
--- NOTE | 2025-02-05 13:14 | P.PN ---
Subjective Date of Service: 02/05/25 Chief Complaint: Wound dehiscence Subjective: No new changes (no acute events overnight) Review of Systems 10-point ROS is otherwise unremarkable Physical Examination - Vital Signs Temperature: 97.1 F Blood Pressure: 124/54 Pulse: 89 Respirations: 14 Pulse Ox (%): 89 - Physical Exam General: Alert, In no apparent distress HEENT: Atraumatic Respiratory: Clear to auscultation bilaterally, Normal air movement Cardiovascular: Regular rate/rhythm, Normal S1 S2 Gastrointestinal: Other (dressing in place) - Studies Laboratory Data (last 24 hrs) 02/05/25 02/05/25 02/05/25 07:02 05:00 05:00 WBC 9.90 Hgb 8.8 L Hct 26.5 L Plt Count 131 L Sodium 140 Potassium 4.1 BUN 21 H Creatinine 0.56 Glucose 151 H Magnesium 1.9 Medications List Reviewed: Yes Assessment And Plan - Current Problems (Diagnosis) (1) Abscess, intra-abdominal, postoperative Current Visit: Yes Status: Acute - Plan 84-year-old female with history of COPD, hypertension, OA, GERD presented with wound dehiscence. Prior to her arrival she had surgery on right inguinal hernia. Postoperative intra-abdominal abscess, status post surgery and drainage of abscess culture shows staph and María Continue TPN ID consultation Small bowel obstruction repeat CAT scan on 02/01 Abdominal aortic aneurysm COPD exacerbation--stable tachycardia --Monitor closely on telemetry --cardiology consultation Started on bronchodilators Oxygen supplementation Hypertension Osteoarthritis GERD Anemia Pneumonia CHF Dispo: evaluation for LTAC vs SNF
--- NOTE | 2025-02-05 20:17 | P.PN ---
Date of Service: 02/05/25 Subjective: Pt seen at bedside. Denied chest pain or shortness of breath, N&V. Does report abdominal cramping. Pt not in distress Objective: General appearance: Alert and comfortable CVS: Normal S1 and S2 Lungs: Clear to auscultation bilaterally Abdomen: Soft, BS+, surgical dressing clean. DENNIS drain noted. tenderness to abdominal area Extremities: mild lower extremity edema Temp Pulse Resp BP Pulse Ox 97.2 F 67 14 124/74 91 02/05/25 16:00 02/05/25 17:51 02/05/25 16:00 02/05/25 17:51 02/05/25 16:00 - Studies Laboratory Data (last 24 hrs) wbc:9.9, Hgb 8.8, platelet 131, bun 21, cr 0.56 Microbiology Data (last 24 hrs): Microbiology 01/29/25 00:15 Blood - Blood Aerobic Blood Culture - Final No growth in 5 days. 01/29/25 00:15 Blood - Blood Anaerobic Blood Culture - Final 01/28/25 23:59 Blood - Blood Aerobic Blood Culture - Final No growth in 5 days. 01/28/25 23:59 Blood - Blood Anaerobic Blood Culture - Final No growth in 5 days. 01/29/25 07:25 Tissue - Right Groin Gram Stain - Final 01/29/25 07:25 Tissue - Right Groin Culture & Sensitivity - Final Escherichia Coli Staph Aureus María Albicans 01/30/25 05:41 Clean Catch Urine [place] Count - Final No growth. 01/30/25 05:41 Clean Catch Urine - Final No growth. CT abdomen and pelvis 02/01/25: CT abdomen and pelvis done yesterday showed the patient has postsurgical changes centered on the right inguinal region, collection of fluid and gas seen within the anterior abdominal wall, measuring up to 8.9 x 9.8 x 4.4 cm, containing an air-fluid level with some contrast opacification. No clear tract between the collection and bowel lumen. A small tract extending from the posterolateral aspect of the collection toward the more caudal surgical tract along the course of the inferior surgical drain towards the subcutaneous right inguinal region. Bilateral layering small pleural effusions noted. Assessment And Plan 1. Postoperative intra-abdominal abscess: s/p surgery and drainage of the abscess, cultures e.coli, staph and maría 2. Small bowel obstruction 3. Abdominal aortic aneurysm 4. COPD 5. Hypertension 6. anemia of chronic disease 7. severe protein calories malnourishment 8. PNA vs CHF CT scan is showing that the patient has multifocal area of abscess collection and small bowel obstruction. Pt's is tx with Ciprofloxacin, Flagyl, and Micafungin. continue abx for a total of 4 weeks. tentative stop date march 02 blood culture negative urine culture no growth monitor WBC and fever trend case round and in agreement with Dr barahona
[2025-02-06 09:12] LABS: Absolute Basophils 0.1 K/uL (0-0.5); Absolute Eosinophils 0.3 K/uL (0-0.5); Absolute Lymphocytes (CBC) 1.2 K/uL (0.7-4.9); Absolute Monocytes 0.9 K/uL (0.1-1.3); Absolute Neutrophil 6.9 K/uL (1.8-8.0); Basophils % 0.7 % (0-1.3); Eosinophils % 3.5 % (0-4.4); Hematocrit 28.2 % (36.0-45.0); Hemoglobin 9.3 g/dL (12.0-15.0); Lymphocytes % 12.4 % (15.3-44.8); MCH 34.9 pg (27.0-35.0); MCHC 33.1 g/dL (32.0-36.0); MCV 105.5 fL (80-100); MPV 8.9 fL (7.6-11.3); Monocytes % 9.4 % (3.3-12.3); Nucleated Red Blood Cells % 0.2 % (0-0); Platelets 134 thou/uL (152-406); RBC Red Blood Cell Count 2.68 M/uL (3.86-4.86); Red Cell Distribution Width 15.5 % (12.1-15.2)
--- NOTE | 2025-02-06 09:59 | P.PN ---
Subjective Date of Service: 02/06/25 Chief Complaint: Wound dehiscence Subjective: No new changes daughter at bedside tolerating TPN PT to be consulted Review of Systems 10-point ROS is otherwise unremarkable Physical Examination - Vital Signs Temperature: 97.5 F Blood Pressure: 149/73 Pulse: 70 Respirations: 18 Pulse Ox (%): 91 - Physical Exam General: Alert, Oriented x3 HEENT: Atraumatic, Normocephalic Respiratory: Normal air movement Cardiovascular: No edema Gastrointestinal: Hypoactive, Soft and benign, Other Musculoskeletal: No swelling Integumentary: No rashes - Studies Laboratory Data (last 24 hrs) 02/06/25 09:04 WBC 9.30 Hgb 9.3 L Hct 28.2 L Plt Count 134 L Medications List Reviewed: Yes Assessment And Plan - Current Problems (Diagnosis) (1) Abscess, intra-abdominal, postoperative Current Visit: Yes Status: Acute - Plan 84-year-old female with history of COPD, hypertension, OA, GERD presented with wound dehiscence. Prior to her arrival she had surgery on right inguinal hernia. Postoperative intra-abdominal abscess, status post surgery and drainage of abscess culture shows staph and María --Continue TPN --ID consultation, appreciate recs -- Ciprofloxacin, Flagyl, and Micafungin. continue abx for a total of 4 weeks. tentative stop date march 02 -- PT consult Small bowel obstruction repeat CAT scan on 02/01 Abdominal aortic aneurysm COPD exacerbation--stable tachycardia --Monitor closely on telemetry --cardiology consultation Started on bronchodilators Oxygen supplementation Hypertension Osteoarthritis GERD Anemia --chronic conditions monitored and addressed Dispo: evaluation for LTAC vs SNF
[2025-02-06 10:29] LABS: Anisocytosis 1+; Blood Morphology Comment NOTED (NOT SEEN); Macrocytosis 1+; White Blood Cell Scan OK (OK)
[2025-02-06 10:45] LABS: Platelet Estimate ADEQ
--- NOTE | 2025-02-06 13:21 | PN ---
Date of Progress Note: 02/06/2025 Diagnosis: Fistula, status post surgical intervention. Subjective: Dr. Stovall is out of town today. The staff had a question about the DENNIS care. Patient shila beckford managed to come down from the ICU to the floor and I was here around covering Dr. Stovall and marilu y the orders. The WBC count is 9.3, with hemoglobin of 9.3. Objective: General: The patient is awake and alert. No distress. Abdomen: Soft and depressible. She is very hungry. The DENNIS was checked, still draining, and instead of flushing, I just do not want them to flush, I wanted just to "milk the DENNIS drain". So I explained the nursing staff how to do it u ntil Dr. Stovall comes back and clarify the orders. When I discussed the case with Dr. Stovall, the plan was to continue parenteral nutrition on to that a low volume fistula closed. The patient was fully explained. All the questions were answered to her satisfaction. She really preferred to eat, but I explained to her the pros and cons of making that decision. I asked her to be compliant with treatm ent. The patient is stable at this moment. HM/MODL Voice ID: [id number] Report ID: [id number]
--- NOTE | 2025-02-07 10:16 | P.PN ---
Date of Service: 02/07/25 Subjective Chart has been reviewed; events of last 24 hours again noted. Admitted for intra-abdominal abscess; patient also with enterocutaneous fistula. Decision was made to keep patient n.p.o. and do TPN. Patient is oxygenating well and cardiac status is stable. Patient ambulating. Will monitor over the next 24 hours and plan to DC Rocha, telemetry, and O2 in a.m. if patient is doing well. 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 continue abx and antifungal for a total of 4 weeks. tentative stop date march 02 --PT consult (2) Abdominal aortic aneurysm Current Visit: Yes Status: Chronic -- Stable (3) COPD Current Visit: Yes Status: Chronic COPD exacerbation--stable (4) History of tachyarrhythmia Current Visit: Yes Status: Acute Heart rate has been stable; will DC telemetry per patient request (5) Hypertension Current Visit: Yes Status: Chronic Blood pressure stable (6) Osteoarthritis Current Visit: Yes Status: Chronic Stable (7) GERD/anemia Current Visit: Yes Status: Chronic Stable Discharge planning: *evaluation for LTAC; [facility]
--- NOTE | 2025-02-08 09:28 | P.PN ---
Date of Service: 02/08/25 Subjective Chart has been reviewed; events of last 24 hours again noted. Admitted for intra-abdominal abscess; patient also with enterocutaneous fistula. Decision was made to keep patient n.p.o. and do TPN. Patient is oxygenating well and cardiac status is stable. Patient ambulating. Will go ahead and DC Rocha, telemetry, and O2. Awaiting for acceptance to LTAC at [facility]; surgery has okayed ice chips. 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 continue abx and antifungal for a total of 4 weeks. tentative stop date march 02 --PT consult (2) Abdominal aortic aneurysm Current Visit: Yes Status: Chronic -- Stable (3) COPD Current Visit: Yes Status: Chronic COPD exacerbation--stable (4) History of tachyarrhythmia Current Visit: Yes Status: Acute Heart rate has been stable; will DC telemetry per patient request (5) Hypertension Current Visit: Yes Status: Chronic Blood pressure stable (6) Osteoarthritis Current Visit: Yes Status: Chronic Stable (7) GERD/anemia Current Visit: Yes Status: Chronic Stable Discharge planning: *evaluation for LTAC; [facility]
--- NOTE | 2025-02-08 15:31 | P.PN ---
Date of Service: 02/08/25 Subjective: Pt seen at bedside. Denied chest pain or shortness of breath, N&V. Pt is not in distress Objective: General appearance: Alert and comfortable neuro: alert and oriented x 3. normal speech CVS: Normal S1 and S2 Lungs: Clear to auscultation bilaterally Abdomen: Soft, BS+, surgical dressing clean. DENNIS drain noted with dark brown liquid. Extremities: mild lower extremity edema Temp Pulse Resp BP Pulse Ox 97.2 F 67 14 124/74 91 02/05/25 16:00 02/05/25 17:51 02/05/25 16:00 02/05/25 17:51 02/05/25 16:00 - Studies Laboratory Data (last 24 hrs) wbc:9.3, Hgb 9.3, platelet 134, bun 21, cr 0.56 Microbiology Data (last 24 hrs): Microbiology 01/29/25 00:15 Blood - Blood Aerobic Blood Culture - Final No growth in 5 days. 01/29/25 00:15 Blood - Blood Anaerobic Blood Culture - Final 01/28/25 23:59 Blood - Blood Aerobic Blood Culture - Final No growth in 5 days. 01/28/25 23:59 Blood - Blood Anaerobic Blood Culture - Final No growth in 5 days. 01/29/25 07:25 Tissue - Right Groin Gram Stain - Final 01/29/25 07:25 Tissue - Right Groin Culture & Sensitivity - Final Escherichia Coli Staph Aureus María Albicans 01/30/25 05:41 Clean Catch Urine [place] Count - Final No growth. 01/30/25 05:41 Clean Catch Urine - Final No growth. CT abdomen and pelvis 02/01/25: CT abdomen and pelvis done yesterday showed the patient has postsurgical changes centered on the right inguinal region, collection of fluid and gas seen within the anterior abdominal wall, measuring up to 8.9 x 9.8 x 4.4 cm, containing an air-fluid level with some contrast opacification. No clear tract between the collection and bowel lumen. A small tract extending from the posterolateral aspect of the collection toward the more caudal surgical tract along the course of the inferior surgical drain towards the subcutaneous right inguinal region. Bilateral layering small pleural effusions noted. Assessment And Plan 1. Postoperative intra-abdominal abscess: s/p surgery and drainage of the abscess, cultures e.coli, staph and maría 2. Small bowel obstruction 3. Abdominal aortic aneurysm 4. COPD 5. Hypertension 6. anemia of chronic disease 7. severe protein calories malnourishment 8. PNA vs CHF CT scan is showing that the patient has multifocal area of abscess collection and small bowel obstruction. Right groin growing E coli, Staph Aureus and María Albicans. Pt's is treated with Ciprofloxacin, Flagyl, and Micafungin. continue abx for a total of 4 weeks. tentative stop date march 02 blood culture negative urine culture no growth monitor WBC and fever trend case round and in agreement with Dr barahona
[2025-02-08] MEDS: DULERA 200/5 (MOMETASONE/FORMOTEROL) INHALER IH SCH (21:00)
[2025-02-09] MEDS: NA CHLORIDE 0.9% 1,000 ML ONE (09:36)
--- NOTE | 2025-02-09 12:50 | P.PN ---
Date of Service: 02/09/25 Subjective: Wants to eat. No new complaints. No issues with voiding. DENNIS drain in place and noted drainage. 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 continue abx and antifungal for a total of 4 weeks. tentative stop date march 02 --PT consult (2) Abdominal aortic aneurysm Current Visit: Yes Status: Chronic -- Stable (3) COPD Current Visit: Yes Status: Chronic COPD exacerbation--stable (4) History of tachyarrhythmia Current Visit: Yes Status: Acute Heart rate has been stable; will DC telemetry per patient request (5) Hypertension Current Visit: Yes Status: Chronic Blood pressure stable (6) Osteoarthritis Current Visit: Yes Status: Chronic Stable (7) GERD/anemia Current Visit: Yes Status: Chronic Stable Discharge planning: *evaluation for LTAC; [facility]
--- NOTE | 2025-02-09 20:57 | PN ---
Subjective: The patient is lying in bed. Denies any chest pain. Occasional abdominal discomfort. No shortness of breath, currently on Cipro and Flagyl and micafungin without any complications from i t. Objective: Vital Signs: Temperature 97, pulse 67, respirations 16, blood pressure 118/55. Lungs: Basal crackles. Heart: S1, S2. Regular. Abdomen: Decreased bowel sounds. Otherwise, soft and benign. DENNIS drain is in place. Extremities: No edema. Laboratory Data: Shows WBC 9.3, hemoglobin 9.3, platelets are 134. Chemistry shows BUN of 21, creat inine 0.5. Urinalysis done on 01/30 showed wbc of 20 to 50. Assessment And Plan: 1. Status post intraabdominal abscess and wound dehiscence of right inguinal hernia repair. The christie ent continued to be on TPN, currently being managed with Cipro, Flagyl, and micafungin for funguria. 2. Pyuria. 3. Chronic obstructive pulmonary disease. 4. Small bowel obstruction. 5. Abdominal aortic aneurysm. 6. Anemia of chronic disease. 7. Severe protein-calorie malnourishment. 8. Thrombocytopenia. Continue to monitor for signs of infection with WBC and fever trends. No further recommendations. NF/MODL Voice ID: [id number] Report ID: [id number]
[2025-02-10] MEDS: OCTREOTIDE ACETATE 100 MCG/ML IV SCH (14:58)
--- NOTE | 2025-02-10 15:27 | P.PN ---
Date of Service: 02/10/25 Subjective: Pt seen at bedside.Denied any concern. Denied chest pain or shortness of breath, N&V. Pt is not in distress Objective: General appearance: Alert and comfortable neuro: alert and oriented x 3. normal speech CVS: Normal S1 and S2 Lungs: Clear to auscultation bilaterally Abdomen: Soft, BS+, surgical dressing clean. DENNIS drain noted with dark brown liquid. Extremities: mild lower extremity edema Temp Pulse Resp BP Pulse Ox 98.0 F 70 15 123/58 L 94 02/10/25 12:00 02/10/25 12:00 02/10/25 12:00 02/10/25 12:00 02/10/25 12:00 - Studies Laboratory Data (last 24 hrs) wbc:9.3, Hgb 9.3, platelet 134, bun 21, cr 0.56 Microbiology Data (last 24 hrs): Microbiology 01/29/25 00:15 Blood - Blood Aerobic Blood Culture - Final No growth in 5 days. 01/29/25 00:15 Blood - Blood Anaerobic Blood Culture - Final 01/28/25 23:59 Blood - Blood Aerobic Blood Culture - Final No growth in 5 days. 01/28/25 23:59 Blood - Blood Anaerobic Blood Culture - Final No growth in 5 days. 01/29/25 07:25 Tissue - Right Groin Gram Stain - Final 01/29/25 07:25 Tissue - Right Groin Culture & Sensitivity - Final Escherichia Coli Staph Aureus María Albicans 01/30/25 05:41 Clean Catch Urine [place] Count - Final No growth. 01/30/25 05:41 Clean Catch Urine - Final No growth. CT abdomen and pelvis 02/01/25: CT abdomen and pelvis done yesterday showed the patient has postsurgical changes centered on the right inguinal region, collection of fluid and gas seen within the anterior abdominal wall, measuring up to 8.9 x 9.8 x 4.4 cm, containing an air-fluid level with some contrast opacification. No clear tract between the collection and bowel lumen. A small tract extending from the posterolateral aspect of the collection toward the more caudal surgical tract along the course of the inferior surgical drain towards the subcutaneous right inguinal region. Bilateral layering small pleural effusions noted. Assessment And Plan 1. Postoperative intra-abdominal abscess: wound dehiscence of right inguinal hernia repair with secondary enterocutaneous fistula. 2. Small bowel obstruction 3. Abdominal aortic aneurysm 4. COPD 5. Hypertension 6. anemia of chronic disease 7. severe protein calories malnourishment 8. thrombocytopenia CT scan is showing that the patient has multifocal area of abscess collection and small bowel obstruction. Right groin growing E coli, Staph Aureus and María Albicans. Pt's is treated with Ciprofloxacin, Flagyl, and Micafungin. continue abx for a total of 4 weeks. tentative stop date march 02 blood culture negative urine culture no growth monitor WBC and fever trend case round and in agreement with Dr barahona
--- NOTE | 2025-02-10 15:31 | P.PN ---
Date of Service: 02/10/25 Subjective: No new complaints. No issues with voiding. DENNIS drain in place and noted drainage. We discussed giving her bowels rest until surgery clears her Review of systems: 10 point review of systems otherwise negative Physical Examination - Vital Signs reviewed - Physical Exam General: Alert, Oriented x3 Respiratory: Clear bilaterally Cardiovascular: Regular rate and rhythm with no murmurs Gastrointestinal: Hypoactive, Soft and benign, Other; DENNIS drain in place Musculoskeletal: Minimal joint deformity and pain Integumentary: Enterocutaneous fistula on the abdomen Assessment And Plan -Assessment/Plan (1) Abscess, intra-abdominal, postoperative; wound dehiscence of right inguinal hernia repair with secondary enterocutaneous fistula Current Visit: Yes Status: Acute --Continue TPN --Continue octreotide --ID consultation, appreciate recs --Ciprofloxacin, Flagyl, and Micafungin. continue abx and antifungal for a total of 4 weeks. tentative stop date march 02 --PT consult (2) Abdominal aortic aneurysm Current Visit: Yes Status: Chronic -- Stable (3) COPD Current Visit: Yes Status: Chronic COPD exacerbation--stable (4) History of tachyarrhythmia Current Visit: Yes Status: Acute Heart rate has been stable; will DC telemetry per patient request (5) Hypertension Current Visit: Yes Status: Chronic Blood pressure stable (6) Osteoarthritis Current Visit: Yes Status: Chronic Stable (7) GERD/anemia Current Visit: Yes Status: Chronic Stable Discharge planning: Denied for LTAC. Discussed with case management
--- NOTE | 2025-02-10 19:33 | PN ---
Date of Progress Note: 02/10/2025 Subjective: The patient is awake, alert. Feels much better. Had a bowel movement a couple of days ago. She had a small amount of bowel movement, this morning. Objective: Vital Signs: Stable. She is afebrile. Her I's and O's are reviewed. Drain is putting out about 100 per shift. Yesterday, put more out, couple of days prior only had 30 total. There is still some greenish material consistent with bowel contents in the drain. Abdomen: Soft, nondistended, nontender. Wounds are clean, dry, and intact. Laboratory Data: Her white count is normal. H and H are stable. Her electrolytes are within normal limit. Assessment: Enterocutaneous fistula. The patient with multiple surgeries and history of intraabdomi nal abscess and incarcerated/strangulated right inguinal hernia repair. Recommendations: Continue antibiotics and antifungal as ordered, TPN, octreotide. The patient needs more time with IV antibiotics and octreotide. NPO and TPN to allow the best chance of the enterocu taneous fistula to heal on its own. The patient would be a very poor surgical candidate at this time given the amount of scar tissue that was present in the previous surgery. We will discuss the case with the insurance company doctor as they have initially refused to refer this patient to LTAC, which the patient is very appropriate for. So we will re-appeal and talk to their provider tomorrow. In the meantime, I spoke with the hospitalist team. We will get a CT of the abdomen and pelvis to asses s the status of the intraabdominal status of her disease process, at this time, see and make sure lacho t everything is progressing as it should and if she has a collection that needs a percutaneous drainage, we will evaluate and intervene accordingly. /MODL Voice ID: [id number] Report ID: [id number]
[2025-02-11] MEDS: NA CHLORIDE 0.9% 1,000 ML ONE (06:35)
[2025-02-11 08:13] LABS: Absolute Basophils 0.1 K/uL (0-0.5); Absolute Eosinophils 0.4 K/uL (0-0.5); Absolute Lymphocytes (CBC) 1.6 K/uL (0.7-4.9); Absolute Monocytes 0.9 K/uL (0.1-1.3); Basophils % 0.8 % (0-1.3); Eosinophils % 4.2 % (0-4.4); Hematocrit 25.8 % (36.0-45.0); Hemoglobin 8.8 g/dL (12.0-15.0); Lymphocytes % 17.7 % (15.3-44.8); MCH 31.4 pg (27.0-35.0); MCHC 34.3 g/dL (32.0-36.0); MCV 91.6 fL (80-100); MPV 8.7 fL (7.6-11.3); Monocytes % 10.3 % (3.3-12.3); Platelets 306 thou/uL (152-406); RBC Red Blood Cell Count 2.81 M/uL (3.86-4.86); Red Cell Distribution Width 14.1 % (12.1-15.2)
[2025-02-11 08:31] LABS: AST/SGOT 18 U/L (15-37); Albumin 1.8 g/dL (3.4-5.0); Albumin/Globulin Ratio 0.4 (1.1-1.8); Alkaline Phosphatase 118 U/L (45-117); Anion Gap 6.6 mEq/L (5.0-15.0); BUN Blood Urea Nitrogen 19 mg/dL (7-18); Bicarbonate 35 mEq/L (21-32); Bilirubin Total 0.4 mg/dL (0.2-1.0); Globulin 4.1 g/dL (2.3-3.5); Glomerular Filtration Rate 91 ml/min (=/>90); Glucose Level 109 mg/dL (74-106); Potassium 3.6 mEq/L (3.5-5.1); Protein, Total 5.9 g/dL (6.4-8.2); Sodium Level 136 mEq/L (136-145)
[2025-02-11 08:35] LABS: ALT/SGPT < 14 U/L (13-56)
--- NOTE | 2025-02-11 09:24 | RAD REPORT ---
EXAMINATION: CT ABDOMEN AND PELVIS WITHOUT AND WITH CONTRAST CLINICAL INDICATION: Looking for leaks in the fistula TECHNIQUE: CT abdomen and pelvis was performed, before and after the administration of IV contrast, a s per department protocol. Axial, sagittal and coronal reconstructions were obtained. One or more of the following dose reduction techniques were used: Automated exposure control, adjustment of the m A and/or kV according to patient size, and/or iterative reconstruction. Unless otherwise specified, incidental findings do not require dedicated imaging follow-up. COMPARISON: 01/24/2025 FINDINGS: LOWER CHEST: Mild/moderate atelectasis in both lung bases. Small bilateral pleural effusions. LIVER: Mild fatty liver is present. No focal lesion or biliary dilatation is seen. No intra or extr ahepatic biliary tree dilatation suspected. Hyperdense material seen within the gallbladder probably contrast excretion. SPLEEN: Normal size. No focal lesion. PANCREAS: No mass, ductal dilation, or meredith-pancreatic fluid. ADRENALS: Normal; no mass. KIDNEYS AND URETERS: Normal size and contour. No hydronephrosis or hydroureter. URINARY BLADDER: Normal in appearance. No suspicious mass or stone. GASTROINTESTINAL TRACT: Air and contrast collection in the region of the anterior inferior abdominal wall musculature is again noted measuring 5.9 x 3.0 cm, slightly smaller. There is a drain in place within this collection. There is a drain in place in the right inguinal region as well without abnorm al fluid collection seen. There is presumably a connection between this collection and adjacent small bowel. APPENDIX: Appendix not visualized, but no inflammatory changes in region of appendix. LYMPH NODES: No lymphadenopathy. MUSCULOSKELETAL: Grade 2 anterolisthesis L5 on S1. Mild wedge compression deformity of L2. IMPRESSION: There has been mild decrease in the size of the air and contrast collection in the anterior inferior abdominal wall prior study. There continues to be a moderate amount of contrast within this collection. Presumably there is a fistulous connection to the adjacent small bowel. Drainage catheter s in place. Right inguinal region drainage catheter in place without residual fluid collection in the region.
--- NOTE | 2025-02-11 12:13 | P.PN ---
Date of Service: 02/11/25 Subjective: She wants to eat. CT scan done this morning DENNIS drain in place and noted drainage. We discussed giving her bowels rest until surgery clears her Review of systems: 10 point review of systems otherwise negative Physical Examination - Vital Signs reviewed - Physical Exam General: Alert, Oriented x3 Respiratory: Clear bilaterally Cardiovascular: Regular rate and rhythm with no murmurs Gastrointestinal: Hypoactive, Soft and benign, Other; DENNIS drain in place Musculoskeletal: Minimal joint deformity and pain Integumentary: Enterocutaneous fistula on the abdomen Assessment And Plan -Assessment/Plan (1) Abscess, intra-abdominal, postoperative; wound dehiscence of right inguinal hernia repair with secondary enterocutaneous fistula Current Visit: Yes Status: Acute --CT scan with moderate amount of contrast with possible fistulous connection to the adjacent small bowel. Will discuss with Dr. Stovall --Continue TPN --Continue octreotide --ID consultation, appreciate recs --Ciprofloxacin, Flagyl, and Micafungin. continue abx and antifungal for a total of 4 weeks. tentative stop date march 02 --PT consult (2) Abdominal aortic aneurysm Current Visit: Yes Status: Chronic -- Stable (3) COPD Current Visit: Yes Status: Chronic COPD exacerbation--stable (4) History of tachyarrhythmia Current Visit: Yes Status: Acute Heart rate has been stable; will DC telemetry per patient request (5) Hypertension Current Visit: Yes Status: Chronic Blood pressure stable (6) Osteoarthritis Current Visit: Yes Status: Chronic Stable (7) GERD/anemia Current Visit: Yes Status: Chronic Stable Discharge planning: Pending LTAC placement
[2025-02-11] MEDS: KCL 20 MEQ/100 mL IVPB 20 MEQ/100 ML BAG IV SCH (20:11)
--- NOTE | 2025-02-11 20:33 | PN ---
Date of Progress Note: 02/11/2025 Subjective: The patient is awake, alert, feels better. Vital signs stable, afebrile. Objective: Vital Signs: Stable. She is afebrile. Abdomen: Soft, nondistended, nontender. Positive bowel sounds. Her wound is clean, dry, and intact . Laboratory Data: CT of the abdomen and pelvis reviewed. Essentially, the collection is smaller and there is very little drainage in the groin wound area. There is nothing that needs percutaneous drai nage at this time. Her laboratory data reviewed. White count is still normal. Platelet count is normalized and there i s no left shift. Assessment: Enterocutaneous fistula, slowly improving. Recommendations: Continue IV antibiotics, TPN, n.p.o., and octreotide. Await appeal to her [employer] regarding the patient's transfer to LTAC. Paperwork has been signed. We are awaiting the response. Plan of care discussed in detail with the patient and the family. /MODL Voice ID: [id number] Report ID: [id number]
--- NOTE | 2025-02-11 22:34 | PN ---
Subjective: The patient is lying in bed. No new acute event. Family by the bedside. Had a small b owel movement. Objective: Vital Signs: Temperature 97, pulse 66, respirations 16, blood pressure 123/57. Lungs: Basal crackles. Heart: S1, S2. Regular. Abdomen soft, nontender. Bowel sounds present. DENNIS drains noted. Laboratory Data: Shows WBC 9, hemoglobin 8.8, platelets 306, BUN 19, creatinine 0.5, albumin level i s 1.8. CT abdomen shows the patient has mild decrease in the size of air and contrast collection in the anterior and inferior abdominal wall compared to prior studies with presumably fistulous connecti on to the adjacent small bowel and drainage catheters noted. Right inguinal region drainage catheter also noted without any residual fluid. Assessment And Plan: 1. Intraabdominal abscess, postoperative wound dehiscence of right inguinal hernia repair with second frantz enterocutaneous fistula. 2. COPD. 3. Anemia of chronic disease. 4. Thrombocytopenia, resolved. 5. Severe protein-calorie malnourishment. 6. Continue current treatment with antibiotics, Cipro and Flagyl. We will follow the patient as need ed. NF/MODL Voice ID: [id number] Report ID: [id number]
[2025-02-12 05:08] LABS: Anion Gap 5.7 mEq/L (5.0-15.0); Potassium 3.7 mEq/L (3.5-5.1)
--- NOTE | 2025-02-12 12:15 | P.PN ---
Date of Service: 02/12/25 Subjective: No new complaints. Vital stable overnight. Denies fevers and chills Review of systems: 10 point review of systems otherwise negative Physical Examination - Vital Signs reviewed - Physical Exam General: Alert, Oriented x3 Respiratory: Clear bilaterally Cardiovascular: Regular rate and rhythm with no murmurs Gastrointestinal: Hypoactive, Soft and benign, Other; DENNIS drain in place Musculoskeletal: Minimal joint deformity and pain Integumentary: Enterocutaneous fistula on the abdomen Assessment And Plan -Assessment/Plan (1) Abscess, intra-abdominal, postoperative; wound dehiscence of right inguinal hernia repair with secondary enterocutaneous fistula Current Visit: Yes Status: Acute --CT scan with moderate amount of contrast with possible fistulous connection to the adjacent small bowel. Will discuss with Dr. Stovall --Continue TPN --Continue octreotide --ID consultation, appreciate recs --Ciprofloxacin, Flagyl, and Micafungin. continue abx and antifungal for a total of 4 weeks. tentative stop date march 02 --PT consult (2) Abdominal aortic aneurysm Current Visit: Yes Status: Chronic -- Stable (3) COPD Current Visit: Yes Status: Chronic COPD exacerbation--stable (4) History of tachyarrhythmia Current Visit: Yes Status: Acute Heart rate has been stable; will DC telemetry per patient request (5) Hypertension Current Visit: Yes Status: Chronic Blood pressure stable (6) Osteoarthritis Current Visit: Yes Status: Chronic Stable (7) GERD/anemia Current Visit: Yes Status: Chronic Stable Discharge planning: Pending LTAC placement
[2025-02-12] MEDS: HYDROMORPHONE HCL 1 MG/ML INJ IV PRN (19:11)
--- NOTE | 2025-02-12 21:43 | P.PN ---
Date of Service: 02/05/25 Subjective: Pt seen at bedside.Denied any concern. Denied chest pain or shortness of breath, N&V. Pt is not in distress Objective: General appearance: Alert and comfortable neuro: alert and oriented x 3. normal speech CVS: Normal S1 and S2 Lungs: Clear to auscultation bilaterally Abdomen: Soft, BS+, surgical dressing clean. DENNIS drain noted with dark brown liquid. Extremities: mild lower extremity edema Temp Pulse Resp BP Pulse Ox 98.0 F 65 17 116/56 L 96 02/12/25 16:00 02/12/25 16:00 02/12/25 19:11 02/12/25 16:00 02/12/25 19:11 wbc:9, Hgb 8.8, platelet 306, bun 19, cr 0.62 Microbiology Data (last 24 hrs): Microbiology 01/29/25 00:15 Blood - Blood Aerobic Blood Culture - Final No growth in 5 days. 01/29/25 00:15 Blood - Blood Anaerobic Blood Culture - Final 01/28/25 23:59 Blood - Blood Aerobic Blood Culture - Final No growth in 5 days. 01/28/25 23:59 Blood - Blood Anaerobic Blood Culture - Final No growth in 5 days. 01/29/25 07:25 Tissue - Right Groin Gram Stain - Final 01/29/25 07:25 Tissue - Right Groin Culture & Sensitivity - Final Escherichia Coli Staph Aureus María Albicans 01/30/25 05:41 Clean Catch Urine [place] Count - Final No growth. 01/30/25 05:41 Clean Catch Urine - Final No growth. CT abdomen and pelvis 02/01/25: showed the patient has postsurgical changes centered on the right inguinal region, collection of fluid and gas seen within the anterior abdominal wall, measuring up to 8.9 x 9.8 x 4.4 cm, containing an air-fluid level with some contrast opacification. No clear tract between the collection and bowel lumen. A small tract extending from the posterolateral aspect of the collection toward the more caudal surgical tract along the course of the inferior surgical drain towards the subcutaneous right inguinal region. Bilateral layering small pleural effusions noted. Assessment And Plan 1. Postoperative intra-abdominal abscess: wound dehiscence of right inguinal hernia repair with secondary enterocutaneous fistula. 2. Small bowel obstruction 3. Abdominal aortic aneurysm 4. COPD 5. Hypertension 6. anemia of chronic disease 7. severe protein calories malnourishment 8. thrombocytopenia CT scan is showing that the patient has multifocal area of abscess collection and small bowel obstruction. Right groin growing E coli, Staph Aureus and María Albicans. Pt's is treated with Ciprofloxacin and Flagyl. continue abx for a total of 4 weeks. tentative stop date march 02. Micafungin dc on 02/11/25 blood culture negative urine culture no growth monitor WBC and fever trend case round and in agreement with Dr barahona
--- NOTE | 2025-02-13 11:24 | PN ---
Date of Progress Note: 02/13/2025 Subjective: The patient is awake, alert. No new complaints. Objective: Vital Signs: Stable, afebrile. The patient put out 50 cc of drainage from 1 DENNIS, none fr om the other. Abdomen: Benign. Laboratory Data: Reviewed. Assessment: Enterocutaneous fistula. Recommendation: Continue antibiotics, TPN, and octreotide. The patient is awaiting appeal from LTAC . Insurance company is to contact us hopefully Saturday. Continue present care. /MODL Voice ID: [id number] Report ID: [id number]
--- NOTE | 2025-02-13 15:34 | PN ---
Subjective: The patient is lying in bed, daughter by the bedside, awaiting to be transferred to long -term acute care. Denies any other problems except feeling slightly depressed. Objective: Vital Signs: Temperature 97.7, pulse 64, respirations 16, blood pressure 133/84. Lungs: Basal crackles. Heart: S1, S2. Regular. Abdomen: Soft, nontender. Bowel sounds present. Extremities: No edema. Laboratory Data: Labs reviewed. Assessment And Plan: 1. Postoperative intra-abdominal abscess, wound dehiscence of right inguinal hernia repair with secon juanito intracutaneous fistula. 2. Small bowel obstruction. 3. Abdominal aortic aneurysm. 4. Chronic obstructive pulmonary disease. 5. Hypertension. 6. Anemia of chronic disease. 7. Moderate protein-calorie malnourishment. 8. Thrombocytopenia, improved. Continue current antibiotics with Flagyl and Cipro. Continue TPN. We will continue to monitor the p atient's signs of infection with WBC and fever trends. NF/MODL Voice ID: [id number] Report ID: [id number]
[2025-02-13] MEDS: ROPINIROLE HCL 1 MG TAB PO SCH (23:43)
[2025-02-14] MEDS ORDERED: PROPRANOLOL HCL 60 MG SA CAP PO SCH (08:00)
[2025-02-14 08:08] LABS: Anion Gap 6.5 mEq/L (5.0-15.0); Magnesium 1.8 mg/dL (1.6-2.4); Potassium 3.5 mEq/L (3.5-5.1)
[2025-02-14] MEDS: PROPRANOLOL HCL 60 MG SA CAP PO SCH (08:21)
--- NOTE | 2025-02-14 11:33 | P.PN ---
Date of Service: 02/14/25 Subjective: She does not feel well today. States she did not sleep well. vital stable overnight. Denies fevers and chills Review of systems: 10 point review of systems otherwise negative Physical Examination - Vital Signs reviewed - Physical Exam General: Alert, Oriented x3 Respiratory: Clear bilaterally Cardiovascular: Regular rate and rhythm with no murmurs Gastrointestinal: Hypoactive, Soft and benign, Other; DENNIS drain in place Musculoskeletal: Minimal joint deformity and pain Integumentary: Enterocutaneous fistula on the abdomen Assessment And Plan -Assessment/Plan (1) Abscess, intra-abdominal, postoperative; wound dehiscence of right inguinal hernia repair with secondary enterocutaneous fistula Current Visit: Yes Status: Acute --CT scan with moderate amount of contrast with possible fistulous connection to the adjacent small bowel. Will discuss with Dr. Stovall --Continue TPN --Continue octreotide --ID consultation, appreciate recs --Ciprofloxacin, Flagyl, and Micafungin. continue abx and antifungal for a total of 4 weeks. tentative stop date march 02 --PT consult (2) Abdominal aortic aneurysm Current Visit: Yes Status: Chronic -- Stable (3) COPD Current Visit: Yes Status: Chronic COPD exacerbation--stable (4) History of tachyarrhythmia Current Visit: Yes Status: Acute Heart rate has been stable; will DC telemetry per patient request (5) Hypertension Current Visit: Yes Status: Chronic Blood pressure stable (6) Osteoarthritis Current Visit: Yes Status: Chronic Stable (7) GERD/anemia Current Visit: Yes Status: Chronic Stable Discharge planning: Pending LTAC placement
[2025-02-15 04:37] LABS: Absolute Basophils 0.1 K/uL (0-0.5); Absolute Eosinophils 0.1 K/uL (0-0.5); Absolute Lymphocytes (CBC) 1.9 K/uL (0.7-4.9); Absolute Monocytes 0.9 K/uL (0.1-1.3); Absolute Neutrophil 3.7 K/uL (1.8-8.0); Eosinophils % 1.9 % (0-4.4); Hematocrit 25.4 % (36.0-45.0); Hemoglobin 8.7 g/dL (12.0-15.0); Lymphocytes % 27.8 % (15.3-44.8); MCH 31.7 pg (27.0-35.0); MCHC 34.4 g/dL (32.0-36.0); MCV 92.1 fL (80-100); MPV 9.1 fL (7.6-11.3); Monocytes % 13.4 % (3.3-12.3); Neutrophils % 55.9 % (41.7-73.7); Platelets 251 thou/uL (152-406); RBC Red Blood Cell Count 2.75 M/uL (3.86-4.86); Red Cell Distribution Width 14.1 % (12.1-15.2)
[2025-02-15 04:51] LABS: Anion Gap 6.2 mEq/L (5.0-15.0); Potassium 3.2 mEq/L (3.5-5.1)
--- NOTE | 2025-02-15 06:34 | P.PN ---
Date of Service: 02/15/25 Subjective Afebrile, Ambulating with physical therapy LTAC appeal denied Admitted for intra-abdominal abscess; patient also with enterocutaneous fistula. Decision was made to keep patient n.p.o. and do TPN. Physical Examination - Vital Signs reviewed - Physical Exam General: Alert, Oriented x3, afebrile Respiratory: Clear bilaterally, unlabored Cardiovascular: Regular rate and rhythm, Gastrointestinal: Hypoactive, Soft and benign, Musculoskeletal: Minimal joint deformity and pain Integumentary: Enterocutaneous fistula on the abdomen, abdominal dressing, dry, DENNIS drain in place Assessment And Plan -Assessment/Plan (1) Abscess, intra-abdominal, postoperative; wound dehiscence of right inguinal hernia repair with secondary enterocutaneous fistula Current Visit: Yes Status: Acute --CT scan with moderate amount of contrast with possible fistulous connection to the adjacent small bowel. Will discuss with Dr. Stovall --Continue TPN --Continue octreotide --ID consultation, appreciate recs --Ciprofloxacin, Flagyl stop date March 02, micafungin DC'd on 02/11/2025 --blood culture no growth urine culture no growth, --PT consult (2) Abdominal aortic aneurysm Current Visit: Yes Status: Chronic -- Stable (3) COPD Current Visit: Yes Status: Chronic COPD exacerbation--stable (4) History of tachyarrhythmia Current Visit: Yes Status: Acute Heart rate has been stable; will DC telemetry per patient request (5) Hypokalemia Current Visit: Yes Status: Acute Trend electrolytes replace. (6) Hypertension Current Visit: Yes Status: Chronic Blood pressure stable (7) Osteoarthritis Current Visit: Yes Status: Chronic Stable (8) GERD/anemia Current Visit: Yes Status: Chronic Stable Discharge planning: Pending LTAC placement <Cony Woodson - Last Filed: 02/15/25 17:57> Patient was seen and examined. Events of the last 24 hours have been noted. S poke with with [facility] regarding patient's clinical picture after evaluating and examining the patient independently. I performed a substantial part of the MDM during this patient's care today. I personally made or approved the documented management plan and acknowledge its risk of complications. I agree with the findings and documentation provided in the [facility]'s notes. Continue with current plan of care as mentioned above. Awaiting for LTAC placement. <Chito Holcomb - Last Filed: 02/21/25 21:19>
[2025-02-15] MEDS: KCL 20 MEQ/100 mL IVPB 20 MEQ/100 ML BAG IV SCH ×2 (07:00→09:39)
--- NOTE | 2025-02-15 15:25 | P.PN ---
Date of Service: 02/15/25 Subjective: Pt seen at bedside.Denied any concern. Denied chest pain or shortness of breath, N&V. Pt is not in distress Objective: General appearance: Alert and comfortable neuro: alert and oriented x 3. normal speech CVS: Normal S1 and S2 Lungs: Clear to auscultation bilaterally Abdomen: Soft, BS+, surgical dressing clean. DENNIS drain noted with dark brown liquid. Extremities: mild lower extremity edema Temp Pulse Resp BP Pulse Ox 98.1 F 68 16 139/65 94 02/15/25 12:00 02/15/25 12:00 02/15/25 12:00 02/15/25 12:00 02/15/25 12:00 wbc:6.7, Hgb 8.7, platelet 251, bun 21, cr 0.50 Microbiology Data (last 24 hrs): Microbiology 01/29/25 00:15 Blood - Blood Aerobic Blood Culture - Final No growth in 5 days. 01/29/25 00:15 Blood - Blood Anaerobic Blood Culture - Final 01/28/25 23:59 Blood - Blood Aerobic Blood Culture - Final No growth in 5 days. 01/28/25 23:59 Blood - Blood Anaerobic Blood Culture - Final No growth in 5 days. 01/29/25 07:25 Tissue - Right Groin Gram Stain - Final 01/29/25 07:25 Tissue - Right Groin Culture & Sensitivity - Final Escherichia Coli Staph Aureus María Albicans 01/30/25 05:41 Clean Catch Urine [place] Count - Final No growth. 01/30/25 05:41 Clean Catch Urine - Final No growth. CT abdomen and pelvis 02/01/25: showed the patient has postsurgical changes centered on the right inguinal region, collection of fluid and gas seen within the anterior abdominal wall, measuring up to 8.9 x 9.8 x 4.4 cm, containing an air-fluid level with some contrast opacification. No clear tract between the collection and bowel lumen. A small tract extending from the posterolateral aspect of the collection toward the more caudal surgical tract along the course of the inferior surgical drain towards the subcutaneous right inguinal region. Bilateral layering small pleural effusions noted. Assessment And Plan 1. Postoperative intra-abdominal abscess: wound dehiscence of right inguinal hernia repair with secondary enterocutaneous fistula. 2. Small bowel obstruction 3. Abdominal aortic aneurysm 4. COPD 5. Hypertension 6. anemia of chronic disease 7. severe protein calories malnourishment 8. thrombocytopenia (improved) CT scan is showing that the patient has multifocal area of abscess collection and small bowel obstruction. Right groin growing E coli, Staph Aureus and María Albicans. Pt's is treated with Ciprofloxacin and Flagyl. continue abx for a total of 4 weeks. tentative stop date march 02. Micafungin dc on 02/11/25 blood culture negative urine culture no growth monitor WBC and fever trend case round and in agreement with Dr barahona
[2025-02-15] MEDS: MORPHINE 2 MG/ML SYR IV PRN (18:52)
[2025-02-16 06:19] LABS: Absolute Basophils 0.1 K/uL (0-0.5); Absolute Eosinophils 0.3 K/uL (0-0.5); Absolute Lymphocytes (CBC) 1.9 K/uL (0.7-4.9); Absolute Monocytes 0.8 K/uL (0.1-1.3); Absolute Neutrophil 3.7 K/uL (1.8-8.0); Eosinophils % 4.1 % (0-4.4); Hematocrit 28.6 % (36.0-45.0); Hemoglobin 9.8 g/dL (12.0-15.0); Lymphocytes % 27.7 % (15.3-44.8); MCH 31.2 pg (27.0-35.0); MCHC 34.2 g/dL (32.0-36.0); MCV 91.4 fL (80-100); MPV 8.7 fL (7.6-11.3); Monocytes % 12.4 % (3.3-12.3); Neutrophils % 54.8 % (41.7-73.7); Nucleated Red Blood Cells % 0.1 % (0-0); Platelets 303 thou/uL (152-406); RBC Red Blood Cell Count 3.13 M/uL (3.86-4.86); Red Cell Distribution Width 14.4 % (12.1-15.2)
[2025-02-16 07:06] LABS: Potassium 3.7 mEq/L (3.5-5.1)
[2025-02-16 07:07] LABS: Anion Gap 6.7 mEq/L (5.0-15.0); Magnesium 1.9
--- NOTE | 2025-02-16 10:32 | P.PN ---
Date of Service: 02/16/25 Subjective no overnight compliants Admitted for intra-abdominal abscess; patient also with enterocutaneous fistula. Decision was made to keep patient n.p.o. and do TPN. Physical Examination - Vital Signs reviewed - Physical Exam General: Alert, Oriented x3, no acute distress noted Respiratory: Clear bilaterally, equal, unlabored, Cardiovascular: Regular rate and rhythm, Gastrointestinal: Hypoactive, Soft and benign, Musculoskeletal: Minimal joint deformity and pain Integumentary: Enterocutaneous fistula on the abdomen, abdominal dressing, dry, DENNIS drain in place Assessment And Plan -Assessment/Plan (1) Abscess, intra-abdominal, postoperative; wound dehiscence of right inguinal hernia repair with secondary enterocutaneous fistula Current Visit: Yes Status: Acute --CT scan with moderate amount of contrast with possible fistulous connection to the adjacent small bowel. Will discuss with Dr. Stovall --Continue TPN --Continue octreotide --ID consultation, appreciate recs --Ciprofloxacin, Flagyl stop date March 02, micafungin DC'd on 02/11/2025 --blood culture no growth urine culture no growth, --PT consult (2) Abdominal aortic aneurysm Current Visit: Yes Status: Chronic -- Stable (3) COPD Current Visit: Yes Status: Chronic COPD exacerbation--stable (4) History of tachyarrhythmia Current Visit: Yes Status: Acute Heart rate has been stable; will DC telemetry per patient request (5) Hypokalemia Current Visit: Yes Status: Acute Trend electrolytes replace. (6) Hypertension Current Visit: Yes Status: Chronic Blood pressure stable (7) Osteoarthritis Current Visit: Yes Status: Chronic Stable (8) GERD/anemia Current Visit: Yes Status: Chronic Stable Discharge planning: Pending LTAC placement <Cony Woodson - Last Filed: 02/17/25 08:18> Patient was seen and examined. Events of the last 24 hours have been noted. Spoke with with ALYSON regarding patient's clinical picture after evaluating and examining the patient independently. I performed a substantial part of the MDM during this patient's care today. I personally made or approved the documented management plan and acknowledge its risk of complications. I agree with the findings and documentation provided in the ALYSON's notes. Continue with current plan of care as mentioned above. Awaiting for LTAC placement. <Chito Holcomb - Last Filed: 02/21/25 21:20>
--- NOTE | 2025-02-16 13:12 | PN ---
Date of Progress Note: 02/16/2025 Subjective: Patient is awake and alert. No complaints. Vitals stable, afebrile. The patient is pu tting out between 130 to 150 cc of fluid per day on DENNIS #1. DENNIS #2 will be discharged. Objective: Abdomen: Benign. Assessment: Enterocutaneous fistula. Recommendation: Continue present management with TPN, IV antibiotics, and octreotide. Awaiting resu lts of appeal to the insurance company regarding LTAC. /MODL Voice ID: [id number] Report ID: [id number]
--- NOTE | 2025-02-16 19:32 | PN ---
Subjective: Patient is lying in bed. No new acute event. Chart reviewed. Denies any chest pain, a bdominal pain, constipation, or diarrhea. Objective: Vital Signs: Temperature 97, pulse 71, respirations 16, blood pressure 106/68. Lungs: Basal crackles. Heart: S1, S2. Regular. Abdomen: Soft. Bowel sounds present. Extremities: Trace edema. Laboratory Data: Shows WBC 6.7, hemoglobin 9.8, platelets are 303. BUN is 19, creatinine 0.5. Assessment And Plan: 1. Intraabdominal abscess, status post I and D and wound dehiscence, right inguinal hernia repair wit h secondary enterocutaneous fistula. The patient had her one of the DENNIS drains removed today. 2. Small bowel obstruction. 3. Abdominal aortic aneurysm. 4. Chronic obstructive pulmonary disease. 5. Hypertension. 6. Anemia of chronic disease. 7. Moderate protein-calorie malnourishment. 8. Thrombocytopenia, improving. Monitor signs of infection with WBC and fever trends. No other recommendation at this time. NF/MODL Voice ID: [id number] Report ID: [id number]
[2025-02-16] MEDS: PROPRANOLOL HCL 60 MG SA CAP PO SCH (20:08)
[2025-02-17 04:28] VITALS: O2SAT 94
[2025-02-17 06:28] LABS: Absolute Basophils 0.1 K/uL (0-0.5); Absolute Eosinophils 0.2 K/uL (0-0.5); Absolute Lymphocytes (CBC) 2.1 K/uL (0.7-4.9); Absolute Monocytes 0.8 K/uL (0.1-1.3); Absolute Neutrophil 3.2 K/uL (1.8-8.0); Basophils % 1.2 % (0-1.3); Eosinophils % 3.6 % (0-4.4); Hematocrit 28.9 % (36.0-45.0); Hemoglobin 9.8 g/dL (12.0-15.0); Lymphocytes % 32.8 % (15.3-44.8); MCH 30.7 pg (27.0-35.0); MCHC 33.9 g/dL (32.0-36.0); MCV 90.7 fL (80-100); Monocytes % 12.2 % (3.3-12.3); Neutrophils % 50.2 % (41.7-73.7); Platelets 287 thou/uL (152-406); RBC Red Blood Cell Count 3.19 M/uL (3.86-4.86); Red Cell Distribution Width 14.4 % (12.1-15.2)
[2025-02-17 06:41] LABS: Anion Gap 6.7 mEq/L (5.0-15.0); Magnesium 1.8 mg/dL (1.6-2.4); Potassium 3.7 mEq/L (3.5-5.1)
[2025-02-17] MEDS ORDERED: IPRATROPIUM BROM 0.5MG/2.5ML NEB PRN (08:10)
[2025-02-17] MEDS ORDERED: ALBUTEROL 2.5 MG/3 ML NEB SOL NEB PRN (08:11)
--- NOTE | 2025-02-17 08:23 | P.PN ---
Date of Service: 02/17/25 Subjective no complaints, pending appeal LTAC Admitted for intra-abdominal abscess; patient also with enterocutaneous fistula. Decision was made to keep patient n.p.o. and do TPN. Physical Examination - Vital Signs reviewed - Physical Exam General: Alert, Oriented x3, afebrile Respiratory: CTA Cardiovascular: RRR Gastrointestinal: Hypoactive, Soft and benign, Musculoskeletal: Minimal joint deformity and pain Integumentary: Enterocutaneous fistula on the abdomen, abdominal dressing, dry, DENNIS drain in place Assessment And Plan -Assessment/Plan (1) Abscess, intra-abdominal, postoperative; wound dehiscence of right inguinal hernia repair with secondary enterocutaneous fistula Current Visit: Yes Status: Acute --CT scan with moderate amount of contrast with possible fistulous connection to the adjacent small bowel. Will discuss with Dr. Stovall --Continue TPN --Continue octreotide --ID consultation, appreciate recs --Ciprofloxacin, Flagyl stop date March 02, micafungin DC'd on 02/11/2025 --blood culture no growth urine culture no growth, --PT consult (2) Abdominal aortic aneurysm Current Visit: Yes Status: Chronic -- Stable (3) COPD Current Visit: Yes Status: Chronic COPD exacerbation--stable (4) History of tachyarrhythmia Current Visit: Yes Status: Acute Heart rate has been stable; will DC telemetry per patient request (5) Hypokalemia Current Visit: Yes Status: Acute Trend electrolytes replace. (6) Hypertension Current Visit: Yes Status: Chronic Blood pressure stable (7) Osteoarthritis Current Visit: Yes Status: Chronic Stable (8) GERD/anemia Current Visit: Yes Status: Chronic Stable Discharge planning: Pending LTAC placement <Cony Woodson - Last Filed: 02/18/25 17:58> Patient was seen and examined. Events of the last 24 hours have been noted. Spoke with with ALYSON regarding patient's clinical picture after evaluating and examining the patient independently. I performed a substantial part of the MDM during this patient's care today. I personally made or approved the documented management plan and acknowledge its risk of complications. I agree with the findings and documentation provided in the ALYSON's notes. Continue with current plan of care as mentioned above. Awaiting for LTAC placement. <Chito Holcomb - Last Filed: 02/21/25 21:20>
[2025-02-17] MEDS: KCL 20 MEQ/100 mL IVPB 20 MEQ/100 ML BAG IV SCH (08:31)
[2025-02-17] MEDS: MAGNESIUM SULFATE 1 gm IVPB 1 GM/100 ML BAG IV ONE (10:49)
--- NOTE | 2025-02-17 11:08 | PN ---
Date of Progress Note: 02/17/2025 Subjective: The patient is awake, alert. No complaint. The patient is hungry. The patient is pass ing gas, has had 2 small bowel movements. Objective: Vital Signs: Stable. Blood pressure systolic in the 90s, but she is not tachycardic. S he is afebrile. Abdomen: Soft, nondistended, nontender. Positive bowel sounds. Her DENNIS output has decreased to 80 c c in the last 24 hours and it is greenish murky looking. Laboratory Data: Reviewed, essentially unremarkable, no significant change. Assessment: Enterocutaneous fistula. Recommendation: Awaiting insurance appeal process. Continue current medical management. The patien t is clinically stable and doing well. /MODL Voice ID: [id number] Report ID: [id number]
--- NOTE | 2025-02-17 14:42 | P.PN ---
Date of Service: 02/17/25 Subjective: Pt seen at bedside.Denied any concern. Denied chest pain or shortness of breath, N&V. Pt is not in distress Objective: General appearance: Alert and comfortable neuro: alert and oriented x 3. normal speech CVS: Normal S1 and S2 Lungs: Clear to auscultation bilaterally Abdomen: Soft, BS+, surgical dressing clean. DENNIS drain noted with dark brown liquid. Extremities: mild lower extremity edema Temp Pulse Resp BP Pulse Ox 97.6 F 54 18 107/57 L 94 02/17/25 12:00 02/17/25 12:00 02/17/25 12:00 02/17/25 12:00 02/17/25 12:00 wbc:6.4, Hgb 9.8, platelet 287, bun 24, cr 0.56 Microbiology Data (last 24 hrs): Microbiology 01/29/25 00:15 Blood - Blood Aerobic Blood Culture - Final No growth in 5 days. 01/29/25 00:15 Blood - Blood Anaerobic Blood Culture - Final 01/28/25 23:59 Blood - Blood Aerobic Blood Culture - Final No growth in 5 days. 01/28/25 23:59 Blood - Blood Anaerobic Blood Culture - Final No growth in 5 days. 01/29/25 07:25 Tissue - Right Groin Gram Stain - Final 01/29/25 07:25 Tissue - Right Groin Culture & Sensitivity - Final Escherichia Coli Staph Aureus María Albicans 01/30/25 05:41 Clean Catch Urine [place] Count - Final No growth. 01/30/25 05:41 Clean Catch Urine - Final No growth. CT abdomen and pelvis 02/01/25: showed the patient has postsurgical changes centered on the right inguinal region, collection of fluid and gas seen within the anterior abdominal wall, measuring up to 8.9 x 9.8 x 4.4 cm, containing an air-fluid level with some contrast opacification. No clear tract between the collection and bowel lumen. A small tract extending from the posterolateral aspect of the collection toward the more caudal surgical tract along the course of the inferior surgical drain towards the subcutaneous right inguinal region. Bilateral layering small pleural effusions noted. Assessment And Plan 1. Postoperative intra-abdominal abscess: wound dehiscence of right inguinal hernia repair with secondary enterocutaneous fistula. 2. Small bowel obstruction 3. Abdominal aortic aneurysm 4. COPD 5. Hypertension 6. anemia of chronic disease 7. severe protein calories malnourishment 8. thrombocytopenia (improved) CT scan is showing that the patient has multifocal area of abscess collection and small bowel obstruction. Right groin growing E coli, Staph Aureus and María Albicans. Pt's is treated with Ciprofloxacin and Flagyl. continue abx for a total of 4 weeks. tentative stop date march 02. Micafungin dc on 02/11/25 blood culture negative urine culture no growth monitor WBC and fever trend case round and in agreement with Dr barahona
[2025-02-17] MEDS: OCTREOTIDE ACETATE 100 MCG/ML SQ SCH (20:09)
[2025-02-18 07:32] LABS: Anion Gap 8.3 mEq/L (5.0-15.0); Potassium 4.3 mEq/L (3.5-5.1)
[2025-02-18 07:38] LABS: Absolute Basophils 0.1 K/uL (0-0.5); Absolute Eosinophils 0.3 K/uL (0-0.5); Absolute Lymphocytes (CBC) 2.1 K/uL (0.7-4.9); Absolute Monocytes 1.1 K/uL (0.1-1.3); Absolute Neutrophil 3.8 K/uL (1.8-8.0); Basophils % 1.1 % (0-1.3); Eosinophils % 4.1 % (0-4.4); Hematocrit 28.2 % (36.0-45.0); Hemoglobin 9.7 g/dL (12.0-15.0); Lymphocytes % 28.1 % (15.3-44.8); MCH 31.5 pg (27.0-35.0); MCHC 34.6 g/dL (32.0-36.0); MCV 91.1 fL (80-100); MPV 8.7 fL (7.6-11.3); Monocytes % 14.7 % (3.3-12.3); Nucleated Red Blood Cells % 0.1 % (0-0); Platelets 274 thou/uL (152-406); RBC Red Blood Cell Count 3.09 M/uL (3.86-4.86); Red Cell Distribution Width 14.5 % (12.1-15.2)
--- NOTE | 2025-02-18 20:14 | PN ---
Date of Progress Note: 02/18/2025 Subjective: The patient is awake, alert, looks well. Objective: Vital Signs: Stable, afebrile. Abdomen: Benign. The DENNIS is put out approximately 25 cc last shift. Laboratory Data: Reviewed, essentially unchanged. Assessment: Enterocutaneous fistula. Recommendation: When the DENNIS output remains low for couple days, we will decrease the amount of octre otide and see what the patient's response is and then hopefully within the next week or 2, we can beg in oral feeds and try to wean the patient off the TPN. I discussed the case in detail with the medic al director of the [employer] and they are adamant that the patient does not qualify for LTAC a nd I gave him all the clinical information that is present in the care of this patient. I respectful ly disagree with their assessment of this patient's care. /MODL Voice ID: [id number] Report ID: [id number]
--- NOTE | 2025-02-18 21:14 | PN ---
Subjective: The patient is lying in bed, continue to be on TPN, Cipro, and Flagyl. Denies any abdom inal pain, chest pain, shortness of breath. Objective: Vital Signs: Temperature 97.9, pulse 56, respirations 20, blood pressure 109/54. Lungs: Basal crackles. Heart: S1, S2. Regular. Abdomen: Soft, nontender. Bowel sounds present. Right lower quadrant tenderness. Extremities: No edema. Laboratory Data: Shows WBC 7.9, hemoglobin 9.7, platelets are 274. BUN of 18, creatinine 0.5. Assessment And Plan: 1. Postoperative enterocutaneous fistula, status post abdominal abscess drained from right inguinal h ernia repair. 2. Small bowel obstruction. 3. Abdominal aortic aneurysm. 4. Chronic obstructive pulmonary disease. 5. Anemia of chronic disease. 6. Severe protein-calorie malnourishment. 7. Thrombocytopenia, improved. 8. Continue to monitor signs of infection with WBC and fever trends. Groin culture grew Escherichia coli, Staphylococcus aureus, and María albicans. We will follow the patient as needed. NF/MODL Voice ID: [id number] Report ID: [id number]
[2025-02-19 06:11] LABS: Absolute Basophils 0.1 K/uL (0-0.5); Absolute Eosinophils 0.3 K/uL (0-0.5); Absolute Lymphocytes (CBC) 2.1 K/uL (0.7-4.9); Absolute Neutrophil 2.9 K/uL (1.8-8.0); Basophils % 0.8 % (0-1.3); Eosinophils % 4.4 % (0-4.4); Hematocrit 28.1 % (36.0-45.0); Hemoglobin 9.6 g/dL (12.0-15.0); Lymphocytes % 33.2 % (15.3-44.8); MCH 31.2 pg (27.0-35.0); MCHC 34.2 g/dL (32.0-36.0); MCV 91.3 fL (80-100); MPV 8.8 fL (7.6-11.3); Monocytes % 15.5 % (3.3-12.3); Neutrophils % 46.1 % (41.7-73.7); Nucleated Red Blood Cells % 0.1 % (0-0); Platelets 251 thou/uL (152-406); RBC Red Blood Cell Count 3.08 M/uL (3.86-4.86); Red Cell Distribution Width 14.5 % (12.1-15.2)
[2025-02-19 06:24] LABS: Anion Gap 4.9 mEq/L (5.0-15.0); Magnesium 1.9 mg/dL (1.6-2.4); Potassium 3.9 mEq/L (3.5-5.1)
--- NOTE | 2025-02-19 11:19 | PN ---
Subjective: The patient is awake, alert. No new complaints. Objective: Vital Signs: Stable. She is afebrile. Abdomen: Benign. Laboratory Data: Reviewed, they are stable. Her I's and O's revealed a DENNIS output of 150 cc over the last 24 to 36 hours, is not clear. We will g et more accurate recordings in the medical records. It is still greenish in color. Assessment: Enterocutaneous fistula. Recommendation: Continue TPN, octreotide, and antibiotics for the time being. We may get a CAT scan next week and if the drainage decreases, then we may consider beginning liquid diet when the drainag e is less than 50 cc. I may also consider putting some methylene blue in liquid and allowing the pat ient swallow that to see if indeed she still has a significant fistula or not. She is passing gas, s o there is no evidence of distal obstruction at this point. /MODL Voice ID: [id number] Report ID: [id number]
[2025-02-19] MEDS: KETOROLAC 30 MG/ML INJ IV ONE (15:42)
--- NOTE | 2025-02-19 22:14 | P.PN ---
Date of Service: 02/19/25 Subjective: Pt seen at bedside.Denied any concern. Denied chest pain or shortness of breath, N&V. Pt is not in distress Objective: General appearance: Alert and comfortable neuro: alert and oriented x 3. normal speech CVS: Normal S1 and S2 Lungs: Clear to auscultation bilaterally Abdomen: Soft, BS+, surgical dressing clean. DENNIS drain noted with dark brown liquid. Extremities: mild lower extremity edema Temp Pulse Resp BP Pulse Ox 97.6 F 54 18 107/57 L 94 02/17/25 12:00 02/17/25 12:00 02/17/25 12:00 02/17/25 12:00 02/17/25 12:00 wbc:6.3, Hgb 9.6, platelet 251, bun 21, cr 0.60 Microbiology Data (last 24 hrs): Microbiology 01/29/25 00:15 Blood - Blood Aerobic Blood Culture - Final No growth in 5 days. 01/29/25 00:15 Blood - Blood Anaerobic Blood Culture - Final 01/28/25 23:59 Blood - Blood Aerobic Blood Culture - Final No growth in 5 days. 01/28/25 23:59 Blood - Blood Anaerobic Blood Culture - Final No growth in 5 days. 01/29/25 07:25 Tissue - Right Groin Gram Stain - Final 01/29/25 07:25 Tissue - Right Groin Culture & Sensitivity - Final Escherichia Coli Staph Aureus María Albicans 01/30/25 05:41 Clean Catch Urine [place] Count - Final No growth. 01/30/25 05:41 Clean Catch Urine - Final No growth. CT abdomen and pelvis 02/01/25: showed the patient has postsurgical changes centered on the right inguinal region, collection of fluid and gas seen within the anterior abdominal wall, measuring up to 8.9 x 9.8 x 4.4 cm, containing an air-fluid level with some contrast opacification. No clear tract between the collection and bowel lumen. A small tract extending from the posterolateral aspect of the collection toward the more caudal surgical tract along the course of the inferior surgical drain towards the subcutaneous right inguinal region. Bilateral layering small pleural effusions noted. Assessment And Plan 1. Postoperative intra-abdominal abscess: wound dehiscence of right inguinal hernia repair with secondary enterocutaneous fistula. 2. Small bowel obstruction 3. Abdominal aortic aneurysm 4. COPD 5. Hypertension 6. anemia of chronic disease 7. severe protein calories malnourishment 8. thrombocytopenia (improved) CT scan is showing that the patient has multifocal area of abscess collection and small bowel obstruction. Right groin growing E coli, Staph Aureus and María Albicans. Pt's is treated with Ciprofloxacin and Flagyl. continue abx for a total of 4 weeks. tentative stop date march 02. Micafungin dc on 02/11/25 blood culture negative urine culture no growth monitor WBC and fever trend case round and in agreement with Dr barahona
[2025-02-20 04:44] LABS: Absolute Basophils 0.1 K/uL (0-0.5); Absolute Eosinophils 0.3 K/uL (0-0.5); Absolute Lymphocytes (CBC) 2.7 K/uL (0.7-4.9); Absolute Monocytes 1.1 K/uL (0.1-1.3); Absolute Neutrophil 3.2 K/uL (1.8-8.0); Basophils % 0.9 % (0-1.3); Eosinophils % 4.4 % (0-4.4); Hematocrit 29.2 % (36.0-45.0); Hemoglobin 10.3 g/dL (12.0-15.0); Lymphocytes % 36.1 % (15.3-44.8); MCH 32.2 pg (27.0-35.0); MCHC 35.1 g/dL (32.0-36.0); MCV 91.8 fL (80-100); MPV 9.3 fL (7.6-11.3); Monocytes % 15.3 % (3.3-12.3); Neutrophils % 43.3 % (41.7-73.7); Nucleated Red Blood Cells % 0.1 % (0-0); Platelets 211 thou/uL (152-406); RBC Red Blood Cell Count 3.19 M/uL (3.86-4.86); Red Cell Distribution Width 14.3 % (12.1-15.2)
[2025-02-20 05:00] LABS: Anion Gap 6.8 mEq/L (5.0-15.0); Magnesium 1.9 mg/dL (1.6-2.4); Potassium 3.8 mEq/L (3.5-5.1)
--- NOTE | 2025-02-20 12:31 | PN ---
Date of Progress Note: 02/20/2025 Subjective: The patient is awake, alert. No complaint. Passing gas. She had a small bowel movemen t yesterday. Her is DENNIS output is less than 50 cc last couple of shifts. Abdomen is benign. Laboratory Data: Reviewed. Assessment: Enterocutaneous fistula. Recommendation: We will continue present management. However, we will reduce sips of clear liquids and banana chips and see how the patient does and monitor the output carefully, but if the output rem ains low, we can wean her off the octreotide and hopefully the TPN. We can switch the antibiotics to oral antibiotics. The patient is slowly progressing. /MODL Voice ID: [id number] Report ID: [id number]
[2025-02-20] MEDS: Banana Flakes/T-Galactooligos 1 Dose Packet PO SCH (14:00)
[2025-02-20] MEDS ORDERED: OCTREOTIDE ACETATE 100 MCG/ML SQ SCH (14:00)
[2025-02-21] MEDS ORDERED: IPRATROPIUM BROM 0.5MG/2.5ML NEB PRN (07:46)
[2025-02-21] MEDS ORDERED: ALBUTEROL 2.5 MG/3 ML NEB SOL NEB PRN (07:48)
[2025-02-21] MEDS: POTASSIUM 25 MEQ EFFERV TAB PO ONE (09:02)
--- NOTE | 2025-02-21 21:19 | P.PN ---
Date of Service: 02/18/25 Subjective Patient is continuing to remain stable. Patient denies any new complaints. Clinical symptoms remain stable. 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 --ID consultation, awaiting for LTAC placement --Ciprofloxacin, Flagyl, and Micafungin. continue abx and antifungal for a total of 4 weeks with tentative stop date march 02 --PT consult appreciated (2) Abdominal aortic aneurysm Current Visit: Yes Status: Chronic -- Stable; outpatient follow-up (3) COPD Current Visit: Yes Status: Chronic COPD exacerbation--stable (4) History of tachyarrhythmia Current Visit: Yes Status: Acute Heart rate has been stable; will DC telemetry per patient request (5) Hypertension Current Visit: Yes Status: Chronic Blood pressure stable (6) Osteoarthritis Current Visit: Yes Status: Chronic Stable (7) GERD/anemia Current Visit: Yes Status: Chronic Stable Discharge planning: Await for LTAC placement.
--- NOTE | 2025-02-21 21:25 | P.PN ---
Date of Service: 02/19/25 Subjective Patient is continuing to remain stable. Patient denies any new complaints. Clinical symptoms remain stable. 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 --ID consultation, awaiting for LTAC placement-surgery spoke to the insurance company and they declined. Will work on discharge with home. --Ciprofloxacin, Flagyl, and Micafungin. continue abx and antifungal for a total of 4 weeks with tentative stop date march 02 --PT consult appreciated -- Fistula output is approximately 100 cc/day. Add octreotide 100 mcg subcutaneously 3 times daily; once fistula output decreases less than 50 cc and possible discharge. (2) Abdominal aortic aneurysm Current Visit: Yes Status: Chronic -- Stable; outpatient follow-up (3) COPD Current Visit: Yes Status: Chronic COPD exacerbation--stable (4) History of tachyarrhythmia Current Visit: Yes Status: Acute Heart rate has been stable; will DC telemetry per patient request (5) Hypertension Current Visit: Yes Status: Chronic Blood pressure stable (6) Osteoarthritis Current Visit: Yes Status: Chronic Stable (7) GERD/anemia Current Visit: Yes Status: Chronic Stable Discharge planning: Await for LTAC placement.
--- NOTE | 2025-02-21 21:28 | P.PN ---
Date of Service: 02/20/25 Subjective Patient denies any new complaints. Patient is requesting a diet. General surgery recommended clear liquid diet. Continue monitoring fistula output and we have added octreotide 3 times daily after talking to pharmacy. Give up to 14 days. Continue monitoring fistula output. 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 --ID consultation, awaiting for LTAC placement-surgery spoke to the insurance company and they declined. Will work on discharge with home. --Ciprofloxacin, Flagyl, and Micafungin. continue abx and antifungal for a total of 4 weeks with tentative stop date march 02 --PT consult appreciated -- Fistula output is approximately 100 cc/day-slowly decreasing. Add octreotide 100 mcg subcutaneously 3 times daily; once fistula output decreases less than 50 cc and possible discharge. (2) Abdominal aortic aneurysm Current Visit: Yes Status: Chronic -- Stable; outpatient follow-up (3) COPD Current Visit: Yes Status: Chronic COPD exacerbation--stable (4) History of tachyarrhythmia Current Visit: Yes Status: Acute Heart rate has been stable; will DC telemetry per patient request (5) Hypertension Current Visit: Yes Status: Chronic Blood pressure stable (6) Osteoarthritis Current Visit: Yes Status: Chronic Stable (7) GERD/anemia Current Visit: Yes Status: Chronic Stable Discharge planning: Going home with home health
--- NOTE | 2025-02-21 21:34 | P.PN ---
Date of Service: 02/21/25 Subjective Patient is an 84-year-old female who was admitted to the hospital for intra- abdominal abscess secondary to wound dehiscence of a right abdominal hernia repair and patient developed a enterocutaneous fistula. Patient was on TPN and has been kept NPO. Patient was scheduled to go to LTAC but insurance denied. Now working on a home with home health once fistula output is less than roughly 50 cc a day. Continuing with TPN at this time but we started a clear liquid diet. Will wean off the TPN according to general surgery. Will get dietary consultation as well and get a calorie count. 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 --ID consultation, surgery spoke to the insurance company and they declined. Will work on discharge with home health. --Ciprofloxacin, Flagyl, and Micafungin. continue antibiotic and antifungal for a total of 4 weeks with tentative stop date march 02 --PT consult appreciated --Fistula output is approximately 80cc/day-slowly decreasing. Add octreotide 100 mcg subcutaneously 3 times daily; once fistula output decreases less than 50 cc and possible discharge. (2) Abdominal aortic aneurysm Current Visit: Yes Status: Chronic -- Stable; outpatient follow-up (3) COPD Current Visit: Yes Status: Chronic COPD exacerbation--stable (4) History of tachyarrhythmia Current Visit: Yes Status: Acute Heart rate has been stable; will DC telemetry per patient request (5) Hypertension Current Visit: Yes Status: Chronic Blood pressure stable (6) Osteoarthritis Current Visit: Yes Status: Chronic Stable (7) GERD/anemia Current Visit: Yes Status: Chronic Stable Discharge planning: Going home with home health
[2025-02-22 05:11] LABS: AST/SGOT 18 U/L (15-37); Albumin 1.8 g/dL (3.4-5.0); Albumin/Globulin Ratio 0.4 (1.1-1.8); Alkaline Phosphatase 113 U/L (45-117); Anion Gap 5.3 mEq/L (5.0-15.0); BUN Blood Urea Nitrogen 22 mg/dL (7-18); Bicarbonate 36 mEq/L (21-32); Bilirubin Total 0.5 mg/dL (0.2-1.0); Globulin 4.3 g/dL (2.3-3.5); Glomerular Filtration Rate 87 ml/min (=/>90); Glucose Level 149 mg/dL (74-106); Potassium 4.3 mEq/L (3.5-5.1); Protein, Total 6.1 g/dL (6.4-8.2); Sodium Level 132 mEq/L (136-145)
[2025-02-22 05:39] LABS: ALT/SGPT < 14 U/L (13-56)
[2025-02-22 05:48] LABS: Absolute Eosinophils 0.3 K/uL (0-0.5); Absolute Lymphocytes (CBC) 3.5 K/uL (0.7-4.9); Absolute Monocytes 1.4 K/uL (0.1-1.3); Absolute Neutrophil 3.7 K/uL (1.8-8.0); Basophils % 0.5 % (0-1.3); Eosinophils % 2.9 % (0-4.4); Hematocrit 30.3 % (36.0-45.0); Hemoglobin 10.3 g/dL (12.0-15.0); Lymphocytes % 38.8 % (15.3-44.8); MCH 31.3 pg (27.0-35.0); MCV 91.8 fL (80-100); MPV 9.3 fL (7.6-11.3); Monocytes % 16.1 % (3.3-12.3); Neutrophils % 41.7 % (41.7-73.7); Platelets 197 thou/uL (152-406); Red Cell Distribution Width 14.5 % (12.1-15.2)
--- NOTE | 2025-02-22 09:38 | P.PN ---
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 Tolerating TPN without issues Blood and urine cx were without growth Dr. Stovall, general surgeon is following Wound cx grew E. coli, Staph Aureus, and María Albicans ID consulted - recommending 4 weeks total abx. (End date: ~03/02) Continue cipro / flagyl (02/02-) s/p micafungin (02/01-02/11) 02/22 - Tolerating CLD without issues. Asking for soft foods, Pain well managed. Fistula output slowly decreasing Accounts Receivable Clerk consulted Continue PT wean TPN Abdominal aortic aneurysm Stable. f/u outpatient Chronic COPD Stable. Continue home nebs Hx of Tachyarrhythmia Cardiology consulted HR stable for several days telemetry DC'd per patient request Hypertension Osteoorthritis resume home meds GERD IV protonix Chronic anemia Daily labs. Stable VTE: Lovenox Code: Full Dispo: Home w/HH Denied LTAC. Dispo planning home wiht HH once fistula output further improves
--- NOTE | 2025-02-22 12:15 | PN ---
Date of Progress Note: 02/22/2025 Subjective: The patient is awake, alert. No complaint. Vitals stable, afebrile. Her drain output was 120 yesterday and 30 cc in the last shift. Her labs are stable. Objective: Vital Signs: Stable. She is afebrile. Abdomen: Benign. Assessment: Enterocutaneous fistula. Recommendation: I discussed the case with dietitian. We will advance to Ensure Liquid and then High Protein. If she tolerate it, wean her off the TPN, and we will get a CT of the abdomen and pelvis t omorrow to assess the collection and see if she needs any other intervention prior to evaluation for discharge hopefully later this week. /MODL Voice ID: [id number] Report ID: [id number]
[2025-02-22] MEDS: ENSURE CLEAR 200 ML CAN PO SCH (14:00)
--- NOTE | 2025-02-22 14:29 | P.PN ---
Date of Service: 02/22/25 Subjective: Pt seen at bedside.Denied any concern. Denied chest pain or shortness of breath, N&V. Pt is not in distress Objective: General appearance: Alert and comfortable neuro: alert and oriented x 3. normal speech CVS: Normal S1 and S2 Lungs: Clear to auscultation bilaterally Abdomen: Soft, BS+, surgical dressing clean. DENNIS drain noted with dark brown liquid. Extremities: mild lower extremity edema Temp Pulse Resp BP Pulse Ox 97.8 F 56 16 107/56 L 95 02/22/25 12:00 02/22/25 12:00 02/22/25 12:00 02/22/25 12:00 02/22/25 12:00 wbc:8.9, Hgb 10.3, platelet 197, bun 22, cr 0.67 Microbiology Data (last 24 hrs): Microbiology 01/29/25 00:15 Blood - Blood Aerobic Blood Culture - Final No growth in 5 days. 01/29/25 00:15 Blood - Blood Anaerobic Blood Culture - Final 01/28/25 23:59 Blood - Blood Aerobic Blood Culture - Final No growth in 5 days. 01/28/25 23:59 Blood - Blood Anaerobic Blood Culture - Final No growth in 5 days. 01/29/25 07:25 Tissue - Right Groin Gram Stain - Final 01/29/25 07:25 Tissue - Right Groin Culture & Sensitivity - Final Escherichia Coli Staph Aureus María Albicans 01/30/25 05:41 Clean Catch Urine [place] Count - Final No growth. 01/30/25 05:41 Clean Catch Urine - Final No growth. CT abdomen and pelvis 02/01/25: showed the patient has postsurgical changes centered on the right inguinal region, collection of fluid and gas seen within the anterior abdominal wall, measuring up to 8.9 x 9.8 x 4.4 cm, containing an air-fluid level with some contrast opacification. No clear tract between the collection and bowel lumen. A small tract extending from the posterolateral aspect of the collection toward the more caudal surgical tract along the course of the inferior surgical drain towards the subcutaneous right inguinal region. Bilateral layering small pleural effusions noted. Assessment And Plan 1. Postoperative intra-abdominal abscess: wound dehiscence of right inguinal hernia repair with secondary enterocutaneous fistula. 2. Small bowel obstruction 3. Abdominal aortic aneurysm 4. COPD 5. Hypertension 6. anemia of chronic disease 7. severe protein calories malnourishment 8. thrombocytopenia (improved) CT scan is showing that the patient has multifocal area of abscess collection and small bowel obstruction. Right groin growing E coli, Staph Aureus and María Albicans. Pt's is treated with Ciprofloxacin and Flagyl. continue abx for a total of 4 weeks. tentative stop date march 02. Micafungin dc on 02/11/25 blood culture negative urine culture no growth monitor WBC and fever trend case round and in agreement with Dr barahona
--- NOTE | 2025-02-22 15:38 | RAD REPORT ---
EXAMINATION: Abdomen Pelvis Wo Contrast CLINICAL INDICATION: Female, 84 years old.post op TECHNIQUE: CT abdomen and pelvis was performed, without IV contrast, as per department protocol. Axia l, sagittal and coronal reconstructions were obtained. One or more of the following dose reduction techniques were used: Automated exposure control, adjustment of the mA and/or kV according to the pat ient size, and/or iterative reconstruction. Unless otherwise specified, incidental findings do not require dedicated imaging follow-up. [id number]. IV CONTRAST: Not administered. COMPARISON: 02/11/2025 FINDINGS: The lack of intravenous contrast limits the sensitivity of this exam for evaluation of solid visceral organs, vascular structures, and retroperitoneum. LOWER CHEST: Small left and trace right pleural effusion.No significant pericardial effusion. Mild co ronary artery calcifications. Aortic valve calcifications. UPPER GI: No significant abnormality. LIVER: No significant focal abnormality. GALLBLADDER/BILE DUCTS: Sludge versus noncalcified stones.? PANCREAS: No mass, ductal dilation, or meredith-pancreatic fluid. SPLEEN: Unremarkable. ADRENALS: No adrenal masses. KIDNEYS AND URETERS: No hydronephrosis.No suspicious renal mass.Nonobstructing renal calculi.No urete ral calculi. ABDOMINAL AORTA AND OTHER VESSELS: Unchanged infrarenal abdominal aortic aneurysm measuring 2.9 to 3 cm.. PERITONEUM: No abnormal free fluid. No free air. LYMPH NODES: No pathologic lymphadenopathy. ABDOMINAL WALL: Enteric contrast present within the right rectus sheath as is a surgical drain consis tent with a known fistula. This is not substantially changed. Increased midline fluid subjacent to the laparotomy defect compared with prior. There is some trace gas. There may be a connection from re ctus sheath collection to the subcutaneous midline fluid though there is no enteric contrast. Prior inguinal hernia repair. SMALL BOWEL/COLON: Small bowel has normal course and caliber. No colonic wall thickening or pericolon ic inflammatory changes. URINARY BLADDER: Underdistended but grossly unremarkable. REPRODUCTIVE ORGANS: No pathologic process. MUSCULOSKELETAL: Multilevel degenerative changes in the spine. No acute fracture. 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 Remote L2 compression fracture. ADDITIONAL FINDINGS: None. IMPRESSION: Persistent communication/fistula from the distal small bowel to a fluid, gas, and contrast containing collection in the right rectus sheath. Mild increased fluid subjacent to the laparotomy defect at the midline without enteric contrast but w ith trace gas could be as result of a small connection to the right rectus sheath process.
--- NOTE | 2025-02-23 12:11 | PN ---
Date of Progress Note: 02/23/2025 Subjective: The patient is awake, alert. No complaint. Labs noted is essentially unchanged. Her output, however, has increased to 100-150 cc of drainage per shift since we started the oral feeds. Her CT of the abdomen and pelvis shows enteric contents present within the right rectus sheath, has a surgical drain. There is not a substantial change. There is some trace gas. There is increased mi dline fluid adjacent to the laparotomy defect. There may be a connection from the rectus sheath keegan ection to the subcutaneous midline fluid, though there is no enteric contrast. Her abdomen is benign . There was hardly anything in the DENNIS drain when I saw it this morning. Assessment: Enterocutaneous fistula. Recommendations: We will turn down the liquids to clear liquids sips for time being. We will hold o ff the Ensure and continue octreotide and TPN for the time being and I will discuss the case with the radiologist regarding whether a percutaneous drainage procedure needs to be considered at this point . Plan of care discussed with the hospitalist team. /MODL Voice ID: [id number] Report ID: [id number]
--- NOTE | 2025-02-23 15:52 | P.PN ---
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 Tolerating TPN without issues Blood and urine cx were without growth Dr. Stovall, general surgeon is following Wound cx grew E. coli, Staph Aureus, and María Albicans ID consulted - recommending 4 weeks total abx. (End date: ~03/02) Continue cipro / flagyl (02/02-) s/p micafungin (02/01-02/11) 02/22 - Tolerating CLD without issues. Asking for soft foods, Pain well managed. Fistula output slowly decreasing Real Estate Site Analyst consulted Continue PT wean TPN 02/23 - stop date for Cipro / Flagyl on 03/02/[address] scan (fistula from distal small bowel to contrast continue right rectus sheath) discussed with Dr. Stovall Continue clear liquids for the time being. No plans for percutaneous drainage at this time Abdominal aortic aneurysm Stable. f/u outpatient Chronic COPD Stable. Continue home nebs Hx of Tachyarrhythmia Cardiology consulted HR stable for several days telemetry DC'd per patient request Hypertension Osteoorthritis resume home meds GERD IV protonix Chronic anemia Daily labs. Stable VTE: Lovenox Code: Full Dispo: Home w/HH Denied LTAC. Dispo planning home wiht HH once fistula output further improves
--- NOTE | 2025-02-23 20:36 | PN ---
Subjective: The patient lying in bed. No new complaints. Continue to have abdominal discomfort, st ill patient on n.p.o. Objective: Vital Signs: Temperature 97.8, pulse 60, respirations 16, blood pressure 108/58. Lungs: Basal crackles. Heart: S1, S2. Regular. Abdomen: Soft. Bowel sounds present. Tenderness at the right lower quadrant. Extremities: No edema. Laboratory Data: Labs reviewed. Assessment And Plan: 1. Intraabdominal abscess with status post surgical intervention, dehiscence of right inguinal hernia with secondary enterocutaneous fistula. 2. Chronic obstructive pulmonary disease. 3. Abdominal aortic aneurysm. 4. Anemia of chronic disease. 5. Severe protein-calorie malnourishment. 6. Currently on TPN, Cipro and Flagyl and p.o. vancomycin. Monitor signs of infection with WBC and f ever trends. We will follow the patient as needed. NF/MODL Voice ID: [id number] Report ID: [id number]
[2025-02-24 07:46] LABS: Absolute Eosinophils 0.4 K/uL (0-0.5); Absolute Monocytes 1.3 K/uL (0.1-1.3); Absolute Neutrophil 3.5 K/uL (1.8-8.0); Basophils % 0.5 % (0-1.3); Eosinophils % 4.6 % (0-4.4); Hematocrit 29.9 % (36.0-45.0); Hemoglobin 10.1 g/dL (12.0-15.0); Lymphocytes % 36.3 % (15.3-44.8); MCH 31.1 pg (27.0-35.0); MCHC 33.8 g/dL (32.0-36.0); MCV 92.1 fL (80-100); MPV 9.3 fL (7.6-11.3); Monocytes % 15.8 % (3.3-12.3); Neutrophils % 42.8 % (41.7-73.7); Nucleated Red Blood Cells % 0.1 % (0-0); Platelets 161 thou/uL (152-406); RBC Red Blood Cell Count 3.25 M/uL (3.86-4.86); Red Cell Distribution Width 14.6 % (12.1-15.2)
[2025-02-24] MEDS: ENSURE HIGH PROTEIN 237 ML CAN PO SCH (08:38)
--- NOTE | 2025-02-24 08:57 | PN ---
Subjective: The patient is awake, alert. No complaint. The patient has very minimal output from he r DENNIS drain in the last couple of days. The patient's CT was reviewed with the radiologist yesterday and there is no need for any intervention, radiology procedure as the drain is where it is supposed t o be. I think the increase in the output was secondary to the Gastrografin that was given for the st udy rather than the fistula itself. Therefore, we will slowly advance her Ensure and wean the TPN do wn, that is the plan. Objective: Vital Signs: Stable. She is afebrile. Abdomen: Benign. Laboratory Data: Reviewed. Essentially unchanged. Everything is stable. Assessment: Enterocutaneous fistula. Recommendations: Increase p.o. intake with Ensure Clear, then going to Ensure high-protein and then weaned TPN. The patient is clinically stable, doing well. /MODL Voice ID: [id number] Report ID: [id number]
[2025-02-24 09:26] LABS: Differential Total Cells Count 100; Eosinophils 3 % (0-3); Lymphocytes 34 % (15-42); Monocytes 9 % (0-10); Reactive Lymphocytes 3 %; Segmented Neutrophils 51 % (40-80)
[2025-02-24 09:27] LABS: Blood Morphology Comment NOT SEEN (NOT SEEN); Platelet Estimate ADEQ
--- NOTE | 2025-02-24 13:54 | P.PN ---
Date of Service: 02/24/25 Subjective: no acute events overnight Slowly advancing to high-protein diet with Ensure Denies any fevers, chills. 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 Tolerating TPN without issues Blood and urine cx were without growth Dr. Stovall, general surgeon is following Wound cx grew E. coli, Staph Aureus, and María Albicans ID consulted - recommending 4 weeks total abx. (End date: ~03/02) Continue cipro / flagyl (02/02-) s/p micafungin (02/01-02/11) 02/22 - Tolerating CLD without issues. Asking for soft foods, Pain well managed. Fistula output slowly decreasing Quality Assurance Supervisor Chassis consulted Continue PT wean TPN 02/23 - stop date for Cipro / Flagyl on 03/02/[address] scan (fistula from distal small bowel to contrast continue right rectus sheath) discussed with Dr. Stovall Continue clear liquids for the time being. No plans for percutaneous drainage at this time 02/24 - advance to ensure high-protein. Currently on Cipro/Flagyl/p.o. [place] Abdominal aortic aneurysm Stable. f/u outpatient Chronic COPD Stable. Continue home nebs Hx of Tachyarrhythmia Cardiology consulted HR stable for several days telemetry DC'd per patient request Hypertension Osteoorthritis resume home meds GERD IV protonix Chronic anemia Daily labs. Stable VTE: Lovenox Code: Full Dispo: Home w/HH Denied LTAC. Dispo planning home wiht HH once fistula output further improves
--- NOTE | 2025-02-24 15:16 | P.PN ---
Date of Service: 02/24/25 Subjective: Pt seen at bedside.Denied any concern. Denied chest pain or shortness of breath, N&V. Pt is not in distress Objective: General appearance: Alert and comfortable neuro: alert and oriented x 3. normal speech CVS: Normal S1 and S2 Lungs: Clear to auscultation bilaterally Abdomen: Soft, BS+, surgical dressing clean. DENNIS drain noted with dark brown liquid. Extremities: mild lower extremity edema Temp Pulse Resp BP Pulse Ox 97.9 F 55 20 113/56 L 98 02/24/25 12:00 02/24/25 12:00 02/24/25 12:00 02/24/25 12:00 02/24/25 08:00 wbc:8.1, Hgb 10.1, platelet 161, bun 23, cr 0.59 Microbiology Data (last 24 hrs): Microbiology 01/29/25 00:15 Blood - Blood Aerobic Blood Culture - Final No growth in 5 days. 01/29/25 00:15 Blood - Blood Anaerobic Blood Culture - Final 01/28/25 23:59 Blood - Blood Aerobic Blood Culture - Final No growth in 5 days. 01/28/25 23:59 Blood - Blood Anaerobic Blood Culture - Final No growth in 5 days. 01/29/25 07:25 Tissue - Right Groin Gram Stain - Final 01/29/25 07:25 Tissue - Right Groin Culture & Sensitivity - Final Escherichia Coli Staph Aureus María Albicans 01/30/25 05:41 Clean Catch Urine [place] Count - Final No growth. 01/30/25 05:41 Clean Catch Urine - Final No growth. CT abdomen and pelvis 02/01/25: showed the patient has postsurgical changes centered on the right inguinal region, collection of fluid and gas seen within the anterior abdominal wall, measuring up to 8.9 x 9.8 x 4.4 cm, containing an air-fluid level with some contrast opacification. No clear tract between the collection and bowel lumen. A small tract extending from the posterolateral aspect of the collection toward the more caudal surgical tract along the course of the inferior surgical drain towards the subcutaneous right inguinal region. Bilateral layering small pleural effusions noted. Ct abdomen/pevis 02/22:Persistent communication/fistula from the distal small bowel to a fluid, gas, and contrast containing collection in the right rectus sheath. Mild increased fluid subjacent to the laparotomy defect at the midline without enteric contrast but with trace gas could be as result of a small connection to the right rectus sheath process Assessment And Plan 1. Postoperative intra-abdominal abscess: wound dehiscence of right inguinal hernia repair with secondary enterocutaneous fistula. 2. Small bowel obstruction 3. Abdominal aortic aneurysm 4. COPD 5. Hypertension 6. anemia of chronic disease 7. severe protein calories malnourishment 8. thrombocytopenia (improved) CT scan is showing that the patient has multifocal area of abscess collection and small bowel obstruction. Right groin growing E coli, Staph Aureus and María Albicans. Pt's is treated with Ciprofloxacin and Flagyl. continue abx for a total of 4 weeks. tentative stop date march 02. Micafungin dc on 02/11/25 blood culture negative urine culture no growth monitor WBC and fever trend case round and in agreement with Dr barahona
--- NOTE | 2025-02-25 10:38 | PN ---
Date of Progress Note: 02/25/2025 Subjective: The patient is awake, alert. No complaint. Tolerating Ensure better. Objective: Vital Signs: Stable, afebrile. DENNIS drain put out minimal output. Abdomen: Benign. Assessment: Enterocutaneous fistula. Recommendation: Discontinue TPN. Check with ID regarding oral antibiotics and discontinue octreotid e. If the patient's DENNIS output does not increase over the next 24 hours, the patient can be discharge d home tomorrow on oral antibiotics and DENNIS drain with Home Health. The patient is clinically doing w ell. /MODL Voice ID: [id number] Report ID: [id number]
--- NOTE | 2025-02-25 12:24 | P.PN ---
Subjective Date of Service: 02/25/25 Chief Complaint: Wound dehiscence Subjective: No chest pain or shortness of breath. No nausea or vomiting. abdominal pain controlled. No obvious bleeding. Looks comfortable in the bed. Objective: General appearance: Alert and comfortable CVS: Normal S1 and S2 Lungs: Clear to auscultation bilaterally Abdomen: Soft, BS+, no tenderness present, drain present on right side of abdomen Extremities: no lower extremity edema Physical Examination - Vital Signs Temperature: 97.4 F Blood Pressure: 139/69 Pulse: 75 Respirations: 16 Pulse Ox (%): 95 - Studies Medications List Reviewed: Yes Assessment And Plan - Plan Intra-abdominal abscess secondary to dehiscence of right inguinal hernia with secondary enterocutaneous fistula Abdominal aortic aneurysm Chronic COPD Hx of Tachyarrhythmia Hypertension Osteoorthritis GERD Chronic anemia Intra-abdominal abscess secondary to dehiscence of right inguinal hernia with secondary enterocutaneous fistula s/p ex lap with drainage of intra-abdominal abscess, lysis of adhesions, exploration of right groin wound with removal of mesh (01/29) Patient on a clear liquid diet. Tolerating TPN without issues Blood and urine cx were without growth Dr. Stovall, general surgeon is following Wound cx grew E. coli, Staph Aureus, and María Albicans ID consulted - recommending 4 weeks total abx. (End date: ~03/02) Continue cipro / flagyl (02/02-) s/p micafungin (02/01-02/11) 02/22 - Tolerating CLD without issues. Asking for soft foods, Pain well managed. Fistula output slowly decreasing [employer] consulted Continue PT wean TPN 02/23 - stop date for Cipro / Flagyl on 03/02/[address] scan (fistula from distal small bowel to contrast continue right rectus sheath) discussed with Dr. Stovall Continue clear liquids for the time being. No plans for percutaneous drainage at this time 02/24 - advance to ensure high-protein. Currently on Cipro/Flagyl/p.o. Vanco 02/25-no changes today, waiting for surgery clearance, prob home tomorrow as per surgery Abdominal aortic aneurysm Stable. f/u outpatient Chronic COPD Stable. Continue home nebs Hx of Tachyarrhythmia Cardiology consulted HR stable for several days telemetry DC'd per patient request Hypertension Osteoorthritis resume home meds GERD IV protonix Chronic anemia Daily labs. Stable planning home wiht tomorrow or day after tomorrow as per surgery
--- NOTE | 2025-02-25 19:12 | PN ---
Subjective: The patient is lying in bed. Denies any discomfort. Denies any problems with antibioti c. Objective: Vital Signs: Temperature 97, pulse 61, respirations 16, blood pressure 104/53. Lungs: Clear basal crackles. Heart: S1, S2. Regular. Abdomen: Soft, nontender. Bowel sounds present. DENNIS drain in place. Extremities: No edema. Laboratory Data: Labs reviewed. Assessment And Plan: 1. Postoperative intraabdominal abscess, wound dehiscence, right inguinal hernia repair with secondar y enterocutaneous fistula. 2. Small bowel obstruction. 3. Abdominal aortic aneurysm. 4. Chronic obstructive pulmonary disease. 5. Hypertension. 6. Anemia of chronic disease. 7. Protein-calorie malnourishment. 8. Monitor signs of infection with WBC and fever trends. No other recommendation. NF/MODL Voice ID: [id number] Report ID: [id number]
[2025-02-26 06:52] LABS: Absolute Basophils 0.1 K/uL (0-0.5); Absolute Eosinophils 0.2 K/uL (0-0.5); Absolute Lymphocytes (CBC) 3.6 K/uL (0.7-4.9); Absolute Neutrophil 3.4 K/uL (1.8-8.0); Basophils % 0.9 % (0-1.3); Eosinophils % 2.4 % (0-4.4); Hematocrit 32.1 % (36.0-45.0); Hemoglobin 11.1 g/dL (12.0-15.0); MCH 31.3 pg (27.0-35.0); MCHC 34.5 g/dL (32.0-36.0); MCV 90.9 fL (80-100); MPV 8.7 fL (7.6-11.3); Monocytes % 12.6 % (3.3-12.3); Neutrophils % 41.1 % (41.7-73.7); Nucleated Red Blood Cells % 0.1 % (0-0); Platelets 178 thou/uL (152-406); RBC Red Blood Cell Count 3.53 M/uL (3.86-4.86); Red Cell Distribution Width 14.8 % (12.1-15.2)
[2025-02-26 07:06] LABS: Anion Gap 5.2 mEq/L (5.0-15.0); Potassium 4.2 mEq/L (3.5-5.1)
[2025-02-26 08:26] VITALS: TEMP 97.8
[2025-02-26 09:00] VITALS: BP 158/74
--- NOTE | 2025-02-26 10:33 | PN ---
Date of Progress Note: 02/26/2025 Subjective: The patient is awake, alert. Tolerating her low-fiber diet. DENNIS output is minimal. No significant pain. Objective: Vital Signs: Stable, afebrile. Abdomen: Benign. Assessment: Enterocutaneous fistula. Recommendation: The patient was cleared from surgery for discharge on Cipro and Flagyl. Wound care as ordered. Record DENNIS output q.12. Follow up in my office in 1 week. We will get an outpatient CT of the abdomen to evaluate the status of her collection and probably remove the drain in a week or tw o. /MODL Voice ID: [id number] Report ID: [id number]
--- NOTE | 2025-02-26 12:14 | P.DS ---
Admission Date: 01/28/25 Discharge Date: 02/26/25 Disposition: ROUTINE DISCHARGE Discharge Condition: FAIR Reason for Admission: Wound dehiscence Brief History of Present Illness: Patient is 84 years of age admitted with through the hospital with anterior cutaneous fistula and abscess Hospital Course: Patient was seen by Dr. Stovall underwent an operative procedure for the infection with lysis of adhesions patient had a previous surgery done at the time of discharge patient was doing well alert oriented abdomen very soft no rebound guarding there was no drainage labs chemistries reviewed to be discharged home on Cipro and Flagyl for [address] Stovall Discharge note from Dr. Stovall Date of Progress Note: 02/26/2025 Subjective: The patient is awake, alert. Tolerating her low-fiber diet. DENNIS outpu t is minimal. No significant pain. Objective: Vital Signs: Stable, afebrile. Abdomen: Benign. Assessment: Enterocutaneous fistula. Recommendation: The patient was cleared from surgery for discharge on Cipro and Flagyl. Wound care as ordered. Record DENNIS output q.12. Follow up in my office in 1 week. We will get an outpatient CT of the abdomen to evaluate the status of her collection and probably remove the drain in a week or two. Vital Signs/Physical Exam: Temp Pulse Resp BP Pulse Ox 97.8 F 93 H 14 158/74 H 93 02/26/25 04:00 02/26/25 08:57 02/26/25 04:00 02/26/25 08:57 02/26/25 04:00 Laboratory Data at Discharge: WBC 8.30 thou/uL (4.3-10.9) 02/26/25 06:40 Hgb 11.1 g/dL (12.0-15.0) L 02/26/25 06:40 Hct 32.1 % (36.0-45.0) L 02/26/25 06:40 Plt Count 178 thou/uL (152-406) 02/26/25 06:40 Sodium 133 mEq/L (136-145) L 02/26/25 06:40 Potassium 4.2 mEq/L (3.5-5.1) 02/26/25 06:40 BUN 24 mg/dL (7-18) H 02/26/25 06:40 Creatinine 0.83 mg/dL (0.55-1.02) 02/26/25 06:40 Glucose 116 mg/dL (74-106) H 02/26/25 06:40 Phosphorus 3.0 mg/dL (2.5-4.9) 01/30/25 04:50 Magnesium 2.0 mg/dL (1.6-2.4) 02/22/25 04:21 Total Bilirubin 0.5 mg/dL (0.2-1.0) 02/22/25 04:21 AST 18 U/L (15-37) 02/22/25 04:21 ALT < 14 U/L (13-56) 02/22/25 04:21 Alkaline Phosphatase 113 U/L (45-117) 02/22/25 04:21 Home Medications: Budesonide/Glycopyr/Formoterol [Breztri Aerosphere Inhaler] 2 puff IH DAILY 01/16/25 Acetaminophen [8 Hour Pain Relief] 650 mg PO 12 PRN 01/17/25 Propranolol [Inderal LA*] 60 mg PO DAILY 01/17/25 Ropinirole HCl [Requip*] 1 mg PO BEDTIME 01/17/25 Pantoprazole [Protonix Tab*] 40 mg PO DAILYAC 30 Days #30 tab 01/20/25 Ciprofloxacin HCl [Cipro 500 MG Tablet] 500 mg PO BID 10 Days #20 tab 02/26/25 metroNIDAZOLE [Flagyl] 500 mg PO Q8H 10 Days #30 tab 02/26/25 New Medications: Ciprofloxacin HCl [Cipro 500 MG Tablet] 500 mg PO BID 10 Days #20 tab metroNIDAZOLE [Flagyl] 500 mg PO Q8H 10 Days #30 tab Physician Discharge Instructions: Patient may shower Dry gauze to wound daily Record DENNIS output every 12 hours, bring record to office Teach patient and family how to record DENNIS output and strip tubing Resume home meds and dietlow fiber with Ensure as instructed Follow-up my office 1 week, call for appointment Antibiotics per the hospitalist team My office will call in [facility] and [facility] to patient's pharmacy Activity as tolerated, no heavy lifting or strenuous exercise Diet: Low fiber Followup: Ronnie Stovall MD [ACTIVE - CAN ADMIT] - 1 Week Gena Stovall DO [Primary Care Provider] - 1-2 Weeks
== END 2025-02-26 10:28 | disposition home or self-care (01) | DRG 856 ==
LOC: 2ND 22:48 → 3RD-ICU 01-29 07:05 → 2ND 02-05 18:56
PROVIDERS: ADMIT Internal Medicine; ATTEND Internal Medicine Sleep Medicine
PROC: 0WPF0JZ Removal of Synthetic Substitute from Abdominal Wall, Open Approach (ICD-10-PCS; 2025-01-29)
PROC: 0J980ZZ Drainage of Abdomen Subcutaneous Tissue and Fascia, Open Approach (ICD-10-PCS; 2025-01-29)
PROC: 02HV33Z Insertion of Infusion Device into Superior Vena Cava, Percutaneous Approach (ICD-10-PCS; 2025-01-29)
PROC: 3E0436Z Introduction of Nutritional Substance into Central Vein, Percutaneous Approach (ICD-10-PCS; 2025-01-29)
PROC: 0DH67UZ Insertion of Feeding Device into Stomach, Via Natural or Artificial Opening (ICD-10-PCS; 2025-01-29)
PROC: 0DNU0ZZ Release Omentum, Open Approach (ICD-10-PCS; principal; 2025-01-29 06:00)
PROC: 0T9B70Z Drainage of Bladder with Drainage Device, Via Natural or Artificial Opening (ICD-10-PCS; 2025-01-30)
DX: T81.43XA Infection following a procedure, organ and space surgical site, initial encounter (principal); E43 Unspecified severe protein-calorie malnutrition; D62 Acute posthemorrhagic anemia; K56.609 Unspecified intestinal obstruction, unspecified as to partial versus complete obstruction; T81.321A Disruption or dehiscence of closure of internal operation (surgical) wound of abdominal wall muscle or fascia, initial encounter; K63.2 Fistula of intestine; E87.6 Hypokalemia; I10 Essential (primary) hypertension; E78.5 Hyperlipidemia, unspecified; I49.9 Cardiac arrhythmia, unspecified; K21.9 Gastro-esophageal reflux disease without esophagitis; M19.90 Unspecified osteoarthritis, unspecified site; D69.6 Thrombocytopenia, unspecified; I71.40 Abdominal aortic aneurysm, without rupture, unspecified; J44.9 Chronic obstructive pulmonary disease, unspecified; F17.200 Nicotine dependence, unspecified, uncomplicated; B96.20 Unspecified Escherichia coli [E. coli] as the cause of diseases classified elsewhere; B95.61 Methicillin susceptible Staphylococcus aureus infection as the cause of diseases classified elsewhere; Z68.28 Body mass index [BMI] 28.0-28.9, adult; Z79.899 Other long term (current) drug therapy
CPT/HCPCS: 36415; 36569; 71045; 74018; 74176; 74177; 74178; 80048; 80053; 80202; 81001; 82330; 82947; 83036; 83605; 83735; 83880; 84100; 84145; 85025; 86140; 86225; 87040; 87070; 87077; 87086; 87088; 87176; 87186; 87205; 88300; 93005; 93306; 93970; 94010; 94640; 97110; 97116; 97161; 97530; J0360; J0612; J0692; J0694; J0744; J1100; J1171; J1650; J1938; J2248; J2270; J2354; J2371; J2405; J2470; J2704; J2710; J3010; J3370; J3475; J3480; J3535; J7030; J7040; J7050; J7060; J7120; J7613; J7644; Q9967